=== PATIENT | female | born 1980 | race Caucasian/White ===

== ENCOUNTER 2019-10-31 08:02 | Emergency (ER) | payer OTHER, SELFPAY ==
[2019-10-31 08:07] VITALS: BP 131/92; PULSE 68; RESP 18; TEMP 36.8; O2SAT 99
--- NOTE | 2019-10-31 08:13 | ECG_ITS ---
Measurements Intervals [place] Rate: 73 P: 39 UT: 136 QRS: 66 QRSD: 87 T: 49 QT: 354 QTc: 391 Interpretive Statements SINUS RHYTHM NORMAL ECG Electronically Signed On 10-31-2019 15:58:42 SOCIAL MEDIA ANALYST by Torsten uY D.O.
--- NOTE | 2019-10-31 08:20 | ED.GENADULT ---
HPI - General Adult General Chief complaint: Unspecified Stated complaint: leg pain/tingling Time Seen by Provider: 10/31/19 08:12 Source: patient Mode of arrival: ambulatory Limitations: no limitations History of Present Illness HPI narrative: Pt is a 39 y/o female who presents to the ED with c/o CARLA leg pain that started this morning. Pt has been having rt hip, rt elbow, and rt shoulder pain for a few months as well. She noticed her CARLA leg pain while she was at work. 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 She denies any recent fall or injury. Pt denies N/V, chills, fever. MD complaint: Leg pain Onset (ago): hour(s) (this morning) Location: lower extremity (CARLA) Pain Consistency: constant Associated symptoms: other (rt hip, rt elbow, and rt shoulder pain) Related Data Allergies Allergy/AdvReac Type Severity Reaction Status Date / Time amoxicillin AdvReac Intermediate N&V/DROWSY Verified 10/31/19 08:12 meperidine AdvReac Intermediate REDNESS Verified 10/31/19 08:12 AND BURNING AT IV SITE WITH INJECTION Review of Systems Review of Systems: All systems reviewed & are unremarkable except as noted in HPI and below Constitutional: Constitutional: Denies chills and Reports fever(s) Gastrointestinal: Gastrointestinal: Denies nausea and Denies vomiting Musculoskeletal: Musculoskeletal: Reports other (rt hip, rt elbow, and rt shoulder pain, CARLA leg pain) PMFSH Past Medical History Medical History (Updated 10/31/19 @ 09:43 by Wilber Hunter MD) Ankle fracture, left Arthritis Back injury GI bleed HSV infection Injury of left hip Kidney infection Left hand fracture Right clavicle fracture Surgical History Surgical History (Updated 10/31/19 @ 08:55 by Vinay Harman) H/O dilation and curettage Social History Social History (Updated 10/31/19 @ 08:55 by Vinay Harman) Smoking status: Current every day smoker Exam Narrative: Exam Narrative: GENERAL: Well-appearing, well-nourished, and in no acute distress. HEAD: Normocephalic, atraumatic. EYES: PERRLA and EOMI. ENT: Nares clear, no rhinorrhea or epistaxis. Mucous membranes moist. NECK: Supple. CHEST: Clear to auscultation. No respiratory distress. HEART: Regular rate and rhythm. No murmur heard. Normal peripheral pulses. ABDOMEN: Soft, nontender, nondistended, normal active bowel sounds. EXTREMITIES: Normal range of motion. No edema. SKIN: Warm, dry, no rash. NEURO: No focal deficits. Alert and oriented x3. PSYCH: Normal mood and affect. Course Course Emergency Course: Patient comfortably lying on the stretcher in no discomfort. I discussed her lab work the patient at this time there is no evidence of rhabdomyolysis. Her pain appears to be more more musculoskeletal origin advised her to take pain medication as prescribed. She states that her pain has much improved after IV Toradol. Vital Signs Vital signs: Vital Signs Temperature 36.8 C 10/31/19 08:07 Pulse Rate 68 10/31/19 08:07 Respiratory Rate 18 10/31/19 08:07 Blood Pressure 131/92 H 10/31/19 08:07 Pulse Oximetry 99 10/31/19 08:07 Temperature 36.8 C 10/31/19 08:07 Pulse Rate 68 10/31/19 08:07 Respiratory Rate 18 10/31/19 08:07 Blood Pressure 131/92 H 10/31/19 08:07 Pulse Oximetry 99 10/31/19 08:07 Medical Decision Making Vital Signs Vital Signs: Vital Signs Temperature 36.8 C 10/31/19 08:07 Pulse Rate 68 10/31/19 08:07 Respiratory Rate 18 10/31/19 08:07 Blood Pressure 131/92 H 10/31/19 08:07 Pulse Oximetry 99 10/31/19 08:07 Temperature 36.8 C 10/31/19 08:07 Pulse Rate 68 10/31/19 08:07 Respiratory Rate 18 10/31/19 08:07 Blood Pressure 131/92 H 10/31/19 08:07 Pulse Oximetry 99 10/31/19 08:07 Lab Data Result diagrams: 10/31/19 08:36 10/31/19 08:36 Labs: Lab Results 10/31/19 10/31/19 Range/Units 08:36 08:36 WBC 7.9 (4.5-10.0) K/mm3 RBC 4.42 (4.
[2019-10-31] MEDS: KETOROLAC 30 MG/ML VIAL (*BKC) IV PUSH (08:32)
[2019-10-31 08:45] LABS: Basophils Percent Auto 0.5 % (0.2-1.2); Eosinophils Absolute Auto 0.3 K/mm3 (0-0.3); Eosinophils Percent Auto 3.2 % (0-4.4); Hematocrit 40.6 % (37.0-47.0); Hemoglobin 13.5 g/dL (12.0-15.0); Immature Granulocyte Absolute 0.03 K/mm3 (0.00-0.031); Immature Granulocyte Percent A 0.4 % (0-0.5); Lymphocytes Absolute Auto 2.25 K/mm3 (0.9-3.2); Lymphocytes Percent Auto 28.7 % (18.3-44.2); Mean Corpuscular HGB Conc 33.3 g/dl (32-36); Mean Corpuscular Hemoglobin 30.5 pg (26-34); Mean Corpuscular Volume 91.9 fl (80-100); Mean Platelet Volume 9.4 fl (7.4-10.4); Monocytes Absolute Auto 0.7 K/mm3 (0.1-0.6); Monocytes Percent Auto 8.4 % (2.6-8.5); Neutrophils Absolute Auto 4.6 K/mm3 (1.3-6.7); Neutrophils Percent Auto 58.8 % (45.5-73.1); Platelet Count Result 273 k/mm3 (150-375); Red Blood Count 4.42 M/mm3 (4.2-5.4); Red Cell Distribution Width 12.4 % (11.5-14.5); White Blood Count 7.9 K/mm3 (4.5-10.0)
[2019-10-31 08:56] LABS: Alanine Aminotransferase 19 U/L (4-35); Alkaline Phosphatase 69 U/L (38-126); Aspartate Amino Transferase 25 U/L (14-36); Bilirubin,Total 0.3 mg/dL (0.2-1.3); Blood Urea Nitrogen 9 mg/dL (7-17); Calcium 8.8 mg/dL (8.4-10.2); Carbon Dioxide 27 mmol/L (22-30); Chloride 102 mmol/L (98-107); Creatine Kinase 120 U/L (30-135); Estimated CRCL calculation 78 ml/min; Estimated Glomerular Filt Rate > 60; Glucose 84 mg/dL (65-105); Potassium 4.2 mmol/L (3.4-5.0); Sodium 136 mmol/L (137-145)
--- NOTE | 2019-10-31 09:44 | ED.GENADULT ---
HPI - General Adult General Chief complaint: Unspecified Stated complaint: leg pain/tingling Time Seen by Provider: 10/31/19 08:12 Source: patient Mode of arrival: ambulatory Limitations: no limitations History of Present Illness Location: lower extremity (CARLA) Associated symptoms: other (rt hip, rt elbow, and rt shoulder pain) Related Data Allergies Allergy/AdvReac Type Severity Reaction Status Date / Time amoxicillin AdvReac Intermediate N&V/DROWSY Verified 10/31/19 08:12 meperidine AdvReac Intermediate REDNESS Verified 10/31/19 08:12 AND BURNING AT IV SITE WITH INJECTION PMFSH Past Medical History Medical History (Updated 10/31/19 @ 09:43 by Wilber Hunter MD) Ankle fracture, left Arthritis Back injury GI bleed HSV infection Injury of left hip Kidney infection Left hand fracture Right clavicle fracture Surgical History Surgical History (Updated 10/31/19 @ 08:55 by Vinay Harman) H/O dilation and curettage Social History Social History (Updated 10/31/19 @ 08:55 by Vinay Harman) Smoking status: Current every day smoker Course Vital Signs Vital signs: Vital Signs Temperature 36.8 C 10/31/19 08:07 Pulse Rate 68 10/31/19 08:07 Respiratory Rate 18 10/31/19 08:07 Blood Pressure 131/92 H 10/31/19 08:07 Pulse Oximetry 99 10/31/19 08:07 Temperature 36.8 C 10/31/19 08:07 Pulse Rate 68 10/31/19 08:07 Respiratory Rate 18 10/31/19 08:07 Blood Pressure 131/92 H 10/31/19 08:07 Pulse Oximetry 99 10/31/19 08:07 Medical Decision Making Vital Signs Vital Signs: Vital Signs Temperature 36.8 C 10/31/19 08:07 Pulse Rate 68 10/31/19 08:07 Respiratory Rate 18 10/31/19 08:07 Blood Pressure 131/92 H 10/31/19 08:07 Pulse Oximetry 99 10/31/19 08:07 Temperature 36.8 C 10/31/19 08:07 Pulse Rate 68 10/31/19 08:07 Respiratory Rate 18 10/31/19 08:07 Blood Pressure 131/92 H 10/31/19 08:07 Pulse Oximetry 99 01/29/20 08:07 Lab Data Result diagrams: 10/31/19 08:36 10/31/19 08:36 Labs: Lab Results 10/31/19 10/31/19 Range/Units 08:36 08:36 WBC 7.9 (4.5-10.0) K/mm3 RBC 4.42 (4.2-5.4) M/mm3 Hgb 13.5 (12.0-15.0) g/dL Hct 40.6 (37.0-47.0) % MCV 91.9 (80-100) fl MCH 30.5 (26-34) pg MCHC 33.3 (32-36) g/dl RDW 12.4 (11.5-14.5) % Plt Count 273 (150-375) k/mm3 MPV 9.4 (7.4-10.4) fl Immature Gran % (Auto) 0.4 (0-0.5) % Neut % (Auto) 58.8 (45.5-73.1) % Lymph % (Auto) 28.7 (18.3-44.2) % [place] % (Auto) 8.4 (2.6-8.5) % Eos % (Auto) 3.2 (0-4.4) % Baso % (Auto) 0.5 (0.2-1.2) % Lymph # (Auto) 2.25 (0.9-3.2) K/mm3 [place] # (Auto) 0.7 H (0.1-0.6) K/mm3 Eos # (Auto) 0.3 (0-0.3) K/mm3 Baso # (Auto) 0.0 (0.0-0.1) K/mm3 Abs Immat Gran (auto) 0.03 (0.00-0.031) K/mm3 Absolute Neuts (auto) 4.6 (1.3-6.7) K/mm3 Absolute Nucleated RBC 0.0 (0.0-0.012) K/mm3 Nucleated RBC % 0.0 (0.0-0.2) % Sodium 136 L (137-145) mmol/L Potassium 4.2 (3.4-5.0) mmol/L Chloride 102 (98-107) mmol/L Carbon Dioxide 27 (22-30) mmol/L BUN 9 (7-17) mg/dL Creatinine 0.70 (0.7-1.0) mg/dL Estim Creat Clear Calc 78 ml/min Estimated GFR > 60 (59 - ) Glucose 84 (65-105) mg/dL Calcium 8.8 (8.4-10.2) mg/dL Total Bilirubin 0.3 (0.2-1.3) mg/dL AST 25 (14-36) U/L ALT 19 (4-35) U/L Alkaline Phosphatase 69 (38-126) U/L Total Creatine Kinase 120 (30-135) U/L Total Protein 7.0 (6.3-8.2) g/dL Albumin 4.0 (3.5-5.1) g/dL ECG Data EKG #1: ECG completion date: 10/31/19 ECG completion time: 08:16 EKG Interpretation: normal rate (73), sinus rhythm (73), no ectopy, no ST changes and normal QRS Discharge Plan Discharge Clinical Impression: Myalgia Patient Disposition: Still a Patient Condition: Stable Instructions: Musculoskeletal Pain (ED) Additional
--- NOTE | 2019-10-31 10:05 | PC.NURSE ---
Patient very upset and angry at time of discharge. Patient states All of you people do not know anything, all you did was draw my blood. I needed an xray of my whole body today. This is stupid shit and a waste of my time. I will go to another hospital. I dont want your discharge papers. Patient pulled out IV without RN present.
== END 2019-10-31 10:10 | disposition home or self-care (01) ==
PROVIDERS: Emergency Provider Family Medicine; PCP Internal Medicine
DX: M79.10 Myalgia, unspecified site (principal); M19.90 Unspecified osteoarthritis, unspecified site; Z87.440 Personal history of urinary (tract) infections; F17.200 Nicotine dependence, unspecified, uncomplicated
CPT/HCPCS: 36415; 80053; 82550; 85025; 93005; 96374; 99284; J1885

== ENCOUNTER 2020-07-10 06:56 | Outpatient (NON) | payer OTHER, SELFPAY ==
[2020-07-10 16:38] LABS: SARS-CoV-2 RNA PCR Negative
== END 2020-07-10 06:57 ==
PROVIDERS: PCP Internal Medicine; Visit Provider Obstetrics & Gynecology
DX: Z20.828 Contact with and (suspected) exposure to other viral communicable diseases (principal); O90.89 Other complications of the puerperium, not elsewhere classified; R68.89 Other general symptoms and signs
CPT/HCPCS: 87635; C9803; U0003

== ENCOUNTER 2020-07-22 22:52 | Observation (INO) | payer OTHER, SELFPAY ==
--- NOTE | 2020-07-22 22:51 | PC.NURSE ---
Report called to [facility] at [phone]. Pt transported via wheelchair to OB department.
[2020-07-22 23:06] VITALS: BP 132/79; PULSE 88
[2020-07-22 23:15] VITALS: BP 138/87; PULSE 84
[2020-07-22 23:30] VITALS: BP 129/72; PULSE 70
[2020-07-22 23:45] VITALS: BP 120/69; PULSE 71
[2020-07-23] VITALS: BP 121/80; PULSE 67
[2020-07-23 00:21] VITALS: BMI 28.7
--- NOTE | 2020-07-23 00:21 | LDADM ---
This patient, Donna Perez, was admitted to OB Post 117 on 07/22/20 at 22:52. Plans for labor, pain management and were discussed with patient. Patient/family oriented to hospital policies and general routines including ID bracelet, bed and alarms, visiting hours, pain management, procedures, bathroom and other care routines, personal items, smoking policy, room service/diet and guest tray routines, infant security routines, and visiting hours. Patient/Family are encouraged to report perceived risks to care and to ask questions if they do not understand what they are told or what they should do. See OBIX for further documentation.
--- NOTE | 2020-07-23 00:36 | PC.NURSE ---
07/22/2020-2252- pt came from ER c/o left sided abdominal pain that started at 7 pm tonight while working. pt states that she has been working on her feet for 8-10 hour days for about 2 weeks. pt states that she doesn't drink alot of fluids but chews on ice. no bleeding, leaking of fluid, pt is feeling baby move well. pt also states that she fell about 3 days ago and landed on her knee but did not hit her belly. 07/23/2020 000- called Brisa LOAIZAZander- informed her of pt admission. reviewed strip, pt states that she feels so much better since she has been here. not c/o abdominal pain since sitting down and drinking water. Discharge orders received. will educate pt on when to return to OB unit.
--- NOTE | 2020-07-25 03:10 | PM.OBTRLD ---
OB - Triage/Final Diagnosis Visit Information Date of evaluation: 07/23/20 Reason for evaluation: threatened labor
== END 2020-07-23 00:52 | disposition home or self-care (01) ==
PROVIDERS: Admitting Provider Obstetrics & Gynecology; PCP Internal Medicine; Visit Provider Obstetrics & Gynecology
DX: O47.9 False labor, unspecified (principal); Z3A.00 Weeks of gestation of pregnancy not specified
CPT/HCPCS: G0378; G0379

== ENCOUNTER 2020-08-22 05:00 | Inpatient (IN) | payer OTHER, SELFPAY ==
[2020-08-22] VITALS (60 sets, daily range): BP systolic 89–126; BP diastolic 44–86; PULSE 32–120; RESP 16; TEMP 36.2–37; O2SAT 95–100; BMI 28.7
[2020-08-22 05:45] LABS: Basophils Absolute Auto 0.1 K/mm3 (0.0-0.1); Basophils Percent Auto 0.7 % (0.2-1.2); Eosinophils Absolute Auto 0.1 K/mm3 (0-0.3); Eosinophils Percent Auto 0.6 % (0-4.4); Hematocrit 31.3 % (37.0-47.0); Hemoglobin 10.4 g/dL (12.0-15.0); Immature Granulocyte Absolute 0.09 K/mm3 (0.00-0.031); Immature Granulocyte Percent A 0.7 % (0-0.5); Lymphocytes Absolute Auto 3.15 K/mm3 (0.9-3.2); Lymphocytes Percent Auto 25.8 % (18.3-44.2); Mean Corpuscular HGB Conc 33.2 g/dl (32-36); Mean Corpuscular Hemoglobin 27.2 pg (26-34); Mean Corpuscular Volume 81.7 fl (80-100); Monocytes Absolute Auto 0.7 K/mm3 (0.1-0.6); Monocytes Percent Auto 5.7 % (2.6-8.5); Neutrophils Absolute Auto 8.1 K/mm3 (1.3-6.7); Neutrophils Percent Auto 66.5 % (45.5-73.1); Platelet Count Result 256 k/mm3 (150-375); Red Blood Count 3.83 M/mm3 (4.2-5.4); Red Cell Distribution Width 13.9 % (11.5-14.5); White Blood Count 12.2 K/mm3 (4.5-10.0)
--- NOTE | 2020-08-22 05:48 | LDADM ---
This patient, Donna Perez, was admitted to Labor/Delivery/Recovery 105 on 08/22/20 at 05:00. Plans for labor, pain management and were discussed with patient. Patient/family oriented to hospital policies and general routines including ID bracelet, bed and alarms, visiting hours, pain management, procedures, bathroom and other care routines, personal items, smoking policy, room service/diet and guest tray routines, security routines, and visiting hours. Patient/Family are encouraged to report perceived risks to care and to ask questions if they do not understand what they are told or what they should do. See OBIX for further documentation.
--- NOTE | 2020-08-22 06:41 | WPDANESEPP ---
Anes - Eval Pre Procedure Procedure: Labor epidural Date/Time: 08/22/20 06:41 Surgeon: Martha Preop Diagnosis: pain during labor Pre Op Diagnosis: Induction of Labor Patient Data Age: 40 Gender: F Height: 1.6 m Weight: 73.5 kg Allergies Allergy/AdvReac Type Severity Reaction Status Date / Time amoxicillin AdvReac Intermediate N&V/DROWSY Verified 10/31/19 08:12 meperidine AdvReac Intermediate REDNESS Verified 10/31/19 08:12 AND BURNING AT IV SITE WITH INJECTION Home Medications Medication Instructions Recorded Confirmed Type naproxen 500 mg PO BID PRN #14 tablet 10/31/19 Rx Laboratory Tests 08/22/20 08/22/20 05:35 05:35 WBC 12.2 K/mm3 H K/mm3 (4.5-10.0) RBC 3.83 M/mm3 L M/mm3 (4.2-5.4) Hgb 10.4 g/dL L D g/dL (12.0-15.0) Hct 31.3 % L % (37.0-47.0) MCV 81.7 fl fl (80-100) MCH 27.2 pg pg (26-34) MCHC 33.2 g/dl g/dl (32-36) RDW 13.9 % % (11.5-14.5) Plt Count 256 k/mm3 k/mm3 (150-375) MPV 10.0 fl fl (7.4-10.4) Immature Gran % (Auto) 0.7 % H % (0-0.5) Neut % (Auto) 66.5 % % (45.5-73.1) Lymph % (Auto) 25.8 % % (18.3-44.2) [place] % (Auto) 5.7 % % (2.6-8.5) Eos % (Auto) 0.6 % % (0-4.4) Baso % (Auto) 0.7 % % (0.2-1.2) Lymph # (Auto) 3.15 K/mm3 K/mm3 (0.9-3.2) [place] # (Auto) 0.7 K/mm3 H K/mm3 (0.1-0.6) Eos # (Auto) 0.1 K/mm3 K/mm3 (0-0.3) Baso # (Auto) 0.1 K/mm3 K/mm3 (0.0-0.1) Abs Immat Gran (auto) 0.09 K/mm3 H K/mm3 (0.00-0.031) Absolute Neuts (auto) 8.1 K/mm3 H K/mm3 (1.3-6.7) Absolute Nucleated RBC 0.0 K/mm3 K/mm3 (0.0-0.012) Nucleated RBC % 0.0 % % (0.0-0.2) RPR Pending Patient hx anesthesia problems: none Family hx anesthesia problems: none COUNTS INCLUDE 234 BEDS AT THE [facility] Past Medical History Medical History (Updated 08/22/20 @ 06:41 by Angela Hernandez CRNA) Ankle fracture, left Arthritis Back injury GI bleed HSV infection Injury of left hip Kidney infection Left hand fracture Right clavicle fracture Surgical History Surgical History (Updated 10/31/19 @ 08:55 by Vinay Harman) H/O dilation and curettage Social History Social History (Updated 10/31/19 @ 08:55 by Vinay Harman) Smoking status: Heavy tobacco smoker Tobacco type: cigarettes Second hand tobacco smoke exposure: Yes Substance use: current Gender identity (if verbalized by the patient): Female Sexual Orientation (if Verbalized by the Patient): Straight or Heterosexual Spiritual care concerns: No Exam Day of Procedure 08/22/20 06:41
[2020-08-22] MEDS: LACTATED RINGERS 1,000 ML 125 ML IV CONT ×2 (06:56→11:01)
[2020-08-22] MEDS: OXYTOCIN 30 UNITS/NS 500 ML 30 UNITS/500 ML BAG IV CONT (06:56)
--- NOTE | 2020-08-22 07:26 | WPDOBADMIT ---
Obstetrics - Admit Note Admission Note: record reviewed. No pertinent additions to the history and/or any subsequent changes in the physical findings that are not consistent with the expected course of the were found.Pt here for EIL at 39 weeks, SVE /-2 AROM large amount of clear, odorless amniotic fludi Additions to the history and/or subsequent changes in the physical findings follow. None.
[2020-08-22 08:18] LABS: Rapid Plasma Reagin Non-Reactive (NonReactive)
[2020-08-22] MEDS: ONDANSETRON INJ 4 MG/2 ML VIAL IV PUSH (11:01)
[2020-08-22 12:48] LABS: Amphetamine Screen Urine Negative (Negative); Barbiturate Screen Urine Negative (Negative); Benzodiazepines Screen Urine Negative (Negative); Cannabinoid Screen Urine Negative (Negative); Cocaine Screen Urine Negative (Negative); Methadone Screen Urine Negative (Negative); Opiate Screen Urine Negative (Negative); Phencyclidine Screen Urine Negative (Negative)
--- NOTE | 2020-08-22 12:53 | PM.OBPRVD ---
OB - Delivery Note Procedure Delivery date: 08/22/20 Procedure: vaginal delivery Intrapartal events: None Induction method: AROM and per pitocin protocol Delivery monitor: external FHT and external uterine Laceration Description: None Specimen: No Baby Date of : 08/22/20 Time of : 12:40 Weeks of gestation at delivery: 39 Infant gender: Male Weight (pounds): 6 Weight (ounces): 2 presentation: vertex position: Left Occiput Anterior Placenta delivery description: Spontaneous cord vessel description: 3 Vessels, Nuchal Cord and Clamped/Cut score one minute: 9 score five minutes: 9 Narrative: mother and baby skin to skin in stable condition
[2020-08-22] MEDS: OXYTOCIN 30 UNITS/NS 500 ML 30 UNITS/500 ML BAG 125 UNITS IV CONT (13:24)
[2020-08-23 05:01] LABS: Hemoglobin 9.6 g/dL (12.0-15.0)
--- NOTE | 2020-08-23 07:30 | PC.NURSE ---
PT introductions made and plan of care discussed per post , pain management, bottle feeding, daily care activities and pending discharge to home. PT verbalized understanding of such care.
--- NOTE | 2020-08-23 07:53 | PM.OBPNVD ---
OB - PN: Subj Subjective Date/time seen: 08/23/20 07:53 Patient comments: no complaints baby status: doing well OB - PN: Obj Data Labs CBC & Chem 7: 08/23/20 03:29 Labs: Laboratory Results - last 24 hr 08/22/20 08/22/20 08/23/20 05:35 12:05 03:29 Hgb 9.6 L Hct 29.0 L Urine Opiates Screen Negative Urine Methadone Screen Negative Ur Barbiturates Screen Negative Ur Phencyclidine Scrn Negative Ur Amphetamine Screen Negative U Benzodiazepines Scrn Negative Urine Cocaine Screen Negative U Cannabinoids Screen Negative RPR Non-reactive OB - PN A/P Plan day: 1 Plan: routine care and discharge home (F/U in 4 weeks) Time Spent With Patient Time: Total time spent is greater than 50% in coordination of care (as documented) at patient's floor/unit and/or counseling patient: Time with patient: less than 15 minutes Review of Systems Review of Systems: All systems reviewed & are unremarkable except as noted in HPI and below Exam Narrative: Exam Narrative: Fundus firm and vaginal flow controlled. No lower ext redness, warmth, or edema. Negative homans. Const: General: comfortable Chest: Breast/axilla inspection: normal inspection of the breasts Resp: Effort & Inspection: normal respiratory effort Cardio: Rate: regular rate GI: GI Palp: Yes Soft to palpation Psych: Appearance: grossly normal Affect: normal affect Attitude: cooperative Thought content: Yes Normal thought content present Judgement: Good judgement present (Psych)
--- NOTE | 2020-08-23 07:53 | PM.OBDSVD ---
DS: Admitting Diagnosis Admitting Diagnosis Admitting Diagnosis: Induction of Labor OB - DS: Summary OB Procedures : None OB Procedures Intrapartum: Spontaneous Vag Delivery OB Procedures: : None Time Spent with Patient Time attestation: Total time spent providing and/or coordinating discharge services: DS: Data Data Completed and Pending Labs on day of discharge: Labs from last 24 hours 08/23/20 08/22/20 08/22/20 03:29 12:05 05:35 Hgb 9.6 L Hct 29.0 L Urine Opiates Screen Negative Urine Methadone Screen Negative Ur Barbiturates Screen Negative Ur Phencyclidine Scrn Negative Ur Amphetamine Screen Negative U Benzodiazepines Scrn Negative Urine Cocaine Screen Negative U Cannabinoids Screen Negative RPR Non-reactive Discharge Plan Discharge Discharging Clinician: Maryjo Combs Patient Disposition: Home, Self-Care Activity: pelvic rest Diet: as tolerated Patient Instructions: Antibiotic Form Stand Alone Forms: General Discharge Information Follow-up/Referrals: Brisa Perkins CNM [Certified Nurse Film Crew Member] - Discharge Medications: Continued aspirin 81 mg tablet,chewable RF: 0 No Action naproxen 500 mg tablet 500 mg PO BID PRN (Reason: pain) Qty: 14 RF: 0 Date of admission: 08/22/20 05:00 Primary Care Provider: AyakaSunny Admitting Provider: Andi Thomas Attending physician on admission: Andi Thomas Condition: Stable
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
[2020-08-23 11:00] VITALS: BP 137/73; PULSE 76; RESP 18; TEMP 36.6; O2SAT 100
[2020-08-23] MEDS: MULTIVIT/MIN/PREN/FOL AC/IRON TABLET 1 TAB PO (11:11)
[2020-08-23] MEDS: POLYSACCHARIDE IRON COMPLEX 150 MG CAPSULE PO (11:11)
[2020-08-23] MEDS: DOCUSATE SODIUM 100 MG CAPSULE PO (11:11)
[2020-08-23] MEDS: ACETAMINOPHEN 325 MG TABLET 650 MG PO (11:11)
[2020-08-23] MEDS: IBUPROFEN 600 MG TABLET PO (11:14)
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
--- NOTE | 2020-08-23 14:00 | PC.NURSE ---
PT received discharge instructions per protocol and verbalized understanding of such care.
[2020-08-26 09:34] VITALS: BP 114/79; PULSE 94; RESP 16; TEMP 36.8; O2SAT 99
== END 2020-08-23 14:35 | disposition home or self-care (01) | DRG 560 ==
LOC: ANHLDR 05:03 → ANHOB2 15:39
PROVIDERS: Advanced Practice Midwife; Admitting Provider Obstetrics & Gynecology; PCP Internal Medicine; Visit Provider Obstetrics & Gynecology
DX: O69.81X0 Labor and delivery complicated by cord around neck, without compression, not applicable or unspecified (principal); O99.334 Smoking (tobacco) complicating childbirth; F17.210 Nicotine dependence, cigarettes, uncomplicated; Z3A.39 39 weeks gestation of pregnancy; Z37.0 Single live birth
CPT/HCPCS: 36415; 80307; 85014; 85018; 85025; 86592; 86850; 86900; 86901; A9270; J2405; J2590; J2795; J7120

== ENCOUNTER 2021-02-21 11:30 | Emergency (ER) | payer OTHER, SELFPAY ==
[2021-02-21 11:48] VITALS: BP 117/81; PULSE 90; RESP 17; TEMP 36.7; O2SAT 98
--- NOTE | 2021-02-21 11:57 | PC.NURSE ---
Call For Help Contacted at this time. Sending advocate out at this time.
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
--- NOTE | 2021-02-21 13:41 | PC.NURSE ---
Patient states I am going outside for one minute, I will be back.
--- NOTE | 2021-02-21 13:49 | PC.NURSE ---
patient states that she does not have time to wait and wants to leave due to shift foreman issues. patient asked to stay for EDP evaluation and to talk with law enforcement once they arrive. patient back in room 22 at this time.
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
--- NOTE | 2021-02-21 14:01 | PC.NURSE ---
patient requesting to leave AMA, does not want any more exams or tests. EDP aware
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
== END 2021-02-21 15:05 | disposition left against medical advice (07) ==
PROVIDERS: Emergency Provider Emergency Medicine; PCP Internal Medicine
DX: T74.21XA Adult sexual abuse, confirmed, initial encounter (principal); R10.2 Pelvic and perineal pain; M19.90 Unspecified osteoarthritis, unspecified site; F17.210 Nicotine dependence, cigarettes, uncomplicated; Y07.9 Unspecified perpetrator of maltreatment and neglect
CPT/HCPCS: 99285

== ENCOUNTER 2021-03-09 00:27 | Emergency (ER) | payer OTHER, SELFPAY ==
[2021-03-09 00:40] VITALS: BP 131/84; PULSE 67; RESP 18; TEMP 36.6; O2SAT 100
--- NOTE | 2021-03-09 01:30 | PC.NURSE ---
pt states she is just going to see her doctor in the morning and that she needs to get home with her daughter. this rn informs pt of risks of leaving and that she can return if her symptoms continue or worsen. pt ambulated out of facility w/ steady gait.
== END 2021-03-09 01:30 | disposition left against medical advice (07) ==
PROVIDERS: PCP Obstetrics & Gynecology
DX: Z53.21 Procedure and treatment not carried out due to patient leaving prior to being seen by health care provider (principal)
CPT/HCPCS: 99199

== ENCOUNTER 2021-04-26 12:22 | Emergency (ER) | payer OTHER, SELFPAY ==
[2021-04-26 12:58] VITALS: BP 120/88; PULSE 88; RESP 16; TEMP 36.1; O2SAT 99
--- NOTE | 2021-04-26 13:07 | ED.SKABFB ---
HPI - Skin/Abscess/Foreign Bdy General Chief complaint: Skin/Abscess/Foreign Body Stated complaint: Skin Irration Time Seen by Provider: 04/26/21 13:05 Source: patient Mode of arrival: ambulatory Limitations: no limitations History of Present Illness HPI narrative: Donna Perez is a 41 yo female with no PMH who [facility] with round red sores all over her hands arms and legs that have evolved in the past 2 days. States she does not know started but she suspected it could be a spider bite Related Data Allergies Allergy/AdvReac Type Severity Reaction Status Date / Time amoxicillin AdvReac Intermediate N&V/DROWSY Verified 02/21/21 11:53 meperidine AdvReac Intermediate REDNESS Verified 02/21/21 11:53 AND BURNING AT IV SITE WITH INJECTION Review of Systems Review of Systems: Narrative: CONSTITUTIONAL: Denies fever, chills, sweats. EYES: Denies visual changes, redness, discharge. ENT: Denies rhinorrhea, congestion, sore throat, otalgia. CARDIOVASCULAR: Denies chest pain, palpitations, edema. RESPIRATORY: Denies dyspnea, wheezing, cough GASTROINTESTINAL: Denies abdominal pain, nausea, vomiting, diarrhea. GENITOURINARY: Denies dysuria, hematuria, abnormal discharge SKIN: Denies rash or itching. Multiple red and inflamed areas that are pussy and tender NEUROLOGIC: Denies numbness, or focal weakness. PSYCHIATRIC: Denies anxiety or depression. [facility] Past Medical History Medical History Ankle fracture, left Arthritis Back injury GI bleed HSV infection Injury of left hip Kidney infection Left hand fracture Right clavicle fracture Surgical History Surgical History H/O dilation and curettage Family History Family History Other Diabetes mellitus High cholesterol Hypertension Social History Social History Smoking status: Heavy tobacco smoker Tobacco type: cigarettes Second hand tobacco smoke exposure: Yes Substance use: current Gender identity (if verbalized by the patient): Female Spiritual care concerns: No Comments At time of signature, I agree with nursing past medical, surgical, social and family history. There is no relevant family history pertinent to the presenting complaint. Exam Narrative: Exam Narrative: GENERAL: This is a well-nourished, well-developed patient, in mild distress. HEAD: normocephalic, atraumatic. EYES:. Sclera clear/white. Vision is grossly intact. EARS: External ears normal, Hearing grossly intact. NOSE: External nose normal without nasal discharge, nares without redness, no rhinorrhea. THROAT: Mucous membranes moist, posterior pharynx NECK: Neck supple, CARDIOVASCULAR: Regular rate and rhythm without murmurs, gallops, or rubs. RESPIRATORY: Clear to auscultation. Breath sounds equal bilaterally. No wheezes, rales, or rhonchi. GASTROINTESTINAL: Abdomen soft, non-tender, SKIN: warm, intact with multiple areas on her arms and legs and her back that are erythematous mildly indurated warm and draining pus NEURO: awake, alert, and oriented to person, place and time. There were no obvious focal neurologic abnormalities. Steady gait EXTREMITIES: Normal range of motion. BACK: Nontender without deformity Course Course Emergency Course: Patient comes to [facility] with multiple erythematous tender pussy lesions on arms legs and back Started on Keflex and Bactrim Hibiclens wash Patient may also use hydrocortisone cream after washing Vital Signs Vital signs: Vital Signs Temperature 97.0 F L 04/26/21 12:58 Pulse Rate 88 04/26/21 12:58 Respiratory Rate 16 04/26/21 12:58 Blood Pressure 120/88 04/26/21 12:58 Pulse Oximetry 99 04/26/21 12:58 Temperature 97.0 F L 04/26/21 12:58 Pulse Rate 88 04/26
== END 2021-04-26 13:22 | disposition home or self-care (01) ==
PROVIDERS: Emergency Provider Nurse Practitioner; PCP Internal Medicine
DX: L03.114 Cellulitis of left upper limb (principal); L03.113 Cellulitis of right upper limb; L03.116 Cellulitis of left lower limb; L03.115 Cellulitis of right lower limb; L03.312 Cellulitis of back [any part except buttock and flank]; F17.210 Nicotine dependence, cigarettes, uncomplicated; M19.90 Unspecified osteoarthritis, unspecified site
CPT/HCPCS: 99213; G0463

== ENCOUNTER 2021-10-09 19:51 | Emergency (ER) | payer OTHER, SELFPAY ==
[2021-10-09 19:52] VITALS: BP 121/84; PULSE 141; RESP 18; TEMP 37.1; O2SAT 100
--- NOTE | 2021-10-09 20:18 | ED.URI ---
HPI - URI/Sore Throat General Chief Complaint: Fever Stated Complaint: Fever, I need a covid test. Time Seen by Provider: 10/09/21 20:07 Source: patient Mode of arrival: ambulatory Limitations: no limitations History of Present Illness HPI Narrative: Patient is a 41-year-old female complaining of cough, nasal congestion, body aches, fever, and chills that started last night. Patient states that she has been exposed to someone with Covid. Patient denies any chest pain, shortness of breath, abdominal pain, nausea, vomiting, diarrhea or urinary symptoms. Related Data Allergies Allergy/AdvReac Type Severity Reaction Status Date / Time amoxicillin AdvReac Intermediate N&V/DROWSY Verified 02/21/21 11:53 meperidine AdvReac Intermediate REDNESS Verified 02/21/21 11:53 AND BURNING AT IV SITE WITH INJECTION Review of Systems Review of Systems: All systems reviewed & are unremarkable except as noted in HPI and below Constitutional: Constitutional: Denies excessive sweating, Denies fatigue, Denies fever(s), Denies headache(s), Denies lethargy, Denies weakness and Denies weight loss Eyes: Eyes: Denies blurry vision, Denies change in vision and Denies loss of vision ENT: Denies dizziness, Denies ear discharge, Denies headache(s), Denies lip swelling, Denies epistaxis, Denies neck pain, Denies throat swelling and Denies tongue swelling Cardiovascular: Cardiovascular: Denies chest pain, Denies chest pain at rest, Denies chest pain with activity, Denies diaphoresis, Denies rapid heart rate, Denies edema, Denies irregular heart rhythm, Denies lightheadedness, Denies palpitations, Denies dyspnea and Denies dyspnea on exertion Respiratory: Respiratory: Denies chest congestion, Denies hemoptysis, Denies dyspnea and Denies dyspnea on exertion Gastrointestinal: Gastrointestinal: Denies abdominal pain, Denies melena, Denies hematochezia, Denies diarrhea, Denies nausea, Denies vomiting and Denies hematemesis Musculoskeletal: Musculoskeletal: Denies abnormal gait, Denies deformity, Denies joint swelling, Denies limited range of motion, Denies neck pain and Denies numbness Neurologic: Denies Abnormal speech present, Denies abnormal gait, Denies confusion, Denies dizziness, Denies headache(s), Denies focal weakness, Denies loss of vision, Denies numbness, Denies Other visual disturbances, Denies Sensory deficit (Neuro) and Denies weakness Psychiatric: Psychiatric: Denies confusion, Denies depression, Denies auditory hallucinations, Denies homicidal ideation and Denies suicidal ideation Endocrine: Endocrine: Denies cold intolerance, Denies excessive sweating, Denies fatigue, Denies heat intolerance and Denies palpitations Hematologic/Lymphatic: Hematologic/Lymphatic: Denies easy bleeding and Denies easy bruising Allergic/Immunologic: Allergic/Immunologic: Denies lip swelling, Denies throat swelling and Denies tongue swelling PMFSH Past Medical History Medical History Ankle fracture, left Arthritis Back injury GI bleed HSV infection Injury of left hip Kidney infection Left hand fracture Right clavicle fracture Surgical History Surgical History H/O dilation and curettage Family History Family History Other Diabetes mellitus High cholesterol Hypertension Social History Social History Smoking status: Heavy tobacco smoker Tobacco type: cigarettes Second hand tobacco smoke exposure: Yes Substance use: current Gender identity (if verbalized by the patient): Female Sexual Orientation (if Verbalized by the Patient): Straight or Heterosexual Spiritual care concerns: No Exam Const: General: cooperative, healthy appearing, comfortable, no acute distress, well developed, alert and awak
[2021-10-09] MEDS: IBUPROFEN 600 MG TABLET PO (20:27)
[2021-10-09] MEDS: ACETAMINOPHEN 325 MG TABLET 650 MG PO (20:28)
[2021-10-09 21:11] LABS: SARS-CoV-2 RNA PCR Positive
== END 2021-10-09 22:09 | disposition home or self-care (01) ==
PROVIDERS: Emergency Provider Emergency Medicine; PCP Internal Medicine
DX: U07.1 COVID-19 (principal); M19.90 Unspecified osteoarthritis, unspecified site; F17.210 Nicotine dependence, cigarettes, uncomplicated
CPT/HCPCS: 87804; 99283; A9270; C9803; U0003; U0005

== ENCOUNTER 2021-12-08 11:03 | Emergency (ER) | payer OTHER, SELFPAY ==
--- NOTE | ~2021-12-08 | XR_ITS ---
EXAMINATION: XR ribs LT 2V INDICATION: Left rib pain TECHNIQUE: 3 views of the left ribs were obtained. COMPARISON: 03/31/2007 FINDINGS: The visualized portions of the lungs are clear. There is no pleural effusion or pneumothora x. The cardiomediastinal silhouette is normal. No displaced rib fracture is identified. IMPRESSION: 1. No acute cardiopulmonary abnormality or evidence of displaced rib fracture. Reviewed, dictated and finalized at location B. 

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
[2021-12-08 11:19] VITALS: BP 113/79; PULSE 113; RESP 16; TEMP 37.4; O2SAT 100
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
== END 2021-12-08 12:10 | disposition home or self-care (01) ==
PROVIDERS: Emergency Provider Nurse Practitioner Family
DX: S16.1XXA Strain of muscle, fascia and tendon at neck level, initial encounter (principal); S29.011A Strain of muscle and tendon of front wall of thorax, initial encounter; V43.52XA Car driver injured in collision with other type car in traffic accident, initial encounter; M19.90 Unspecified osteoarthritis, unspecified site; F17.210 Nicotine dependence, cigarettes, uncomplicated
CPT/HCPCS: 71100; 72050; 99214; G0463

== ENCOUNTER 2022-04-27 10:42 | Emergency (ER) | payer OTHER, SELFPAY ==
[2022-04-27 10:51] VITALS: BP 124/84; PULSE 79; RESP 16; TEMP 36.6; O2SAT 99
--- NOTE | 2022-04-27 11:02 | ED.URI ---
HPI - URI/Sore Throat General Chief Complaint: Dental/Oral Stated Complaint: sore throat Time Seen by Provider: 04/27/22 11:00 Source: patient Mode of arrival: ambulatory History of Present Illness HPI Narrative: 42-year-old female presented for complaints of a sore to the gum at the top of front tooth for over one year since abscess had been treated, as well as left upper molar pain and bad taste for one month. Has not seen dentist in at least 5 years. Denies nausea, vomiting, difficulty swallowing, fever or chills. Hx dental caries. Smokes 1ppd. Has not taken anything for symptoms. Related Data Allergies Allergy/AdvReac Type Severity Reaction Status Date / Time amoxicillin AdvReac Intermediate N&V/DROWSY Verified 04/27/22 11:01 meperidine AdvReac Intermediate REDNESS Verified 04/27/22 11:01 AND BURNING AT IV SITE WITH INJECTION Review of Systems Review of Systems: CONSTITUTIONAL: Denies body aches, fever, chills ENT: Denies rhinorrhea, congestion, sore throat, or otalgia. Reports dental pain CARDIOVASCULAR: Denies chest pain, palpitations RESPIRATORY: Denies cough or dyspnea. SKIN: Denies rash, itching, or wounds. MUSCULOSKELETAL: Denies myalgia. NEUROLOGIC: Denies headache, numbness, tingling, or weakness. [facility] Past Medical History Medical History Ankle fracture, left Arthritis Back injury GI bleed HSV infection Injury of left hip Kidney infection Left hand fracture Right clavicle fracture Surgical History Surgical History H/O dilation and curettage Family History Family History Other Diabetes mellitus High cholesterol Hypertension Social History Social History Smoking status: Heavy tobacco smoker Tobacco type: cigarettes Second hand tobacco smoke exposure: Yes Substance use: current Gender identity (if verbalized by the patient): Female Sexual Orientation (if Verbalized by the Patient): Straight or Heterosexual Spiritual care concerns: No Comments At time of signature, I have reviewed and agree with nursing past medical, surgical, social and family history unless otherwise noted. Please see nursing chart for further information. There is no relevant family history pertinent to the presenting complaint Exam Narrative: GENERAL: well appearing; no acute distress. HEAD: Normocephalic, atraumatic. EYES: EOMI. No redness or drainage. Conjunctivae normal. ENT: Dental pain location of #16 molar, no apparent drainage, mild swelling and tenderness to palpation; approx 2mm diameter opaque lesion to gum above #9 without tenderness to palpation; Mucous membranes pink and moist. TMs normal bilaterally. Throat normal. Uvula midline. NECK: Normal AROM. No lymphadenopathy. CHEST: No respiratory distress. HEART: Regular rate and rhythm. SKIN: Warm, dry, no rash. NEURO: No focal deficits. Alert and oriented x3. Course Course Emergency Course: Patient is aware of diagnosis, understands and agrees to treatment plan. Anticipatory guidance given. Patient agrees to follow-up as directed and is aware of reasons to seek care at the emergency department. Portions of this record may have been created with voice recognition software Level of Care: Express Care Visit Vital Signs Vital signs: Vital Signs Temperature 97.9 F 04/27/22 10:51 Pulse Rate 79 04/27/22 10:51 Respiratory Rate 16 04/27/22 10:51 Blood Pressure 124/84 04/27/22 10:51 Pulse Oximetry 99 04/27/22 10:51 Oxygen Delivery Room Air 04/27/22 10:51 Temperature 97.9 F 04/27/22 10:51 Pulse Rate 79 04/27/22 10:51 Respiratory Rate 16 04/27/22 10:51 Blood Pressure 124/84 04/27/22 10:51 Pulse Oximetry 99 04/27/22 10:51 Oxygen Delivery R
== END 2022-04-27 11:17 | disposition home or self-care (01) ==
PROVIDERS: Emergency Provider Nurse Practitioner Family; PCP Internal Medicine
DX: K04.7 Periapical abscess without sinus (principal); F17.210 Nicotine dependence, cigarettes, uncomplicated; M19.90 Unspecified osteoarthritis, unspecified site
CPT/HCPCS: 99213; G0463

== ENCOUNTER 2022-09-28 08:51 | Emergency (ER) | payer OTHER, SELFPAY ==
--- NOTE | ~2022-09-28 | CT_ITS ---
CT ANGIOGRAM NECK AND HEAD History: Left visual changes. Technique: Serial spiral axial images through the head and neck were obtained during arterial phase I V injection of 100 cc of Omnipaque 350. 3-D postprocessing and MIP images were then reconstructed on the remote workstation. Dose reduction technique was used on this scan by utilizing automated exposur e control and iterative reconstruction technique. The dose-length product (DLP) was 1558.50 mGy-cm. CTA neck findings: Bilateral common carotid, internal carotid, and external carotid arteries are pat ent. The proximal right internal carotid artery demonstrates 0% stenosis relative to the normal dista l artery lumen diameter. The proximal left internal carotid artery demonstrates 0% stenosis relative to the normal distal artery lumen diameter. Bilateral vertebral arteries are patent, without stenosis or occlusion. CTA head findings: Distal vertebral arteries, basilar artery, and posterior cerebral arteries are pat ent. Distal internal carotid arteries, middle cerebral arteries, anterior cerebral arteries are paten t. No stenosis or occlusion. No aneurysm seen. Noncontrast brain images are unremarkable. No parenchymal mass or intracranial hemorrhage identified. Impression: No significant abnormality seen. Reviewed, dictated and finalized at location . ET BROKER Impression: No significant abnormality seen.
--- NOTE | ~2022-09-28 | CT_ITS ---
Noncontrast CT scan of the cervical spine Technique: Multiple contiguous axial [address] images of the cervical spine were obtained and rec onstructed in 2D sagittal and coronal planes on the acquisition scanner. Dose reduction technique was used on this scan by utilizing automated exposure control, adjustment of the mA and/or kV according to patient size. Clinical History: Pain Findings: No fractures or dislocations. Unremarkable visualized bony structures. The intervertebral disc spaces are preserved. No prevertebral soft tissue swelling. Impression: No fracture or subluxation of the cervical spine. Reviewed, dictated and finalized at location M. FIER Impression: No fracture or subluxation of the cervical spine.
[2022-09-28 08:55] VITALS: BP 152/86; PULSE 90; RESP 14; TEMP 36.9; O2SAT 98
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
[2022-09-28 09:36] LABS: Basophils Absolute Auto 0.1 K/mm3 (0.0-0.1); Basophils Percent Auto 0.8 % (0.2-1.2); Eosinophils Absolute Auto 0.7 K/mm3 (0-0.3); Eosinophils Percent Auto 5.8 % (0-4.4); Hematocrit 40.2 % (37.0-47.0); Hemoglobin 13.1 g/dL (12.0-15.0); Immature Granulocyte Absolute 0.05 K/mm3 (0.00-0.031); Immature Granulocyte Percent A 0.4 % (0-0.5); Lymphocytes Absolute Auto 2.93 K/mm3 (0.9-3.2); Mean Corpuscular HGB Conc 32.6 g/dl (32-36); Mean Corpuscular Hemoglobin 28.8 pg (26-34); Mean Corpuscular Volume 88.4 fl (80-100); Mean Platelet Volume 8.7 fl (7.4-10.4); Monocytes Absolute Auto 0.6 K/mm3 (0.1-0.6); Monocytes Percent Auto 4.9 % (2.6-8.5); Neutrophils Percent Auto 62.1 % (45.5-73.1); Platelet Count Result 274 k/mm3 (150-375); Red Blood Count 4.55 M/mm3 (4.2-5.4); Red Cell Distribution Width 14.4 % (11.5-14.5); White Blood Count 11.3 K/mm3 (4.5-10.0)
[2022-09-28 10:04] LABS: Anion Gap 3 mmol/L (8-16); Blood Urea Nitrogen 9 mg/dL (7-17); Calcium 8.2 mg/dL (8.4-10.2); Carbon Dioxide 27 mmol/L (22-30); Chloride 108 mmol/L (98-107); Estimated Glomerular Filt Rate > 60; Glucose 122 mg/dL (65-110); Potassium 3.9 mmol/L (3.4-5.0); Sodium 138 mmol/L (137-145)
[2022-09-28 11:06] VITALS: BP 108/71; PULSE 64; RESP 14; O2SAT 98
== END 2022-09-28 11:08 | disposition home or self-care (01) ==
PROVIDERS: Emergency Provider Physician Assistant; PCP Emergency Medicine
DX: R51.9 Headache, unspecified (principal); F17.210 Nicotine dependence, cigarettes, uncomplicated; M19.90 Unspecified osteoarthritis, unspecified site
CPT/HCPCS: 36415; 70496; 70498; 72125; 80048; 85025; 99284; Q9967

== ENCOUNTER 2022-09-28 11:25 | Outpatient (CLI) | payer OTHER, SELFPAY ==
--- NOTE | ~2022-09-28 | XR_ITS ---
Cervical Spine: AP and lateral views Clinical History: Pain Findings: The normal lordotic curve is maintained. The vertebral bodies and posterior elements appea r intact. The intervertebral disc spaces are well maintained. Pre-vertebral soft tissues are unremar kable. Impression: No significant abnormality is seen. Reviewed, dictated and finalized at [facility]. RANGE TECHNICIAN Impression: No significant abnormality is seen.
== END 2022-09-28 11:26 | disposition home or self-care (01) ==
PROVIDERS: PCP Emergency Medicine
DX: S19.9XXA Unspecified injury of neck, initial encounter (principal); X58.XXXA Exposure to other specified factors, initial encounter
CPT/HCPCS: 72040

== ENCOUNTER 2022-11-21 08:38 | Emergency (ER) | payer OTHER, SELFPAY ==
[2022-11-21 08:43] VITALS: BP 124/84; PULSE 80; RESP 18; TEMP 37.5; O2SAT 100
--- NOTE | 2022-11-21 09:41 | ED.DENTAL ---
HPI - Dental/Oral General Chief complaint: Dental/Oral Stated complaint: facial pain, toothache Time Seen by Provider: 11/21/22 08:58 Source: patient Mode of arrival: ambulatory Limitations: no limitations History of Present Illness HPI Narrative: Patient is a 42-year-old female who presents the ED with report of left-sided dental pain. Patient reports having left upper dental pain for the past 2 days. She does have known dental issues. She states the pain has been intermittent, but is very severe when it presents. Pain radiating to her lower left jaw, to her left facial cheek, into her left ear. She has been taking ibuprofen and Tylenol at home. She reports pain with chewing and talking, denies any difficulty breathing or swallowing, fevers, nausea, vomiting. Patient has an appointment with her dentist in early December. Related Data Allergies Allergy/AdvReac Type Severity Reaction Status Date / Time amoxicillin AdvReac Intermediate N&V/DROWSY Verified 04/27/22 11:01 meperidine AdvReac Intermediate REDNESS Verified 04/27/22 11:01 AND BURNING AT IV SITE WITH INJECTION Review of Systems Review of Systems: CONSTITUTIONAL: Denies fever, chills, or sweats. ENT: See HPI. CARDIOVASCULAR: Denies chest pain. RESPIRATORY: Denies dyspnea. GASTROINTESTINAL: Denies nausea, vomiting. All systems reviewed & are unremarkable except as noted in HPI and below PMFSH Past Medical History Medical History Ankle fracture, left Arthritis Back injury GI bleed HSV infection Injury of left hip Kidney infection Left hand fracture Right clavicle fracture Surgical History Surgical History H/O dilation and curettage Family History Family History Other Diabetes mellitus High cholesterol Hypertension Social History Social History Smoking status: Heavy tobacco smoker Tobacco type: cigarettes Second hand tobacco smoke exposure: Yes Substance use: current Gender identity (if verbalized by the patient): Female Sexual Orientation (if Verbalized by the Patient): Straight or Heterosexual Spiritual care concerns: No Exam Narrative: GENERAL: Uncomfortable appearing, well-nourished, non-toxic, in no acute distress. HEAD: Normocephalic, atraumatic. EYES: PERRLA/EOMI, conjunctiva clear. ENT: Diffuse dental decay and scattered dental caries. Dental shwetha present at tooth #15, left upper posterior molar. Tenderness along inner and outer gumline surrounding tooth, mild erythema noted. No focal swelling or signs of abscess. No fluctuance appreciated. No significant localized tenderness along left lower gumline. L ear exam with some cerumen noted to L EAC, no signs of cerumen impaction, no signs of TM erythema, bulging, perforation. Patient tolerating secretions. No posterior pharynx erythema. No tonsillar hypertrophy or exudate. Uvula midline. NECK: Supple. No adenopathy, no masses. RESPIRATORY: Airway patent, respirations nonlabored. CARDIOVASCULAR: Regular rate and rhythm without murmurs, rubs, or gallops. Radial pulses 2+ and equal bilaterally. MUSCULOSKELETAL: Moves all extremities. Strength/ROM intact without gross deformities. SKIN: Warm, dry, normal color. No rashes. NEURO: A&O X3. Speech clear. Cranial nerves II-XII grossly intact. Steady gait. No ataxic movements. PSYCHIATRIC: Anxious, tearful. Normal interaction. HENMT: Teeth image: 1. dental caries, tenderness surrounding tooth Course Vital Signs Vital signs: Vital Signs Temperature 99.5 F 11/21/22 08:43 Pulse Rate 80 11/21/22 08:43 Respiratory Rate 18 11/21/22 08:43 Blood Pressure 124/84 11/21/22 08:43 Pulse Oximetry 100 11/21/22 08:43 Temperature 99.5 F 11/21/22 0
[2022-11-21 10:07] VITALS: BP 124/76; PULSE 86; RESP 14; O2SAT 97
== END 2022-11-21 10:08 | disposition home or self-care (01) ==
LOC: ANHED 09:54
PROVIDERS: Emergency Provider Physician Assistant; PCP Emergency Medicine
DX: K02.9 Dental caries, unspecified (principal); M19.90 Unspecified osteoarthritis, unspecified site; F17.210 Nicotine dependence, cigarettes, uncomplicated
CPT/HCPCS: 99283

== ENCOUNTER 2022-12-02 14:31 | Outpatient (CLI) | payer OTHER, SELFPAY ==
--- NOTE | ~2022-12-02 | XR_ITS ---
XR chest 2V 12/02/2022 14:55 Indication: Pain between the shoulders. Tobacco use. Procedure: 2 view chest Comparison: 12/08/2021 Findings: there is lingular atelectasis. Heart size normal. No focal pneumonia, pleural effusion or p neumothorax. Impression: 1: Lingular atelectasis. Reviewed, dictated and finalized at location L. ITAL WARD CLERK Impression: 1: Lingular atelectasis.
--- NOTE | ~2022-12-02 | XR_ITS ---
XR foot RT min 3V 12/02/2022 14:56 INDICATION: Right lateral foot pain. PROCEDURE: 4 views right foot COMPARISON: No prior studies for comparison. FINDINGS: Fracture, dislocation or subluxation is not identified. There is a corticated ossific densi ty lateral to the navicular, likely representing an old avulsion fracture. No acute fracture, subluxa tion or dislocation. Lisfranc joint intact. The soft tissues appear within normal limits. No foreign bodies are identified. IMPRESSION: 1: NO ACUTE BONE OR JOINT ABNORMALITY IDENTIFIED. Reviewed, dictated and finalized at location L. HANDISING SPECIALIST
== END 2022-12-02 14:32 | disposition home or self-care (01) ==
PROVIDERS: PCP Emergency Medicine; Visit Provider Emergency Medicine
DX: S99.921A Unspecified injury of right foot, initial encounter (principal); X58.XXXA Exposure to other specified factors, initial encounter; Z72.0 Tobacco use; J98.11 Atelectasis
CPT/HCPCS: 71046; 73630

== ENCOUNTER 2022-12-16 13:42 | Observation (INO) | payer OTHER, SELFPAY ==
[2022-12-16 13:48] VITALS: BP 112/94; PULSE 132; RESP 28; TEMP 36.7; O2SAT 100
[2022-12-16 14:13] LABS: Basophils Absolute Auto 0.1 K/mm3 (0.0-0.1); Basophils Percent Auto 0.6 % (0.2-1.2); Hematocrit 43.6 % (37.0-47.0); Hemoglobin 15.6 g/dL (12.0-15.0); Immature Granulocyte Absolute 0.07 K/mm3 (0.00-0.031); Immature Granulocyte Percent A 0.7 % (0-0.5); Lymphocytes Absolute Auto 0.54 K/mm3 (0.9-3.2); Lymphocytes Percent Auto 5.7 % (18.3-44.2); Mean Corpuscular HGB Conc 35.8 g/dl (32-36); Mean Corpuscular Hemoglobin 29.1 pg (26-34); Mean Corpuscular Volume 81.2 fl (80-100); Mean Platelet Volume 9.3 fl (7.4-10.4); Monocytes Absolute Auto 0.7 K/mm3 (0.1-0.6); Monocytes Percent Auto 6.9 % (2.6-8.5); Neutrophils Absolute Auto 8.1 K/mm3 (1.3-6.7); Neutrophils Percent Auto 86.1 % (45.5-73.1); Platelet Count Result 299 k/mm3 (150-375); Red Blood Count 5.37 M/mm3 (4.2-5.4); Red Cell Distribution Width 14.3 % (11.5-14.5); White Blood Count 9.4 K/mm3 (4.5-10.0)
[2022-12-16] MEDS: SODIUM CHLORIDE 0.9% IV 1,000 ML 999 ML IV CONT ×2 (14:15→15:03)
[2022-12-16] MEDS: ONDANSETRON INJ 4 MG/2 ML VIAL IV PUSH (14:15)
[2022-12-16 14:30] LABS: Alanine Aminotransferase 28 U/L (6-35); Albumin Level 5.2 g/dL (3.5-5.1); Alkaline Phosphatase 96 U/L (38-126); Anion Gap 16 mmol/L (8-16); Aspartate Amino Transferase 38 U/L (14-36); Bilirubin,Total 0.5 mg/dL (0.2-1.3); Blood Urea Nitrogen 31 mg/dL (7-17); Carbon Dioxide 15 mmol/L (22-30); Chloride 100 mmol/L (98-107); Estimated CRCL calculation 37 ml/min; Estimated Glomerular Filt Rate 31; Glucose 180 mg/dL (65-110); Lipase 67 U/L (23-300); Potassium 3.6 mmol/L (3.4-5.0); Sodium 131 mmol/L (137-145)
[2022-12-16 14:56] LABS: Appearance Urine Cloudy (Clear); Bacteria Urine 3+ /hpf; Bilirubin Urine Negative (Negative); Blood Urine Negative (Negative); Color Urine Yellow (Yellow); Glucose Urine UA Negative (Negative); Hyaline Casts Urine Present /lpf; Ketones Urine Trace mg/dL (Negative); Leukocyte Esterase Ur 1+ LEU/UL (Negative); Mucus Urine Present /lpf; Nitrate Urine Negative (Negative); Non Pathogenic Casts >20; Protein Urine 2+ mg/dL (Negative); Specific Grav Ur 1.026 (1.001-1.035); Squamous Epithelial Cell Urine Many /hpf (Few); Urobilinogen Urine 0.2 mg/dL (<2.0)
[2022-12-16 15:05] LABS: Add Urine Microscopic? YES
[2022-12-16 17:18] LABS: Toxigenic C. Diff POSITIVE (NEGATIVE)
--- NOTE | 2022-12-16 17:25 | ED.NAVMDI ---
HPI - Nausea/Vomiting/Diarrhea General Chief complaint: Nausea/Vomiting/Diarrhea Stated complaint: vomiting Time Seen by Provider: 12/16/22 13:54 History of Present Illness HPI Narrative: Patient is a 42-year-old female who presents to the ER with nausea/vomiting/diarrhea. Ongoing over the last 24 hours. She reports she has a bowel movement every hour. She recently finished clindamycin 2 weeks ago. She also reports that her child had a GI illness over the weekend and she thought that she had just cut that back. No fevers or chills. No abdominal pain. No alleviating factors. Related Data Allergies Allergy/AdvReac Type Severity Reaction Status Date / Time amoxicillin AdvReac Intermediate N&V/DROWSY Verified 12/16/22 14:17 meperidine AdvReac Intermediate REDNESS Verified 12/16/22 14:17 AND BURNING AT IV SITE WITH INJECTION Review of Systems Review of Systems: All systems reviewed & are unremarkable except as noted in HPI and below Constitutional: Constitutional: Denies chills and Denies fever(s) ENT: Denies nasal congestion and Denies sore throat Cardiovascular: Cardiovascular: Denies chest pain, Denies rapid heart rate and Denies radiating jaw, neck or arm pain Respiratory: Respiratory: Denies cough and Denies dyspnea Gastrointestinal: Gastrointestinal: Denies abdominal pain, Reports diarrhea, Reports nausea and Reports vomiting PMFSH Past Medical History Medical History Ankle fracture, left Arthritis Back injury GI bleed HSV infection Injury of left hip Kidney infection Left hand fracture Right clavicle fracture Surgical History Surgical History H/O dilation and curettage Family History Family History Other Diabetes mellitus High cholesterol Hypertension Social History Social History Smoking status: Heavy tobacco smoker Tobacco type: cigarettes Second hand tobacco smoke exposure: Yes Substance use: current Gender identity (if verbalized by the patient): Female Sexual Orientation (if Verbalized by the Patient): Straight or Heterosexual Spiritual care concerns: No Exam Narrative: GENERAL: Well-appearing, well-nourished, and in no acute distress. HEAD: Normocephalic, atraumatic. ENT: Mucous membranes moist. NECK: Supple. CHEST: Clear to auscultation. No respiratory distress. HEART: Tachycardic and regular. Normal peripheral pulses. ABDOMEN: Soft, nontender, nondistended. EXTREMITIES: Normal range of motion. No edema. SKIN: Warm, dry, no rash. NEURO: Alert and oriented x3. PSYCH: Normal mood and affect. Course Course Emergency Course: Patient informed of results and need for admission. Patient will receive additional hydration for her [place]. Oral vancomycin for C. difficile. Accepted by the hospitalist service. Vital Signs Vital signs: Vital Signs Temperature 98.1 F 12/16/22 13:48 Pulse Rate 132 H 12/16/22 13:48 Respiratory Rate 28 H 12/16/22 13:48 Blood Pressure 112/94 H 12/16/22 13:48 Pulse Oximetry 100 12/16/22 13:48 Oxygen Delivery Room Air 12/16/22 13:48 Temperature 98.1 F 12/16/22 13:48 Pulse Rate 132 H 12/16/22 13:48 Respiratory Rate 28 H 12/16/22 13:48 Blood Pressure 112/94 H 12/16/22 13:48 Pulse Oximetry 100 12/16/22 13:48 Oxygen Delivery Room Air 12/16/22 13:48 MDM - Nausea/Vomiting/Diarrhea Lab Data 12/16/22 14:07 12/16/22 14:07 Labs: Lab Results 12/16/22 12/16/22 12/16/22 Range/Units 14:07 14:07 14:14 WBC 9.4 (4.5-10.0) K/mm3 RBC 5.37 (4.2-5.4) M/mm3 Hgb 15.6 H (12.0-15.0) g/dL Hct 43.6 (37.0-47.0) % MCV 81.2 (80-100) fl MCH 29.1 (26-34) pg MCHC 35.8 (32-36) g/dl RDW 14.
[2022-12-16] MEDS: SODIUM CHLORIDE 0.9% IV 1,000 ML 125 ML IV CONT (18:19)
[2022-12-16] MEDS: VANCOMYCIN ORAL 125 MG/2.5 ML SYRUP PO ×2 (18:20→23:52)
[2022-12-16] MEDS: ACETAMINOPHEN 325 MG TABLET 650 MG PO (18:22)
[2022-12-16 18:25] VITALS: BP 124/76; PULSE 92; RESP 16; O2SAT 100
--- NOTE | 2022-12-16 21:00 | PM.IMHP ---
H&P: HPI History of Present Illness Date/Time: 12/16/22 21:00 Chief Complaint: Nausea vomiting diarrhea Narrative: This is a 42-year-old female patient has been having nausea vomiting and diarrhea over the last 24 hours. The patient has had a bowel movement every hour. The patient recently finished up clindamycin approximately 2 weeks ago. The patient stated that her son had a GI illness over the weekend and she thought that she just had a GI bug. No abdominal pain at this time. No fever chills. No vomiting. Her white count is within normal limits. Sodium is low at 131. Creatinine 1.8 with a normal baseline. GFR is 31. Glucose 180. Urine appears to be infectious. The patient was given IV fluids, Zofran, oral vancomycin, Rocephin and Protonix. The patient was positive for C diff. the patient is being admitted to observation status on the date of service of 12/16/2022 Review of Systems Review of Systems: All systems reviewed & are unremarkable except as noted in HPI and below Constitutional: Constitutional: Reports as per HPI and Reports no additional constitutional complaints Eyes: Eyes: Reports as per HPI and Reports no additional eye complaints ENT: Reports system reviewed and no additional complaints, except as documented and Reports Normal hearing present Cardiovascular: Cardiovascular: Reports no additional cardiovascular complaints Respiratory: Respiratory: Reports no additional respiratory complaints and Reports no additional respiratory complaints Gastrointestinal: Gastrointestinal: Reports as per HPI and Reports no additional gastrointestinal complaints Musculoskeletal: Musculoskeletal: Reports no additional musculoskeletal complaints Integumentary/Breasts: Skin/Breast: Reports system reviewed and no additional complaints, except as docu and Reports as per HPI Neurologic: Reports system reviewed and no additional complaints, except as documented, Reports as per HPI and Reports Normal hearing present Psychiatric: Psychiatric: Reports no additional psychiatric complaints and Reports as per HPI Endocrine: Endocrine: Reports no additional endocrine complaints Hematologic/Lymphatic: Hematologic/Lymphatic: Reports no additional hematologic/lymphatic complaints Allergic/Immunologic: Allergic/Immunologic: Reports no additional allergic/immunologic complaints [facility] Past Medical History Medical History (Updated 12/17/22 @ 00:06 by Zeenat Coats NP) Ankle fracture, left Anxiety Arthritis Back injury GI bleed HSV infection Injury of left hip Kidney infection Left hand fracture Right clavicle fracture Surgical History Surgical History (Updated 12/16/22 @ 21:02 by Zeenat Coats NP) H/O dilation and curettage H/O laparoscopy H/O: hemorrhoidectomy S/P LEEP Family History Family History Other Diabetes mellitus High cholesterol Hypertension Social History Social History (Updated 12/17/22 @ 00:03 by Zeenat Coats NP) Social History: She continues to smoke 1 pack a cigarettes a day. She lives with her boyfriend and has 3 children. She is not interested in smoking cessation Code status full code Smoking status: Current every day smoker Tobacco type: cigarettes Second hand tobacco smoke exposure: Yes Alcohol intake: never Substance use: current Substance use type: marijuana Lack of Transportation: No Lack of Food: Never True Current Housing: I Have Housing Concerned About Future Housing: No Difficulty Paying Gas/Electric Bills: No Difficulty Paying for Meds: No Currently Unemployed: No Education: Associate Degree Difficulty w/ Childcare or Family Care: No Gender identity (if verbalized by the patient): Female Sexual Orientation (if Verbalized by the Patient): Straight or Heterosexual Spiritual care concerns: No Meds Home Medications and Allergies Home Medications
[2022-12-16 22:50] VITALS: BP 107/61; PULSE 88; RESP 14; TEMP 36.5; O2SAT 98; BMI 30.1
[2022-12-16 23:30] VITALS: O2SAT 98
[2022-12-16] MEDS: PANTOPRAZOLE SODIUM IV 40 MG VIAL IV PUSH (23:49)
[2022-12-17] MEDS: ONDANSETRON INJ 4 MG/2 ML VIAL IV PUSH ×3 (02:31→16:24)
[2022-12-17] MEDS: SODIUM CHLORIDE 0.9% IV 1,000 ML 125 ML IV CONT (02:31)
[2022-12-17] MEDS: VANCOMYCIN ORAL 125 MG/2.5 ML SYRUP PO ×3 (05:28→17:52)
[2022-12-17 06:00] VITALS: BP 100/68; PULSE 86; RESP 14; TEMP 37.2; O2SAT 98
[2022-12-17 06:42] LABS: Lactic Acid Reflex 0.6 mmol/L (0.7-2.0)
[2022-12-17 07:00] LABS: Alanine Aminotransferase 21 U/L (6-35); Albumin Level 3.5 g/dL (3.5-5.1); Alkaline Phosphatase 59 U/L (38-126); Anion Gap 4 mmol/L (8-16); Aspartate Amino Transferase 37 U/L (14-36); Bilirubin,Total 0.3 mg/dL (0.2-1.3); Blood Urea Nitrogen 13 mg/dL (7-17); Carbon Dioxide 19 mmol/L (22-30); Chloride 107 mmol/L (98-107); Estimated CRCL calculation 80 ml/min; Estimated Glomerular Filt Rate > 60; Glucose 86 mg/dL (65-110); Magnesium 1.8 mg/dL (1.6-2.3); Potassium 3.4 mmol/L (3.4-5.0); Sodium 130 mmol/L (137-145)
[2022-12-17 07:28] LABS: Basophils Absolute Auto 0.1 K/mm3 (0.0-0.1); Basophils Percent Auto 0.9 % (0.2-1.2); Eosinophils Absolute Auto 0.1 K/mm3 (0-0.3); Eosinophils Percent Auto 1.9 % (0-4.4); Hematocrit 33.5 % (37.0-47.0); Hemoglobin 11.4 g/dL (12.0-15.0); Immature Granulocyte Absolute 0.03 K/mm3 (0.00-0.031); Immature Granulocyte Percent A 0.5 % (0-0.5); Lymphocytes Absolute Auto 1.34 K/mm3 (0.9-3.2); Lymphocytes Percent Auto 23.5 % (18.3-44.2); Mean Corpuscular Hemoglobin 28.4 pg (26-34); Mean Corpuscular Volume 83.3 fl (80-100); Mean Platelet Volume 9.3 fl (7.4-10.4); Monocytes Absolute Auto 0.8 K/mm3 (0.1-0.6); Monocytes Percent Auto 13.2 % (2.6-8.5); Neutrophils Absolute Auto 3.4 K/mm3 (1.3-6.7); Platelet Count Result 215 k/mm3 (150-375); Red Blood Count 4.02 M/mm3 (4.2-5.4); Red Cell Distribution Width 14.6 % (11.5-14.5); White Blood Count 5.7 K/mm3 (4.5-10.0)
[2022-12-17] MEDS: SACCHAROMYCES BOULARDII 250 MG CAPSULE PO ×3 (08:26→17:52)
[2022-12-17] MEDS: PANTOPRAZOLE SODIUM IV 40 MG VIAL IV PUSH ×2 (08:27→20:18)
--- NOTE | 2022-12-17 10:11 | PM.IMPN ---
Progress Note: A&P Assessment and Plan (1) C. difficile colitis: Code(s): A04.72 - Enterocolitis due to Clostridium difficile, not specified as recurrent Status: Acute Assessment and Plan: Patient was recently on clindamycin for a tooth infection and subsequently developed diarrhea. C diff PCR was positive. She was started on oral vancomycin. She was given IV fluids. White count remains normal. Renal function has normalized. Her metabolic non gap acidosis felt related to the diarrhea and this is improving. Continue oral vancomycin. Home tomorrow if her stool output remains low. (2) GROVER (acute kidney injury): Code(s): N17.9 - Acute kidney failure, unspecified Status: Acute Assessment and Plan: Her creatinine is 1.8 with a GFR of 37 on admission. [place] to be prerenal azotemia related to her dehydration with the diarrhea. With IV fluids, her Cr has normalized. Continue to monitor (3) UTI (urinary tract infection): Code(s): N39.0 - Urinary tract infection, site not specified Status: Acute Assessment and Plan: UA noted. The patient was started on Rocephin. Blood and urine cultures are pending. Narrow abx when able. (4) Metabolic acidosis: Code(s): E87.20 - Acidosis, unspecified Status: Acute Assessment and Plan: Non gap metabolic acidosis present on admission related to the diarrhea. Better with IV fluids. Follow (5) Nausea & vomiting: Code(s): R11.2 - Nausea with vomiting, unspecified Status: Acute Assessment and Plan: Resolved. related to above. (6) Hyponatremia: Code(s): E87.1 - Hypo-osmolality and hyponatremia Status: Acute Assessment and Plan: Na 131 on admission. Na unchanged today. [place] related to dehydration. Will follow. Plan Hyperglycemia - present on admission. Better now. Check A1c. Anemia - Hgb dropped from 15 to 11. No evidence of acute blood loss. Probably related to hemodilution. Subjective Date/time seen: 12/17/22 10:11 Interval history: 42yo female recently on clindamycin for a tooth infection here for diarrea and found to have CDiff Feels much better. Still having lose stools and has had 3 today so far. No CP or SOB. No abd pain. Son feels much better and no longer having symptoms. No dysuria or hematuria. Exam Narrative: AF 99.0 100/68 86 14 98% ra Gen - NARD Chest - CTA bilaterally, nml RR CV - RRR S1/S2 Abd - Soft, NT/ND, Positive BS Ext - No pedal edema Psych - Nml mood and affect Skin - Warm and dry Objective Data Vital Signs Vital Signs: Vital Signs - 24 hr 12/16/22 13:48 12/16/22 18:25 12/16/22 22:52 Temperature 98.1 F Pulse Rate 132 H 92 Respiratory Rate 28 H 16 Blood Pressure 112/94 H 124/76 Pulse Oximetry 100 100 Oxygen Delivery Room Air Room Air 12/16/22 22:50 12/16/22 23:30 12/17/22 06:00 Temperature 97.7 F 99.0 F Pulse Rate 88 86 Respiratory Rate 14 14 Blood Pressure 107/61 100/68 Pulse Oximetry 98 98 98 Oxygen Delivery Room Air Intake/Output Intake/Output: Intake & Output 12/14/22 12/15/22 12/16/22 12/17/22 23:59 23:59 23:59 23:59 Intake Total 1999 1750 Output Total 600 Balance 1999 1150 Meds/Results Medications: Active Medications Generic Name Dose Route Start Last Admin Trade Name Freq PRN Reason Stop Dose Admin Acetaminophen 650 mg 12/16/22 17:31 12/16/22 18:22 Acetaminophen 325 Mg Tablet PO 650 mg Q4H PRN Administration Mild Pain (1-3) or Fever Hydrocodone Bitart/Acetaminophen 1 tab 12/16/22 17:31 Hydrocodone/Acetaminophen (*Crx) 5-325 Mg Tablet PO Q4H PRN Pain Rated 4-6 Sodium Chloride 1,000 mls @ 125 mls/hr 12/16/22 17:35 12/17/22 02:31 Normal Saline Iv IV CONT 125 mls/hr .Q8H ROBERT Administration Ceftriaxone Sodium 1 gm in 50 mls @ 100 mls/hr 12/17/22 21:00 Rocephin 1 Gm/Ns 50 Ml IVPB Q24H ROBERT Morphine Sulf
[2022-12-17] MEDS: SODIUM CHLORIDE 0.9% IV 1,000 ML 70 ML IV CONT (10:37)
[2022-12-17 14:00] VITALS: BP 110/64; PULSE 70; RESP 18; TEMP 36.4; O2SAT 99
[2022-12-17 22:00] VITALS: BP 111/77; PULSE 74; RESP 20; TEMP 36.6; O2SAT 100
[2022-12-18] MEDS: VANCOMYCIN ORAL 125 MG/2.5 ML SYRUP PO ×3 (00:21→11:46)
[2022-12-18] MEDS: SODIUM CHLORIDE 0.9% IV 1,000 ML 70 ML IV CONT (04:40)
[2022-12-18] MEDS: ONDANSETRON INJ 4 MG/2 ML VIAL IV PUSH ×2 (04:41→08:36)
[2022-12-18 06:00] VITALS: BP 100/55; PULSE 72; RESP 18; TEMP 36.6; O2SAT 100
[2022-12-18 06:37] LABS: Hematocrit 36.8 % (37.0-47.0); Hemoglobin 11.9 g/dL (12.0-15.0); Mean Corpuscular HGB Conc 32.3 g/dl (32-36); Mean Corpuscular Hemoglobin 28.2 pg (26-34); Mean Corpuscular Volume 87.2 fl (80-100); Mean Platelet Volume 9.8 fl (7.4-10.4); Platelet Count Result 205 k/mm3 (150-375); Red Blood Count 4.22 M/mm3 (4.2-5.4); Red Cell Distribution Width 14.4 % (11.5-14.5); White Blood Count 3.7 K/mm3 (4.5-10.0)
[2022-12-18 06:52] LABS: Anion Gap 6 mmol/L (8-16); Blood Urea Nitrogen 7 mg/dL (7-17); Calcium 7.4 mg/dL (8.4-10.2); Carbon Dioxide 18 mmol/L (22-30); Chloride 111 mmol/L (98-107); Estimated CRCL calculation 91 ml/min; Estimated Glomerular Filt Rate > 60; Glucose 76 mg/dL (65-110); Potassium 3.4 mmol/L (3.4-5.0); Sodium 135 mmol/L (137-145)
[2022-12-18 07:03] LABS: Hemoglobin A1C 5.4 % (<5.7)
[2022-12-18] MEDS: SACCHAROMYCES BOULARDII 250 MG CAPSULE PO ×2 (08:32→11:46)
[2022-12-18 14:00] VITALS: BP 103/67; PULSE 60; RESP 20; TEMP 36.2; O2SAT 100
--- NOTE | 2022-12-18 14:39 | PM.DS ---
DS: Admitting Diagnosis Discharge Date 12/18/22 Admitting Diagnosis Diarrhea DS: Discharge Diagnosis Discharge Diagnosis (1) C. difficile colitis: Code(s): A04.72 - Enterocolitis due to Clostridium difficile, not specified as recurrent Status: Acute (2) GROVER (acute kidney injury): Code(s): N17.9 - Acute kidney failure, unspecified Status: Acute (3) UTI (urinary tract infection): Code(s): N39.0 - Urinary tract infection, site not specified Status: Acute (4) Metabolic acidosis: Code(s): E87.20 - Acidosis, unspecified Status: Acute (5) Nausea & vomiting: Code(s): R11.2 - Nausea with vomiting, unspecified Status: Acute (6) Hyponatremia: Code(s): E87.1 - Hypo-osmolality and hyponatremia Status: Acute DS: Summary Hospital Course Reason for hospitalization: 42yo female recently on clindamycin for a tooth infection here for diarrea and found to have CDiff. Please see H&P for details. Hospital Course: Patient was recently on clindamycin for a tooth infection. She subsequently developed diarrhea and presented to ED for this reason.?She was also having nausea and vomiting. C diff PCR was positive.? She was started on oral vancomycin.? She was given IV fluids.? White count normal and actually dropped to 3700.?She may have had an underlying viral gastroenteritis. Her creatinine is 1.8 with a GFR of 37 on admission. [place] to be prerenal azotemia related to her dehydration with the diarrhea. With IV fluids, her Cr has normalized. Her metabolic non gap acidosis felt related to the diarrhea.? UA noted. The patient was started on Rocephin. Blood cultures are NGTD. Urine culture negative. Rocephin stopped. Her nausea & vomiting resolved. Na 131 on admission. Na improved to 135 with rehydration. Hyperglycemia noted on admission. Better now. A1c 5.4. Hgb dropped from 15 to 11. No evidence of acute blood loss. Probably related to hemodilution. Repeat Hgb 12. Her diarrhea slowed. She was eating and toelrating this well. She feels well and feels comfortable with discharge plan. She overall did well and was discharged home on 12/18/22 Status at Discharge Cognitive/behavioral status at discharge: Stable Time Spent with Patient Time attestation: Total time spent providing and/or coordinating discharge services: 32 minutes Time spent: Greater than 30 minutes Exam Narrative: AF 97.2 103/7 60 20 100% ra Gen - NARD Chest - CTA bilaterally, nml RR CV - RRR S1/S2 Abd - Soft, NT/ND, Positive BS Ext - No pedal edema Psych - Nml mood and affect Skin - Warm and dry DS: Data Data Completed and Pending Labs on day of discharge: Labs from last 24 hours 12/18/22 12/18/22 12/18/22 05:40 05:40 05:39 WBC 3.7 L RBC 4.22 Hgb 11.9 L Hct 36.8 L MCV 87.2 MCH 28.2 MCHC 32.3 RDW 14.4 Plt Count 205 MPV 9.8 Sodium 135 L Potassium 3.4 Chloride 111 H Carbon Dioxide 18 L Anion Gap 6 L BUN 7 D Creatinine 0.70 Estim Creat Clear Calc 91 Estimated GFR > 60 Glucose 76 Hemoglobin A1c 5.4 Calcium 7.4 L Preliminary micro results at discharge 12/17/22 06:07 Blood Culture - Preliminary Blood 12/17/22 06:07 Blood Culture - Preliminary Blood Discharge Plan Discharge Attending physician on discharge: Ian Quintana Discharging Clinician: Ian Quintana Anticipated Discharge Date/Time: 12/18/22 14:48 Patient Disposition: Home, Self-Care Activity: as tolerated Diet: regular Discharge Instructions: Please complete your antibiotic course even if you are starting to feel well. Contact your doctor or call 911 and come to the Emergency Room if you have recurrent diarrhea or other worrisome symptoms. Follow-up with your primary care provider in 1-2 weeks. Please call for appointment. Thank you for using [facility] for your health care needs. Patient I
--- NOTE | 2022-12-19 11:00 | PC.NURSE ---
Patient called to clarify medication that was transmitted. Medications were not received per patient. This nurse clarified medication with Emmanuel Hung
== END 2022-12-18 13:10 | disposition home or self-care (01) ==
LOC: ANHED 17:27 → ANH3MEDSUR 23:02
PROVIDERS: Nurse Practitioner; Admitting Provider Internal Medicine; Emergency Provider Emergency Medicine; PCP Emergency Medicine; Visit Provider Internal Medicine
DX: A04.72 Enterocolitis due to Clostridium difficile, not specified as recurrent (principal); N17.9 Acute kidney failure, unspecified; N39.0 Urinary tract infection, site not specified; E87.20 Acidosis, unspecified; E87.1 Hypo-osmolality and hyponatremia; R00.0 Tachycardia, unspecified; F41.9 Anxiety disorder, unspecified; M19.90 Unspecified osteoarthritis, unspecified site; F17.210 Nicotine dependence, cigarettes, uncomplicated; F12.90 Cannabis use, unspecified, uncomplicated; Z79.1 Long term (current) use of non-steroidal anti-inflammatories (NSAID)
CPT/HCPCS: 36415; 80048; 80053; 81001; 81025; 83036; 83605; 83690; 83735; 84443; 85025; 85027; 87040; 87086; 87088; 87493; 96361; 96374; 96375; 96376; 99285; A9270; C9113; G0378; G0379; J0696; J2405; J7030

== ENCOUNTER 2023-01-13 09:02 | Outpatient (CLI) | payer OTHER, SELFPAY ==
[2023-01-13 10:22] LABS: Hematocrit 38.9 % (37.0-47.0); Hemoglobin 12.7 g/dL (12.0-15.0); Mean Corpuscular HGB Conc 32.6 g/dl (32-36); Mean Corpuscular Hemoglobin 28.1 pg (26-34); Mean Corpuscular Volume 86.1 fl (80-100); Mean Platelet Volume 9.3 fl (7.4-10.4); Platelet Count Result 266 k/mm3 (150-375); Red Blood Count 4.52 M/mm3 (4.2-5.4); Red Cell Distribution Width 14.6 % (11.5-14.5); White Blood Count 5.6 K/mm3 (4.5-10.0)
[2023-01-13 10:41] LABS: Alanine Aminotransferase 18 U/L (6-35); Albumin Level 4.1 g/dL (3.5-5.1); Alkaline Phosphatase 69 U/L (38-126); Anion Gap 7 mmol/L (8-16); Aspartate Amino Transferase 26 U/L (14-36); Bilirubin,Total 0.4 mg/dL (0.2-1.3); Blood Urea Nitrogen 8 mg/dL (7-17); Calcium 8.4 mg/dL (8.4-10.2); Carbon Dioxide 25 mmol/L (22-30); Chloride 106 mmol/L (98-107); Cholesterol 194 mg/dL (0-200); Estimated Glomerular Filt Rate > 60; Glucose 91 mg/dL (65-110); HDL Direct 31 mg/dL; Potassium 3.8 mmol/L (3.4-5.0); Sodium 138 mmol/L (137-145); Triglycerides 106 mg/dL (<150)
[2023-01-13 10:54] LABS: LDL Cholesterol Direct 127 mg/dL
[2023-01-13 11:12] LABS: Thyroid Stimulating Hormone 0.973 uIU/mL (0.465-4.680)
[2023-01-13 11:13] LABS: Free T4 Free Thyroxine 1.18 ng/mL (0.78-2.19); Vitamin D 25 Hydroxy 41.8 ng/mL
[2023-01-13 11:19] LABS: Microalbumin Urine Random 10.3 mg/L (0-16.7)
[2023-01-13 11:40] LABS: Creatinine Urine 392.6 mg/dL; MALB Creatinine Ratio 2.6 mg/g (0-30)
[2023-01-13 11:52] LABS: Hemoglobin A1C 5.5 % (<5.7)
[2023-01-14 11:32] LABS: Appearance Urine Slightly Cloudy (Clear); Bilirubin Urine 1+ (Negative); Blood Urine Negative (Negative); Color Urine Yellow (Yellow); Glucose Urine UA Negative (Negative); Ketones Urine Negative (Negative); Leukocyte Esterase Ur Negative LEU/UL (NEGATIVE); Nitrate Urine Negative (Negative); Protein Urine 1+ mg/dL (Negative); Specific Grav Ur >= 1.030 (1.001-1.035); Urobilinogen Urine 0.2 mg/dL (<2.0); pH Urine 5.5 (5.0-9.0)
[2023-01-14 11:41] LABS: Bacteria Urine 4+ /hpf; Non Pathogenic Casts 0-2; Squamous Epithelial Cell Urine Many /hpf (Few); WBC Urine 0-5 /hpf (0-3)
[2023-01-14 11:45] LABS: Add Urine Microscopic? YES
== END 2023-01-13 09:03 | disposition home or self-care (01) ==
LOC: ANHLAB 09:04
PROVIDERS: PCP Emergency Medicine; Visit Provider Emergency Medicine
DX: M54.2 Cervicalgia (principal); H53.8 Other visual disturbances; F43.10 Post-traumatic stress disorder, unspecified; F41.9 Anxiety disorder, unspecified; F32.A Depression, unspecified
CPT/HCPCS: 36415; 80053; 80061; 81001; 82043; 82306; 83036; 84439; 84443; 85027

== ENCOUNTER 2023-06-27 09:00 | Outpatient (CLI) | payer OTHER, SELFPAY ==
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
--- NOTE | ~2023-06-27 | XR_ITS ---
EXAMINATION: XR lumbar spine 2-3V DATE: 06/27/2023 09:34 INDICATION: Low back pain. TECHNIQUE: 3 views of lumbar spine were obtained. COMPARISON: None. FINDINGS: There is 7 degrees dextrocurvature of thoracolumbar spine. Vertebral body heights are bree l. Intervertebral disc heights are normal. The facet joints are unremarkable. IMPRESSION: 1. No etiology for the patient's symptoms. Reviewed, dictated and finalized at location A.
--- NOTE | ~2023-06-27 | XR_ITS ---
EXAMINATION: XR cervical spine 4-5V DATE: 06/27/2023 09:34 INDICATION: Right arm paresthesias. TECHNIQUE: 4 views of cervical spine were obtained. COMPARISON: Cervical spine radiographs 09/28/2022 FINDINGS: There is 3 degrees dextrocurvature of cervical spine. Vertebral body heights and interverte bral disc heights are normal. There is moderate left facet joint osteoarthritis at C3-C4. No central canal stenosis or prevertebral soft tissue swelling. IMPRESSION: 1. Moderate left facet joint osteoarthritis at C3-C4. Reviewed, dictated and finalized at location A.
[2023-06-27 11:03] LABS: Rheumatoid Factor < 12.0 IU/ML (<12)
[2023-06-27 11:11] LABS: Appearance Urine Cloudy (Clear); Bacteria Urine 1+ /hpf; Bilirubin Urine Negative (Negative); Blood Urine Negative (Negative); Color Urine Yellow (Yellow); Glucose Urine UA Negative (Negative); Ketones Urine Negative (Negative); Leukocyte Esterase Ur Trace LEU/UL (NEGATIVE); Nitrate Urine Negative (Negative); Non Pathogenic Casts 0-2; Protein Urine Negative (Negative); RBC Urine 0-2 /hpf (0-2); Specific Grav Ur 1.022 (1.001-1.035); Squamous Epithelial Cell Urine Many /hpf (Few)
[2023-06-27 11:14] LABS: Erythrocyte Sedimentation Rate 17 mm/hr (0-20)
[2023-06-27 11:17] LABS: Add Urine Microscopic? YES
[2023-06-29 23:46] LABS: H pylori, Urea Breath NOT DETECTED (NOT DETECTED)
== END 2023-06-27 09:01 | disposition home or self-care (01) ==
PROVIDERS: PCP Emergency Medicine; Visit Provider Emergency Medicine
DX: M79.601 Pain in right arm (principal); R12 Heartburn; R20.2 Paresthesia of skin; M50.30 Other cervical disc degeneration, unspecified cervical region
CPT/HCPCS: 36415; 72050; 72100; 73030; 81001; 83013; 85652; 86430

== ENCOUNTER 2023-10-25 10:44 | Outpatient (CLI) | payer OTHER, SELFPAY ==
--- NOTE | ~2023-10-25 | MMUS_ITS ---
EXAMINATION: MM diagnostic skye BI w corrine, US breast LT limited HISTORY: Left nipple discharge TECHNIQUE: Craniocaudal, mediolateral, and mediolateral oblique 3-D tomosynthesis images of the breas ts were performed and synthetic 2-D images were generated. CAD analysis was submitted and interpreted . High resolution limited left breast ultrasound was performed. COMPARISON: None, baseline BREAST PARENCHYMAL COMPOSITION: The breasts are heterogeneously dense, which may obscure small masses . FINDINGS: MAMMOGRAPHIC FINDINGS: No suspicious mass, calcification, or architectural distortion are identified in either breast to sug gest malignancy. No mammographic correlate is identified for the patient's reported left nipple disch arge. ULTRASOUND: No sonographic correlate is identified for the patient's reported left nipple discharge. IMPRESSION: 1. No specific mammographic or sonographic correlate is identified for the patient's left nipple disc harge. Further evaluation at this time should be based on clinical assessment. Continued follow-up ph ysical examination is recommended. Consider surgical evaluation. 2. Recommend routine screening mammography in one year. BI-RADS Category 1: Negative Reviewed, dictated and finalized at location A. MONIA OPERATOR IMPRESSION: 1. No specific mammographic or sonographic correlate is identified for the lety ent's left nipple discharge. Further evaluation at this time should be based on clinical assessment. Continued follow-up physical examination is recommended. Consider surgical evaluation. 2. Recommend routine screening mammography in one year. BI-RADS Category 1: Negative
== END 2023-10-25 10:45 | disposition home or self-care (01) ==
PROVIDERS: PCP Emergency Medicine; Visit Provider Nurse Practitioner Obstetrics & Gynecology
DX: N64.52 Nipple discharge (principal)
CPT/HCPCS: 76642; 77062; 77066; G0279

== ENCOUNTER 2023-11-04 14:47 | Outpatient (CLI) | payer OTHER, SELFPAY ==
--- NOTE | ~2023-11-04 | US_ITS ---
EXAMINATION: US thyroid DATE: 11/04/2023 15:28 INDICATION: Right thyroid nodule. TECHNIQUE: Multiple ultrasound images of the thyroid were obtained. COMPARISON: None. FINDINGS: The right thyroid lobe measures 5.5 x 2.2 x 2.3 cm. The left thyroid lobe measures 5.2 x 2.2 x 1.7 c m. In the right thyroid lobe, there is 10 mm cyst (TI-RADS TR1). IMPRESSION: 1. Benign cyst in the thyroid. No follow-up is needed. Reviewed, dictated and finalized at location E. OR EXTRACTOR
== END 2023-11-04 14:48 | disposition home or self-care (01) ==
PROVIDERS: PCP Emergency Medicine; Visit Provider Emergency Medicine
DX: E04.2 Nontoxic multinodular goiter (principal)
CPT/HCPCS: 76536

== ENCOUNTER 2023-11-06 05:41 | Emergency (ER) | payer OTHER, SELFPAY ==
--- NOTE | ~2023-11-06 | CT_ITS ---
EXAMINATION: CT abdomen pelvis w con INDICATION: Nausea vomiting and diarrhea TECHNIQUE: Computed tomographic images of the abdomen and pelvis were obtained after the administrati on of 100 cc of Omnipaque 350 intravenous contrast. The dose-length product (DLP) was 411.36 mGy-cm. Automated exposure control and iterative reconstruction technique were employed. COMPARISON: None available FINDINGS: The lung bases are clear. The heart size is normal. There is a small sliding hiatal hernia. There is a 12 mm cyst of the right hepatic lobe. The spleen, pancreas, gallbladder and adrenal gland s are normal. The kidneys are unremarkable. No pathologically enlarged abdominal or pelvic lymph node s are identified. No free intraperitoneal gas or evidence of bowel obstruction. The appendix is bree l. There is liquid stool in the colon to the level of the rectum. There is a tiny umbilical hernia co ntaining fat. IMPRESSION: 1. Liquid stool in the colon to the level of the rectum, consistent with diarrhea. Reviewed, dictated and finalized at location F. TED CIRCUIT BOARD LAYOUT DESIGNER IMPRESSION: 1. Liquid stool in the colon to the level of the rectum, consistent with diarrh ea.
[2023-11-06 05:45] VITALS: BP 120/82; PULSE 94; RESP 18; TEMP 36.6; O2SAT 99
--- NOTE | 2023-11-06 08:08 | ED.GENADULT ---
HPI - General Adult General Chief complaint: Nausea/Vomiting/Diarrhea Stated complaint: I think I have C-Diff again Time Seen by Provider: 11/06/23 07:47 History of Present Illness HPI narrative: 43-year-old female with history of C diff present to the emergency department for concern of current C diff. patient states that she began having some diarrhea about 3 days ago. Patient states that the abdominal pain started yesterday. Patient does describe associated nausea and vomiting. Patient denies any hematemesis or hematochezia. Patient was previously hospitalized here for C diff and patient does follow-up with Dr. Granger at [place] for GI. Related Data Home Medications Medication Instructions Recorded Confirmed omeprazole 40 mg capsule,delayed 40 mg PO DAILY 11/01/23 release Allergies Allergy/AdvReac Type Severity Reaction Status Date / Time amoxicillin AdvReac Intermediate N&V/DROWSY Verified 11/06/23 08:21 meperidine AdvReac Intermediate REDNESS Verified 11/06/23 08:21 AND BURNING AT IV SITE WITH INJECTION Review of Systems Review of Systems: All systems reviewed & are unremarkable except as noted in HPI and below PMFSH Past Medical History Medical History (Updated 11/06/23 @ 11:05 by Philip Gimenez MD) Ankle fracture, left Anxiety Arthritis Back injury GI bleed HSV infection Injury of left hip Kidney infection Left hand fracture Right clavicle fracture Surgical History Surgical History (Updated 12/16/22 @ 21:02 by Zeenat Coats NP) H/O dilation and curettage H/O laparoscopy H/O: hemorrhoidectomy S/P LEEP Family History Family History (Updated 11/01/23 @ 15:05 by Marie Fuller CMA) Father Cancer Hypertension Heart disease Other Diabetes mellitus High cholesterol Social History Social History (Updated 11/01/23 @ 15:04 by Marie Fuller CMA) Social History: She continues to smoke 1 pack a cigarettes a day. She lives with her boyfriend and has 3 children. She is not interested in smoking cessation Code status full code Smoking packs per day: 1 Smoking cigarettes per day: 20.0 Years smoked: 20 Smoking pack-years: 20.00 Smoking status: Current every day smoker Tobacco type: cigarettes Second hand tobacco smoke exposure: Yes Alcohol intake: never Substance use: current Substance use type: marijuana Do You Feel Safe in your Home?: Yes Lack of Transportation: No Lack of Food: Never True Current Housing: I Have Housing Concerned About Future Housing: No Difficulty Paying Gas/Electric Bills: No Difficulty Paying for Meds: No Currently Unemployed: No Education: High School Diploma/GED Difficulty w/ Childcare or Family Care: No Living arrangements: with family Gender identity (if verbalized by the patient): Female Sexual Orientation (if Verbalized by the Patient): Straight or Heterosexual Spiritual care concerns: No Exam Narrative: APPEARANCE: Well appearing, no pain, no distress, well-nourished. HEAD: normocephalic, atraumatic. EYES: PERRLA/EOMI, conjunctivae clear. NOSE: Normal no drainage NECK: Supple. No adenopathy, no masses. RESPIRATORY: Airway patent, respirations nonlabored. Clear to auscultation bilaterally, no rales, rhonchi, wheezing. CARDIOVASCULAR: Regular rate and rhythm without murmurs rubs or gallops. ABDOMINAL: Soft, nontender, nondistended, normal bowel sounds MUSCULOSKELETAL: Moves all extremities. Strength/ROM intact, No edema, No calf tenderness. NEURO: Alert. Cranial nerves II through XII intact. Grossly intact SKIN: Warm, dry. Normal Color Course Course Emergency Course: 43-year-old female presenting to the emergency department for evaluation for suspected C diff. Patient is afebrile but does have a leukocytosis of 17 with a normal hemoglobin. CMP shows no acute abnormality. UA shows no evidence of infection patient was negative for
[2023-11-06] MEDS: ONDANSETRON INJ 4 MG/2 ML VIAL IV PUSH (08:21)
[2023-11-06] MEDS: SODIUM CHLORIDE 0.9% IV 1,000 ML 999 ML IV CONT (08:21)
[2023-11-06 08:34] LABS: Basophils Absolute Auto 0.1 K/mm3 (0.0-0.1); Basophils Percent Auto 0.5 % (0.2-1.2); Eosinophils Absolute Auto 0.1 K/mm3 (0-0.3); Eosinophils Percent Auto 0.7 % (0-4.4); Hematocrit 43.7 % (37.0-47.0); Immature Granulocyte Absolute 0.09 K/mm3 (0.00-0.031); Immature Granulocyte Percent A 0.5 % (0-0.5); Lymphocytes Absolute Auto 1.32 K/mm3 (0.9-3.2); Lymphocytes Percent Auto 7.6 % (18.3-44.2); Mean Corpuscular Hemoglobin 28.8 pg (26-34); Mean Corpuscular Volume 89.9 fl (80-100); Mean Platelet Volume 9.3 fl (7.4-10.4); Monocytes Absolute Auto 0.9 K/mm3 (0.1-0.6); Monocytes Percent Auto 5.4 % (2.6-8.5); Neutrophils Absolute Auto 14.9 K/mm3 (1.3-6.7); Neutrophils Percent Auto 85.3 % (45.5-73.1); Platelet Count Result 326 k/mm3 (150-375); Red Blood Count 4.86 M/mm3 (4.2-5.4); Red Cell Distribution Width 13.5 % (11.5-14.5); White Blood Count 17.4 K/mm3 (4.5-10.0)
[2023-11-06 08:48] LABS: Lactic Acid Reflex 0.8 mmol/L (0.7-2.0)
[2023-11-06 08:49] LABS: Alanine Aminotransferase 15 U/L (6-35); Albumin Level 4.5 g/dL (3.5-5.1); Alkaline Phosphatase 78 U/L (38-126); Anion Gap 9 mmol/L (8-16); Aspartate Amino Transferase 25 U/L (14-36); Bilirubin,Total 0.6 mg/dL (0.2-1.3); Blood Urea Nitrogen 11 mg/dL (7-17); Calcium 9.5 mg/dL (8.4-10.2); Carbon Dioxide 23 mmol/L (22-30); Chloride 108 mmol/L (98-107); Estimated CRCL calculation 77 ml/min; Estimated Glomerular Filt Rate > 60; Glucose 103 mg/dL (65-110); Potassium 3.7 mmol/L (3.4-5.0); Sodium 140 mmol/L (137-145)
[2023-11-06 10:08] LABS: Toxigenic C. Diff NEGATIVE (NEGATIVE)
[2023-11-06 10:42] LABS: Add Urine Microscopic? YES; Appearance Urine Clear (Clear); Bacteria Urine Rare /hpf; Bilirubin Urine Negative (Negative); Blood Urine 2+ (Negative); Color Urine Yellow (Yellow); Glucose Urine UA Negative (Negative); Ketones Urine Trace mg/dL (Negative); Leukocyte Esterase Ur Negative LEU/UL (Negative); Nitrate Urine Negative (Negative); Non Pathogenic Casts 0-2; Protein Urine Negative (Negative); RBC Urine 0-2 /hpf (0-2); Specific Grav Ur 1.089 (1.001-1.035); Squamous Epithelial Cell Urine Few /hpf (Few); Urobilinogen Urine 0.2 mg/dL (<2.0); WBC Urine 0-5 /hpf
[2023-11-06 11:07] LABS: Influenza A QL RT-PCR Negative (Negative); Influenza B QL RT-PCR Negative (Negative); RSV RNA, RT-PCR Negative (Negative); SARS-CoV-2 RNA PCR Negative (Negative)
[2023-11-06 11:22] VITALS: BP 132/88; PULSE 88; RESP 16; O2SAT 98
== END 2023-11-06 11:23 | disposition home or self-care (01) ==
PROVIDERS: Emergency Provider Emergency Medicine; PCP Emergency Medicine
DX: R19.7 Diarrhea, unspecified (principal); Z20.822 Contact with and (suspected) exposure to COVID-19; M19.90 Unspecified osteoarthritis, unspecified site; F17.210 Nicotine dependence, cigarettes, uncomplicated
CPT/HCPCS: 36415; 74177; 80053; 81001; 83605; 85025; 87493; 87637; 96361; 96374; 99284; J2405; J7030; Q9967

== ENCOUNTER 2023-11-08 11:50 | Outpatient (CLI) | payer OTHER, SELFPAY ==
--- NOTE | ~2023-11-08 | XR_ITS ---
EXAMINATION: XR hip RT min 2V DATE: 11/08/2023 12:14 INDICATION: Right hip pain TECHNIQUE: Two views of right hip were obtained. COMPARISON: None. FINDINGS: Bone alignment is normal. There is no fracture. The soft tissues are unremarkable. IMPRESSION: 1. No acute osseous abnormality. Reviewed, dictated and finalized at location L. AL UPSTREAM MARKETING MANAGER
--- NOTE | ~2023-11-08 | XR_ITS ---
EXAMINATION: XR lumbar spine 2-3V DATE: 11/08/2023 12:14 INDICATION: Low back pain TECHNIQUE: Anteroposterior and lateral views of the lumbar spine, and cone-down lateral view of the l umbosacral junction were obtained. COMPARISON: 06/27/2023 FINDINGS: Bone alignment is normal. There is no fracture. The vertebral body heights and intervertebr al disc spaces are normal. Thoracolumbar dextrocurvature is again noted. There are phleboliths of the left pelvis. IMPRESSION: 1. Unremarkable lumbar spine radiographs. Reviewed, dictated and finalized at location L. D BUILDER
--- NOTE | ~2023-11-08 | XR_ITS ---
EXAMINATION: XR chest 2V Exam Date/Time: 11/08/2023 12:03 BIOMEDICAL ENGINEERING DIRECTOR HISTORY: CHRONIC PRODUCTIVE COUGH. SMOKER Comparison: 12/02/2022; CT abdomen pelvis 11/06/2023. RESULT: Lines, tubes, and devices: None. Lungs and pleura: Triangular opacity projecting over the left heart border, not present in the prior CT. No focal consolidation, pleural effusion, or pneumothorax. Cardiomediastinal silhouette: Stable. Other: No acute osseous or upper abdominal finding. IMPRESSION: Triangular atelectasis in the lingula. Reviewed, dictated and finalized at location K. EDICAL ENGINEERING DIRECTOR
[2023-11-08 12:51] LABS: Hemoglobin 12.5 g/dL (12.0-15.0); Mean Corpuscular HGB Conc 32.9 g/dl (32-36); Mean Corpuscular Hemoglobin 28.9 pg (26-34); Mean Platelet Volume 9.5 fl (7.4-10.4); Platelet Count Result 283 k/mm3 (150-375); Red Blood Count 4.32 M/mm3 (4.2-5.4); Red Cell Distribution Width 13.5 % (11.5-14.5); White Blood Count 9.5 K/mm3 (4.5-10.0)
[2023-11-08 13:31] LABS: SARS-CoV-2 RNA PCR Negative (Negative)
== END 2023-11-08 11:51 | disposition home or self-care (01) ==
PROVIDERS: PCP Emergency Medicine; Visit Provider Emergency Medicine
DX: R05.9 Cough, unspecified (principal); D72.829 Elevated white blood cell count, unspecified
CPT/HCPCS: 36415; 71046; 72100; 73502; 85027; 87635

== ENCOUNTER 2023-11-09 09:02 | Outpatient (CLI) | payer OTHER, SELFPAY | END 2023-11-09 09:03 | disposition home or self-care (01) | LOC: ANHLAB 09:04 | PROVIDERS: PCP Emergency Medicine; Visit Provider Emergency Medicine | DX: D72.829 Elevated white blood cell count, unspecified (principal) | CPT/HCPCS: 87045; 87177; 87209; 87427; 87449 ==

== ENCOUNTER 2023-11-10 10:02 | Emergency (ER) | payer OTHER, SELFPAY ==
--- NOTE | ~2023-11-10 | US_ITS ---
EXAMINATION: US venous doppler LE DATE: 11/10/2023 11:20 INDICATION: Right lower limb pain TECHNIQUE: Grayscale ultrasound images without and with compression and Doppler ultrasound images of the right lower extremity veins were obtained. COMPARISON: None. FINDINGS: The visualized portions of right common femoral vein, profunda (deep) femoral vein, femoral vein, pop liteal vein, peroneal trunk, posterior tibial veins, peroneal veins, gastrocnemius vein and greater s aphenous vein outflow are patent. IMPRESSION: 1. No deep venous thrombosis in the right lower limb. Reviewed, dictated and finalized at location A. TECHNICIAN
[2023-11-10 10:20] VITALS: BP 138/90; PULSE 78; RESP 20; TEMP 36.6; O2SAT 100
--- NOTE | 2023-11-10 10:27 | ED.GENADULT ---
HPI - General Adult General Chief complaint: Extremity Injury, Lower Stated complaint: r leg r/o dvt Time Seen by Provider: 11/10/23 10:07 Source: patient Mode of arrival: ambulatory Limitations: no limitations History of Present Illness HPI narrative: this is a 43-year-old female who presents to the ED with chief complaint of right lower extremity pain ongoing for several years worse past couple of weeks. Patient reports pain in the right groin and inner thigh region that is worsened with certain movements. Reports initial injury 20 years ago and it just feels like things are getting worse this area. She was sent to the ED today by her PCP to rule out a blood clot but patient does not think she has any evidence of DVT. No history of DVTs. Denies calf swelling or tenderness. Denies fevers, chills, numbness, weakness or back pain. Related Data Home Medications Medication Instructions Recorded Confirmed omeprazole 40 mg capsule,delayed 40 mg PO DAILY 11/01/23 release Allergies Allergy/AdvReac Type Severity Reaction Status Date / Time amoxicillin AdvReac Intermediate N&V/DROWSY Verified 11/10/23 10:23 meperidine AdvReac Intermediate REDNESS Verified 11/10/23 10:23 AND BURNING AT IV SITE WITH INJECTION Review of Systems Review of Systems: All systems as dictated in [facility] Past Medical History Medical History (Updated 11/10/23 @ 10:32 by Issa De La Rosa PA-C) Ankle fracture, left Anxiety Arthritis Back injury GI bleed HSV infection Injury of left hip Kidney infection Left hand fracture Right clavicle fracture Surgical History Surgical History (Updated 12/16/22 @ 21:02 by Zeenat Coats NP) H/O dilation and curettage H/O laparoscopy H/O: hemorrhoidectomy S/P LEEP Family History Family History (Updated 11/01/23 @ 15:05 by Marie Fuller CMA) Father Cancer Hypertension Heart disease Other Diabetes mellitus High cholesterol Social History Social History (Updated 11/01/23 @ 15:04 by Marie Fuller CMA) Social History: She continues to smoke 1 pack a cigarettes a day. She lives with her boyfriend and has 3 children. She is not interested in smoking cessation Code status full code Smoking packs per day: 1 Smoking cigarettes per day: 20.0 Years smoked: 20 Smoking pack-years: 20.00 Smoking status: Current every day smoker Tobacco type: cigarettes Second hand tobacco smoke exposure: Yes Alcohol intake: never Substance use: current Substance use type: marijuana Do You Feel Safe in your Home?: Yes Lack of Transportation: No Lack of Food: Never True Current Housing: I Have Housing Concerned About Future Housing: No Difficulty Paying Gas/Electric Bills: No Difficulty Paying for Meds: No Currently Unemployed: No Education: High School Diploma/GED Difficulty w/ Childcare or Family Care: No Living arrangements: with family Gender identity (if verbalized by the patient): Female Sexual Orientation (if Verbalized by the Patient): Straight or Heterosexual Spiritual care concerns: No Exam Narrative: GENERAL: Well-appearing, well-nourished, and in no acute distress. HEAD: Normocephalic, atraumatic. EYES: PERRLA and EOMI. ENT: Nares clear, no rhinorrhea or epistaxis. Mucous membranes moist. Oropharynx without tonsillar hypertrophy exudate or other lesions. NECK: Supple. No adenopathy or masses. CHEST: No respiratory distress. Clear to auscultation. No wheezes rales or rhonchi HEART: Regular rate and rhythm. No murmur heard. Normal peripheral pulses. ABDOMEN: Soft, nontender, nondistended, normal active bowel sounds. MSK: Reproducible right medial thigh pain with range of motion of the right hip. Tenderness to the anterior and medial thigh. No bruising or skin changes. Left lower extremity benign. Normal range of motion. No edema. SKIN: Warm, dry, no rash. NEURO: Al
== END 2023-11-10 12:10 | disposition home or self-care (01) ==
LOC: ANHED 10:36
PROVIDERS: Emergency Provider Physician Assistant; PCP Emergency Medicine
DX: M79.604 Pain in right leg (principal); G89.29 Other chronic pain; M19.90 Unspecified osteoarthritis, unspecified site; F17.210 Nicotine dependence, cigarettes, uncomplicated
CPT/HCPCS: 93971; 99284

== ENCOUNTER 2023-11-16 12:40 | Outpatient (CLI) | payer OTHER, SELFPAY ==
--- NOTE | ~2023-11-16 | MR_ITS ---
EXAMINATION: MR breast BI wo/w con INDICATION: Left nipple discharge TECHNIQUE: Axial VIBRANT pre and dynamic post contrast, Sagittal VIBRANT post contrast, Axial T2 STIR ASSET COMPARISON: Diagnostic mammogram and ultrasound dated 10/25/2023 CONTRAST: Multihance, 15 cc BREAST COMPOSITION: Heterogeneous fibroglandular tissue FINDINGS: RIGHT BREAST: There is mild background parenchymal enhancement. There is a 1.2 x 0.5 x 0.4 cm area of nonmass enhancement in the posterior third of the lower breast at the 6:00 location, 8 cm from the n ipple. No pathologically enlarged axillary or internal mammary lymph nodes are identified. LEFT BREAST: There is mild background parenchymal enhancement. No correlate is identified for the pat ient's left nipple discharge. No pathologically enlarged internal mammary or axillary lymph nodes are identified. IMPRESSION: 1. No correlate identified for the patient's left nipple discharge. Clinical follow-up is recommended . 2. Nonmass enhancement of right breast. MR guided biopsy is recommended. BI-RADS category 4, suspicious findings. Reviewed, dictated and finalized at location A. LATORY AFFAIRS PORTFOLIO LEADER IMPRESSION: 1. No correlate identified for the patient's left nipple discharge. Clinical fo llow-up is recommended. 2. Nonmass enhancement of right breast. MR guided biopsy is recommended. BI-RADS category 4, suspicious findings.
== END 2023-11-16 12:41 | disposition home or self-care (01) ==
LOC: ANHIMG 12:42
PROVIDERS: PCP Emergency Medicine; Visit Provider Surgery
DX: N64.52 Nipple discharge (principal)
CPT/HCPCS: 77049; A9577; C8908

== ENCOUNTER 2023-12-28 03:33 | Day surgery (SDC) | payer OTHER, SELFPAY ==
[2023-12-26 09:55] VITALS: BMI 27.8
--- NOTE | 2023-12-26 10:00 | PC.NURSE ---
Report to the Outpatient Waiting Room, entrance under the green pavilion located off [facility], at time 0630 on date 12/28/23. Planned Procedure Time: 0830. Time changes happen often and if your time is changed the preop area will call you the afternoon before. - You and your visitor will be asked to self-screen and do not enter if you have any COVID symptoms. - A mask is optional within the hospital at this time. Patients may have clear liquids (water, carbonated beverages, clear teas, apple juice) until 3 hours prior to surgery with a maximum of 20 ounces. - No food from midnight until time of surgery Take the following medications with a SIP of water the morning of surgery: INHALER DO NOT STOP ANY OF YOUR OTHER PRESCRIPTION MEDICATIONS PRIOR TO SURGERY ?EXCEPT THE FOLLOWING Medications to discontinue per physician: N/A Date to take last dose: N/A Please no make-up, nail [place] islander, hairspray, perfume, deodorant, or body powder the day of surgery. No jewelry (including any body piercings) or valuables the day of surgery, leave them at home. Please take a shower or bath the night before, or the morning of, surgery with an antibacterial soap. Wear comfortable, loose fitting clothing. - Jewelry must be removed prior to entering the operating room. Rings and piercings that are not removed may be cut off. - The hospital will not accept responsibility for valuables. - Please leave all valuables, including medications, at home the day of surgery. If you are going home after surgery, a licensed flatbed driver must drive you home. - NO public transportation without another adult if you receive anesthesia. - We recommend that an adult stay with you for 24 hours following discharge. - We also recommend that you do not drive, make important decision, drink alcoholic beverages, or take any drugs that were not prescribed by your health care provider for at least 24 hours after your discharge time. Follow any additional instructions given to you from your surgeon. If you or anyone in your household have experienced Covid symptoms in the past week, please notify your surgeon or the nurse liaison at the phone number below for possible testing. Telephone instructions given to GABRIELLA HOWARD and asked if any additional questions and then verbalized understanding. Patient advised to call surgeon office or pre surgery nurse liaison [phone] if any additional questions.
[2023-12-28] VITALS (10 sets, daily range): BP systolic 94–124; BP diastolic 61–77; PULSE 56–79; RESP 16–18; TEMP 36.3; O2SAT 95–100
--- NOTE | 2023-12-28 07:17 | WPDANESEPPF ---
Anes - Initial Pre Proc Eval Procedure: Operation Date: 12/28/23 08:30 Proposed Procedures p Hysteroscopy with Gita Endometrial Ablation - Andi Thomas MD s Laparoscopic Bilateral Salpingectomy - Andi Thomas MD Date/Time: 12/28/23 07:17 Surgeon: Andi Thomas MD Pre Op Diagnosis: Menorrhagia Patient Data Age: 43 Gender: F Height: 1.61 m Weight: 72.6 kg Allergies Allergy/AdvReac Type Severity Reaction Status Date / Time amoxicillin AdvReac Intermediate N&V/DROWSY Verified 12/26/23 09:54 meperidine AdvReac Intermediate REDNESS Verified 12/26/23 09:54 AND BURNING AT IV SITE WITH INJECTION Home Medications Medication Instructions Recorded Confirmed Type omeprazole 40 mg capsule,delayed 40 mg PO DAILY 11/01/23 12/26/23 History release ondansetron 4 mg disintegrating 4 mg PO Q8H PRN nausea and 11/06/23 12/26/23 Rx tablet vomiting #14 tabs tiotropium 2.5 mcg-olodaterol 2.5 2 puff inhalation DAILY 11/23/23 12/26/23 History mcg/actuation mist for inhalation (Stiolto Respimat) Patient hx anesthesia problems: none Family hx anesthesia problems: none Results Review: All pre-operative results and documents have been reviewed as part of the pre-operative evaluation. [facility] Past Medical History Medical History Ankle fracture, left Anxiety Arthritis Back injury GI bleed HSV infection Injury of left hip Kidney infection Left hand fracture Right clavicle fracture Surgical History Surgical History H/O dilation and curettage H/O laparoscopy H/O: hemorrhoidectomy S/P LEEP Family History Family History Father Cancer Hypertension Heart disease Other Diabetes mellitus High cholesterol Social History Social History Social History: She continues to smoke 1 pack a cigarettes a day. She lives with her boyfriend and has 3 children. She is not interested in smoking cessation Code status full code Smoking packs per day: 1 Smoking cigarettes per day: 20.0 Years smoked: 20 Smoking pack-years: 20.00 Smoking status: Current every day smoker Tobacco type: cigarettes Second hand tobacco smoke exposure: Yes Alcohol intake: never Substance use: current Substance use type: marijuana Do You Feel Safe in your Home?: Yes Lack of Transportation: No Lack of Food: Never True Current Housing: I Have Housing Concerned About Future Housing: No Difficulty Paying Gas/Electric Bills: No Difficulty Paying for Meds: No Currently Unemployed: No Education: High School Diploma/GED Difficulty w/ Childcare or Family Care: No Living arrangements: with family Gender identity (if verbalized by the patient): Female Sexual Orientation (if Verbalized by the Patient): Straight or Heterosexual Spiritual care concerns: No Anes - Eval Final PreProcedure Day of Procedure 12/28/23 07:17 Patient weight: overweight Heart: regular rate and rhythm Lungs: clear to auscultation Airway: Mallampati scale class II Neurological: alert and oriented Last oral intake: >/= 8 hours ASA classification: II Emergent: no Anesthetic plan: proceed Anesthesia type and monitoring: general ETT and standard monitoring Results Review: All pre-operative results and documents have been reviewed as part of the pre-operative evaluation. Informed Consent: The patient's anesthetic plan and its attendant risks and benefits were discussed with the patient/family/POA. Questions were solicited and answers provided to the satisfaction of the patient/family/POA.
--- NOTE | 2023-12-28 08:02 | PM.IMHP ---
H&P: HPI History of Present Illness Date/Time: 12/28/23 08:02 Chief Complaint: Heavy vaginal bleed Narrative: this patient is a 43-year-old female with severe menorrhagia. We have agreed to perform endometrial ablation with hysteroscopy. She understands the procedure. She understands the details and she also has been informed of risk. She understands that injuries may occur as a result hospitalization, more surgery, and severe illness. She understands there is risk of hemorrhage and infection. She denies any nausea, vomiting, fever, chills. She denies any chest shortness of breath. Review of Systems Review of Systems: All systems reviewed & are unremarkable except as noted in HPI and below Constitutional: Constitutional: Denies chills, Denies fatigue, Denies fever(s) and Denies weakness Eyes: Eyes: Denies blurry vision, Denies change in vision, Denies loss of peripheral vision, Denies loss of vision, Denies other visual disturbances and Denies eye pain ENT: Denies vertigo, Denies dizziness, Denies hearing loss, Denies mouth pain, Denies nasal obstruction, Denies neck mass and Denies neck pain Cardiovascular: Cardiovascular: Denies chest pain, Denies diaphoresis, Denies syncope, Denies leg edema and Denies dyspnea Respiratory: Respiratory: Denies chest congestion, Denies cough, Denies hemoptysis, Denies dyspnea and Denies wheezing Gastrointestinal: Gastrointestinal: Denies abdominal pain, Denies constipation, Denies diarrhea, Denies nausea and Denies vomiting Genitourinary: Genitourinary: Denies hematuria, Denies change in libido, Denies nocturia, Denies genital lesions, Denies flank pain and Denies urinary urgency Musculoskeletal: Musculoskeletal: Denies abnormal gait, Denies back pain, Denies myalgias, Denies arthralgias, Denies joint swelling, Denies muscle weakness and Denies neck pain Integumentary/Breasts: Skin/Breast: Denies swelling, Denies breast pain, Denies breast mass, Denies dry skin, Denies nipple discharge, Denies unusual bruising and Denies jaundice Neurologic: Denies Neuro-related abnormal movements, Denies Abnormal speech present, Denies abnormal gait, Denies behavioral changes, Denies confusion, Denies vertigo, Denies dizziness, Denies syncope, Denies loss of vision, Denies memory loss, Denies convulsions and Denies weakness Psychiatric: Psychiatric: Denies abnormal sleep pattern, Denies behavioral changes, Denies change in libido, Denies confusion, Denies depression, Denies anhedonia and Denies memory loss Endocrine: Endocrine: Reports no additional endocrine complaints, Denies change in libido and Denies fatigue Hematologic/Lymphatic: Hematologic/Lymphatic: Reports no additional hematologic/lymphatic complaints Allergic/Immunologic: Allergic/Immunologic: Reports no additional allergic/immunologic complaints and Denies wheezing PMFSH Past Medical History Medical History Ankle fracture, left Anxiety Arthritis Back injury GI bleed HSV infection Injury of left hip Kidney infection Left hand fracture Right clavicle fracture Surgical History Surgical History H/O dilation and curettage H/O laparoscopy H/O: hemorrhoidectomy S/P LEEP Family History Family History Father Cancer Hypertension Heart disease Other Diabetes mellitus High cholesterol Social History Social History Social History: She continues to smoke 1 pack a cigarettes a day. She lives with her boyfriend and has 3 children. She is not interested in smoking cessation Code status full code Smoking packs per day: 1 Smoking cigarettes per day: 20.0 Years smoked: 20 Smoking pack-years: 20.00 Smoking status: Current every day smoker Tobacco type: cigarettes Second hand tobacco smoke exposure
--- NOTE | 2023-12-28 08:05 | WPDHPUPDATE1 ---
History and Physical Update Update Date/Time: 12/28/23 08:05 History and Physical has been reviewed, including an updated exam of the patient. There are NO changes in the patient's condition. Risks, benefits, and alternatives have been discussed and questions answered. Patient agrees to proceed with procedure.
[2023-12-28] MEDS: LACTATED RINGERS 1,000 ML 30 ML IV CONT (09:35)
--- NOTE | 2023-12-28 09:45 | P.OP_ITS ---
Procedure Note - Detailed Date of Procedure 12/28/23 Pre-op Diagnosis Menorrhagia Post-op Diagnosis Same Procedure Performed Laparoscopic bilateral salpingectomy with endometrial ablation and hysteroscopy. Surgeon Andi Thomas MD Anesthesia General Indications Menorrhagia, female sterilization Findings Normal pelvic anatomy intra-abdominally. Normal vulva, vagina, intrauterine cavity. Normal cervix Description of Procedure Patient was taken the operating room. She has prepped draped in the dorsal lithotomy position after induction of general anesthesia. A 5 mm abdominal incision was made in left upper quadrant of the abdomen with scalpel. A 5 mm trocars inserted the intra-abdominal cavity under direct visualization of the scope. Pneumoperitoneum was achieved. A 5 mm periumbilical incision was made using a scalpel on the abdominal scan. A 5 mm trocar was inserted the intra- abdominal cavity under visualization of the scope. A 5 mm incision made left lower quadrant of the abdomen. A 5 mm trocar was inserted the intra-abdominal cavity and direct visualization of the scope. The bilateral fallopian tubes were removed. The paratubal tissue in the area of the uterus was grasped with the LigaSure cautery and transected after being cauterized. The paratubal tissue from the ovary to the uterine cornu was cauterized and transected with LigaSure cautery. This was all done in a bilateral fashion. The tube was transected at the area of the uterine cornua and the tubes was removed through the 5 mm trocar site. The pneumoperitoneum was reduced. The trocars were removed. The skin was closed with subcuticular 4 Monocryl and covered with Dermabond. Our attention was then turned to the endometrial ablation portion of the procedure. A speculum was placed in the vagina. The cervix was grasped with a tenaculum. The cervix was dilated to approximately 8 mm with Payton dilators. The hysteroscope was inserted. And the below findings were noted. All of the intrauterine surfaces were curettaged with a medium-size curette and the specimens were collected. Measurements of the cervix were taken using the uterine sound and the hysteroscope. The intrauterine cavity measurements were entered into the handpiece. The device was inserted into the intrauterine cavity and the array was expanded. The balloon cuff was inflated. When an adequate seal was formed the safety and energy cycles were initiated and completed. The array was collapsed, the balloon was deflated. The insert was withdrawn. The hysteroscope was reinserted and a well desiccated intrauterine cavity was observed. The patient was taken recovery room stable condition. Sponge lap and needle counts were correct x2. She tolerated the procedure well. Pathology Yes Complications No immediate complications Condition Stable Disposition PACU
--- NOTE | 2023-12-28 11:49 | SUR.PHASEII ---
Vital signs stable. IV removed. Patient dressed and awaiting ride home.
== END 2023-12-28 11:50 | disposition home or self-care (01) ==
PROVIDERS: PCP Emergency Medicine; Visit Provider Obstetrics & Gynecology
PROC: 0U5B8ZZ Destruction of Endometrium, Via Natural or Artificial Opening Endoscopic (ICD-10-PCS; CPT 58563; principal; 2023-12-28 08:30)
PROC: (CPT 49320; 2023-12-28 08:30)
DX: N92.0 Excessive and frequent menstruation with regular cycle (principal); Z30.2 Encounter for sterilization; Z79.51 Long term (current) use of inhaled steroids; F17.210 Nicotine dependence, cigarettes, uncomplicated; F12.90 Cannabis use, unspecified, uncomplicated
CPT/HCPCS: 58661; 58563; 88302; 88305; J0330; J1100; J2250; J2405; J2704; J3010; J7120

== ENCOUNTER 2024-05-18 12:07 | Emergency (ER) | payer SELFPAY ==
[2024-05-18 12:10] VITALS: BP 119/65; PULSE 85; RESP 20; TEMP 36.3; O2SAT 99
[2024-05-18 13:18] VITALS: BP 104/66; PULSE 95; RESP 16; TEMP 36.6; O2SAT 98
[2024-05-18 13:48] VITALS: BP 119/72; PULSE 76; RESP 16; TEMP 36.4; O2SAT 99
--- NOTE | 2024-05-18 14:00 | ED.GENADULT ---
HPI - General Adult General Chief complaint: Nausea/Vomiting/Diarrhea Stated complaint: N/V, dizzy Time Seen by Provider: 05/18/24 13:23 History of Present Illness HPI narrative: This is a 44-year-old female with history of anxiety and panic attacks presenting with a panic attack. Patient was on her way to work when she developed an over welling sense of dread, shortness of breath tachycardia nausea, perioral tingling and hand cramps. She then came to the hospital. At this time all of her symptoms had resolved. Patient says that this is similar to previous panic attacks she has had although she thought this 1 felt different at that time. At this point she is asymptomatic. She is declining any workup or anxiolytics. Related Data Home Medications Medication Instructions Recorded Confirmed omeprazole 40 mg capsule,delayed 40 mg PO DAILY 11/01/23 01/16/24 release tiotropium 2.5 mcg-olodaterol 2.5 2 puff inhalation DAILY 11/23/23 01/16/24 mcg/actuation mist for inhalation (Stiolto Respimat) multivitamin 1 tablet PO DAILY 01/16/24 01/16/24 Allergies Allergy/AdvReac Type Severity Reaction Status Date / Time amoxicillin AdvReac Intermediate N&V/DROWSY Verified 01/16/24 09:09 meperidine AdvReac Intermediate REDNESS Verified 01/16/24 09:09 AND BURNING AT IV SITE WITH INJECTION PMFSH Past Medical History Medical History Ankle fracture, left Anxiety Arthritis Back injury GI bleed HSV infection Injury of left hip Kidney infection Left hand fracture Right clavicle fracture Surgical History Surgical History H/O dilation and curettage H/O laparoscopy H/O: hemorrhoidectomy S/P LEEP Family History Family History Father Cancer Hypertension Heart disease Other Diabetes mellitus High cholesterol Social History Social History Social History: She continues to smoke 1 pack a cigarettes a day. She lives with her boyfriend and has 3 children. She is not interested in smoking cessation Code status full code Smoking packs per day: 1 Smoking cigarettes per day: 20.0 Years smoked: 20 Smoking pack-years: 20.00 Smoking status: Current every day smoker Tobacco type: cigarettes Second hand tobacco smoke exposure: Yes Alcohol intake: never Substance use: current Substance use type: marijuana Other substance usage details: every other day Do You Feel Safe in your Home?: Yes Lack of Transportation: No Lack of Food: Never True Current Housing: I Have Housing Concerned About Future Housing: No Difficulty Paying Gas/Electric Bills: No Difficulty Paying for Meds: No Currently Unemployed: No Education: High School Diploma/GED Difficulty w/ Childcare or Family Care: No Living arrangements: with family Gender identity (if verbalized by the patient): Female Sexual Orientation (if Verbalized by the Patient): Straight or Heterosexual Spiritual care concerns: No Exam Narrative: APPEARANCE: Patient appears anxious, she is intermittently tearful during the interview Head: atraumatic. EYES: EOMI, NOSE: Atraumatic NECK: Trachea midline RESPIRATORY: No increased rate of breathing clear auscultation CARDIOVASCULAR: RRR, no peripheral edema ABDOMINAL: Non-distended soft nontender MUSCULOSKELETAl: No obvious deformities NEURO: Alert. Moving 4/4 extremities SKIN:: Warm, dry. Normal color PSYCHIATRIC: Normal affect Course Vital Signs Vital signs: Vital Signs Temperature 97.4 F L 05/18/24 12:10 Pulse Rate 85 05/18/24 12:10 Respiratory Rate 20 05/18/24 12:10 Blood Pressure 119/65 05/18/24 12:10 Pulse Oximetry 99 05/18/24 12:10 Oxygen Delivery Room Air 05/18/24 12:10 Temperature 9
== END 2024-05-18 14:24 | disposition home or self-care (01) ==
PROVIDERS: Emergency Provider Emergency Medicine; PCP Emergency Medicine
DX: F41.0 Panic disorder [episodic paroxysmal anxiety] (principal); M19.90 Unspecified osteoarthritis, unspecified site; F17.210 Nicotine dependence, cigarettes, uncomplicated
CPT/HCPCS: 99281

== ENCOUNTER 2025-02-02 09:46 | Emergency (ER) | payer OTHER, SELFPAY ==
--- NOTE | 2025-02-02 09:46 | ED_ITS ---
HPI - Skin/Abscess/Foreign Bdy General Chief complaint: Skin/Abscess/Foreign Body Stated complaint: Skin/Abscess/Foreign Body Time Seen by Provider: 02/02/25 09:46 Source: patient Mode of arrival: ambulatory Limitations: no limitations History of Present Illness HPI narrative: Patient is a 44-year-old female who presents with bilateral eye irritation for 3 days. Patient states her eyelids have been red, itchy. Denies any vision changes or drainage. Denies any new lotions or soaps. Is on treatment for trichomoniasis. Related Data Home Medications ?Medication ?Instructions ?Recorded ?Confirmed ?Last Taken ?Type omeprazole 40 mg capsule,delayed 40 mg PO DAILY 11/01/23 02/02/25 Unknown History release multivitamin 1 tablet PO DAILY 01/16/24 02/02/25 Unknown History bupropion HCl 150 mg tablet,12 hr mg PO 02/02/25 Unknown History sustained-release metronidazole 500 mg tablet mg 02/02/25 Unknown History Allergies Allergy/AdvReac Type Severity Reaction Status Date / Time amoxicillin AdvReac Intermediate N&V/DROWSY Verified 02/02/25 09:47 meperidine AdvReac Intermediate REDNESS Verified 02/02/25 09:47 AND BURNING AT IV SITE WITH INJECTION Review of Systems Review of Systems: All systems reviewed & are unremarkable except as noted in HPI and below Constitutional: Constitutional: Denies body ache(s), Denies fever(s), Denies headache(s), Denies malaise and Denies weakness Eyes: Eyes: Denies blurry vision, Denies eye discharge, Reports irritation, Reports itchy eyes, Denies loss of vision and Denies eye pain ENT: Denies otalgia, Denies headache(s), Denies nasal discharge, Denies sinus pain and Denies sore throat Cardiovascular: Cardiovascular: Denies chest pain, Denies irregular heart rhythm and Denies dyspnea Respiratory: Respiratory: Denies dyspnea Gastrointestinal: Gastrointestinal: Denies abdominal pain, Denies diarrhea, Denies nausea and Denies vomiting Musculoskeletal: Musculoskeletal: Denies back pain, Denies myalgias and Denies arthralgias Integumentary/Breasts: Skin/Breast: Denies pruritus and Denies rash Neurologic: Denies headache(s), Denies loss of vision and Denies weakness Psychiatric: Psychiatric: Reports no additional psychiatric complaints Allergic/Immunologic: Allergic/Immunologic: Reports itchy eyes PMFSH Past Medical History Medical History Anxiety Back injury Injury of left hip Right clavicle fracture Left hand fracture Ankle fracture, left Arthritis Kidney infection HSV infection GI bleed Surgical History Surgical History H/O laparoscopy H/O: hemorrhoidectomy S/P LEEP H/O dilation and curettage Family History Family History Father Cancer Hypertension Heart disease Other Diabetes mellitus High cholesterol Social History Social History Social History: She continues to smoke 1 pack a cigarettes a day. She lives with her boyfriend and has 3 children. She is not interested in smoking cessation Code status full code Smoking packs per day: 1 Smoking cigarettes per day: 20.0 Years smoked: 20 Smoking pack-years: 20.00 Smoking status: Current every day smoker Tobacco type: cigarettes Second hand tobacco smoke exposure: Yes Alcohol intake: never Substance use: current Substance use type: marijuana Other substance usage details: every other day Do You Feel Safe in your Home?: Yes Lack of Transportation: No Lack of Food: Never True Current Housing: I Have Housing Concerned About Future Housing: No Difficulty Paying Gas/Electric Bills: No Difficulty Paying for Meds: No Currently Unemployed: No Education: High School Diploma/GED Difficulty w/ Childcare or Family Care: No Living arrangements: with family Gender identity (if verbalized by the patient): Female Sexual Orientation (if Verbalized by the Patient): Straight or Heterosexual Spiritual care concerns: No Comments At time of signature, agree with nursing past medical, surgical, social and family history. There is no relevant family history pertinent to the presenting complaint. Exam Const: General: cooperative, healthy appearing, comfortable, no acute distress and well nourished Nutritional Appearance: well nourished Orientation/consciousness: patient oriented x3 Limitations: no limitations HENMT: Head: normal to inspection, normocephalic and atraumatic Ears: external ears normal Face/Nose/Sinus: Normal external nose present, normal facial exam and face symmetric Face and sinus: normal facial exam and face symmetric Mouth: Yes lip normal Eyes: General: appearance normal, both eyes and all related structures Visual Haq: normal visual haq by confrontation Alignment and Position: alignment normal and position normal Periorbital: periorbital findings normal Eyelids: eyelid abnormality right upper eyelid erythema and other (dry, flaking) and left upper eyelid erythema and other (dry, flaking) Conjunctivae: conjunctivae normal Sclera: sclerae normal Pupils: Equal, round and reactive pupils present EOM: EOMs intact bilaterally Direct O phthalmoscopy: no photophobia Other: No hyphema, no foreign body under the lids. Neck: Neck: normal visual inspection, full ROM, no lymphadenopathy and no meningeal signs Chest: Chest palpation & inspection: normal inspection of the chest Resp: Effort & Inspection: normal respiratory effort and able to speak in complete sentences Auscultation: clear to auscultation bilaterally Cardio: Rate: regular rate Rhythm: regular rhythm Heart sounds: S1 normal heart sound present and S2 normal heart sound present GI: Inspection: normal to inspection Skin: General skin exam: normal color and no rashes or lesions noted Neuro: General: patient oriented x3, moves all extremities and no meningeal signs Cranial nerves: Yes Equal, round and reactive pupils present Speech: normal speech Gait exam (Neuro): Normal gait present Extrem: General: normal to inspection, full ROM and no edema Psych: Appearance: grossly normal and well kempt Mental Status: mental status grossly normal Speech and movement: Normal speech and movement present Affect: normal affect Attitude: cooperative Thought process: Normal thought process present Course Course Emergency Course: Patient is aware of diagnosis, understands and agrees to treatment plan. Anticipatory guidance given. Patient agrees to follow-up as directed and is aware of reasons to seek care at the emergency department. Portions of this record may have been created with voice recognition software Level of Care: Express Care Visit Vital Signs Vital signs: Reviewed MDM - Skin/Abscess/Foreign Bdy MDM Narrative Medical decision making narrative: Pt well hydrated appearing, in no respiratory distress, hemodynamically stable. Recommend supportive care. The patient is stable at time of discharge the clinical impression was discussed and the patient was given the opportunity to ask questions, which were addressed as completely as possible given the information available at present. Anticipatory guidance and return to care precautions were discussed and the importance of primary care follow-up was stressed and encouraged. The patient voiced understanding of the plan, indications to return, and the need for follow-up. Exam findings show no acute concerns or changes Patient is appropriate for outpatient treatment and follow-up. Differential Diagnosis Differential diagnosis: Likely dermatophytosis, allergic reaction to drug, cellulitis, eczema and contact dermatitis Medical Records Attestation: I reviewed the patient's medical records. Discharge Plan Discharge Clinical Impression: Contact dermatitis Qualifiers: Contact dermatitis type: unspecified Contact dermatitis trigger: unspecified trigger Qualified Code(s): L25.9 - Unspecified contact dermatitis, unspecified cause Patient Disposition: Home Condition: Stable Instructions: Dermatitis (ED) Additional Instructions: The most important part of your care is follow up with Primary care provider. Take Benadryl 25-50 mg every 6 hours for itching Take Claritin, Zyrtec, or Rhonda daily for the next 7 days Avoid hot showers, Take cool showers. Wash the area with gentle soap and water only. Use antibiotic ointment as prescribed. Alternate with Aquaphor. Avoid scratching when possible to prevent worsening of the condition and disruption of the skin that could lead to bacterial infection To relieve itching, place a cool washcloth or some ice over the area that itches, rather than scratching Follow up with primary care provider or seek ER if you have trouble breathing, become hoarse, or start wheezing, develop belly cramps, vomiting or feel dizzy. Patient Language: Romanian Prescriptions: New erythromycin 5 mg/gram (0.5 %) ointment 0.5 inch EACH EYE QID 5 Days Qty: 3.5 0RF No Action bupropion HCl 150 mg tablet sustained-release 12 hr PO metronidazole 500 mg tablet omeprazole 40 mg capsule,delayed release(DR/EC) 40 mg PO DAILY oxycodone-acetaminophen 5-325 mg tablet 1 tablet PO Q4H PRN (Reason: pain) Qty: 10 0RF ondansetron 4 mg tablet,disintegrating 4 mg PO Q8H PRN (Reason: nausea and vomiting) Qty: 14 0RF multivitamin [Daily Multivitamin] Tablet 1 tablet PO DAILY Follow-up/Referrals: Ascencion Pelayo MD [Primary Care Provider] - 3 Days Time of Disposition: 10:04
[2025-02-02 09:52] VITALS: BP 107/64; PULSE 80; RESP 18; TEMP 36.4; O2SAT 100
--- OUTSIDE RECORDS SUMMARY | 2025-02-02 16:09 | XMS_ITS | Referral Summary ---
Author Organization [facility] Address [address] [place] [address] Care Team Providers Care Director Sales And Marketing Name Role Phone Ascencion Pelayo MD Primary Care Provider [phone] Allergies Active Allergy Reactions Criticality Noted Date Comments Meperidine Flushing (skin),Rash Medium 01/29/2014 Penicillins Stomach upset Low 02/20/2020 Medications multivitamin capsule daily Active omeprazole (PriLOSEC) 20 mg capsule Take 1 capsule (20 mg total) by mouth daily 3 Active gabapentin (NEURONTIN) 100 mg capsule Take 1 capsule (100 mg total) by mouth 3 (three) times a day 90 capsule 3 Active Additional Information Patient not taking.Reported on 09/11/2024 omeprazole (PriLOSEC) 40 mg capsule 4 Active buPROPion SR (ZYBAN) 150 mg 12 hr tablet Take 1 tablet (150 mg total) by mouth 2 (two) times a day 60 tablet 11 4 Active Additional Information Patient not taking.Reported on 09/11/2024 albuterol HFA (Ventolin HFA) 90 mcg/actuation inhaler Inhale 2 puffs every 6 (six) hours as needed for wheezing 1 each 3 4 Active tiotropium-olod ateroL (Stiolto Respimat) 2.5-2.5 mcg/actuation inhaler Inhale 2 puffs daily 1 each 3 4 Active Active Problems Problem Noted Date Diagnosed Date Nocturnal hypoxemia 01/31/2024 Simon's esophagus with esophagitis 01/31/2024 Non-seasonal allergic rhinitis due to pollen 06/2024 Cigarette nicotine dependence without complicati on 11/11/2023 Simple chronic bronchitis 11/11/2023 Chronic cough 11/11/2023 Chest wall pain 11/11/2023 Social History Tobacco Use Types Packs/Day Years Used Date Smoking Tobacco: Every Day Cigarettes Tobacco Cessation:Ready to Q uit: Not Asked; Counseling Given: Not Answered AUDIT-C Answer Date Recorded Q1: How often do you have a drink containing alc ohol? Never 07/15/2023 Average Number of Drinks Not on file 023 Q3: How often do you have si x or more drinks on one occasion? 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 Not on file Not on file Not on file Last Filed Vital Signs Vital Sign Reading Time Taken Comments Blood Pressure 118/80 09/11/2024 3:52 PM NUTRITION SPECIALIST Pulse 74 09/11/2024 3:52 PM NUTRITION SPECIALIST Temperature 36.9 C (98.5 F) 01/31/2024 3:00 PM CDT Respiratory Rate 18 09/11/2024 3:52 PM NUTRITION SPECIALIST Oxygen Saturation 99% 09/11/2024 3:52 PM NUTRITION SPECIALIST Inhaled Oxygen Concentration - - Weight 73.4 kg (161 lb 12.8 oz) 09/11/2024 3:52 PM NUTRITION SPECIALIST Height 162.6 cm (5' 4 ) 09/11/2024 3:52 PM NUTRITION SPECIALIST Body Mass Index 27.77 09/11/2024 3:52 PM NUTRITION SPECIALIST Plan of Treatment Not on file Insurance [facility] [place] Care Teams Director Sales And Marketing Relationship Specialty Start Date End Date Ascencion Pelayo MD PCP - General Emergency Medicine 07/01/23
--- OUTSIDE RECORDS SUMMARY | 2025-02-02 16:09 | XMS_ITS | Clinical Summary ---
Author Organization [facility] [place] Address [address] [place] [address] Care Team Providers Care Agricultural Sciences Professor Name Role Phone Ascencion Pelayo MD Primary Care Provider Allergies Active Allergy Reactions Criticality Noted Date [...] Chronic cough 11/11/2023 Chest wall pain 11/11/2023 Surgical History Surgery Date Site/Laterality Comments CERVICAL BIOPSY W/ LOOP ELECTRODE EXCISION Medical History Medical History Date Comments GERD (gastroesophageal reflux disease) Gastric reflux Arthropathy of cervical facet joint DDD (degenerative disc disease), cervical Numbness and tingling of both upper extremities 2022 Family History Medical History Relation Name Comments Cancer Father Clotting disorder Father Diabetes Father No Known Problems Mother Relation Name Status Comments Father Mother Social History Tobacco Use Types Packs/Day Years [...] on file Legal Sex Female 5:30 PM MUSIC ENGINEER Gender Identity Not on file Sexual Orientation Not on file 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 file Not on file Not on file Obstetrics History Last Filed Vital Signs Vital Sign Reading Time Taken Comments Blood Pressure 118/80 09/11/2024 3:52 PM MUSIC ENGINEER Pulse 74 09/11/2024 3:52 PM MUSIC ENGINEER Temperature 36.9 C (98.5 F) 01/31/2024 3:00 PM CDT Respiratory Rate 18 09/11/2024 3:52 PM MUSIC ENGINEER Oxygen Saturation 99% 09/11/2024 3:52 PM MUSIC ENGINEER Inhaled Oxygen Concentration - - Weight 73.4 kg (161 lb 12.8 oz) 09/11/2024 3:52 PM MUSIC ENGINEER Height 162.6 cm (5' 4 ) 09/11/2024 3:52 PM MUSIC ENGINEER Body Mass Index 27.77 09/11/2024 3:52 PM MUSIC ENGINEER Plan of Treatment Health Maintenance Due Date Last Done Comments Breast Cancer Screening-Mammogram 1982 Cervical Cancer Screening 1982 Depression Screening 1982 Hepatitis C Screening 1982 Varicella Vaccines (1 of 2 - 13+ 2-dose series) 1995 Hepatitis B Screening 02/10/2000 Regular Well Visit/Exam 18-64 02/10/2000 Pneumococcal vaccine <65 (1 of 2 - PCV) 2001 Influenza Vaccine (Season Ended) 2025 DTaP/Tdap/Td Vaccine (2 - Td or Tdap) 10/29/2028 10/29/2018 HPV Vaccines Aged Out No longer eligi ble based on patient's age to complete this topic Insurance Care Teams Agricultural Sciences Professor Relationship Specialty Start Date End Date Ascencion Pelayo MD PCP - General Emergency Medicine 07/01/23
--- OUTSIDE RECORDS SUMMARY | 2025-02-02 16:10 | XMS_ITS | Patient Health Record ---
Author Organization [facility] Address [address] [place] [address] Care Team Providers Care Community Service Officer Coordinator Name Role Phone Cece Crowley Primary Care Provider [phone] Allergies Allergen (clinical drug ingredient) Drug/Non Drug Allergy documented on EMR Reaction Allergy Type Onset Date Status pain medication (uncoded) Unknown Allergy Active meperidine Demerol Unknown Drug Allergy Active Reason For Referral No Information Medications Medication SIG (Take, Route, Frequency, Duration) Notes Start Date End Date Status Multivitamin - 1 tablet Orally Once a day Active Ondansetron HCl 4 MG 1 tablet as needed for medication side effects (nausea) Orally Once a day for 14 days 08/27/2022 Active Promethazine HCl 25 MG 1 Tablet Orally e very 6 hours Active Cyproheptadine HCl 4 MG 1 tablet Orally Once before bed as needed for nightmares for 30 days 09/14/2022 Not-Takin g FLUoxetine HCl 10 MG 1 capsule in the mo rning Orally Once a day for 30 days Active hydrOXYzine HCl 25 MG 1 - 2 tablets Oral ly every 6 hrs as needed for anxiety for 30 days Active Social History Tobacco Use: Social History Observation Description Date Details (start date - stop date) Current Smoker NA - NA Sex Assigned At : Social History Observation Description Sex Assigned At Female Dont use, Tobacco Use/Smoking Question Answer Notes Are you a current smoker How many cigarettes a day do you smoke? -20 Problems Problem Type SNOMED Code ICD Code Onset Dates Problem Status W/U Status Risk Notes Problem Tobacco user (570897314) Nicotine dependence, unspecified, uncomplicated (F17.200) Active confirmed Problem Spasm of back muscles (325279661) Muscle spasm of back (M62.830) Active confirmed Problem Posttraumatic stress disorder (22244748) PTSD (post-traumatic stress disorder) (F43.10) Active confirmed Problem Generalized anxiety disorder (25881325) RAULITO (generalized anxiety disorder) (F41.1) Active confirmed Problem Visual impairment (029516036) Vision impairment (H54.7) Active confirmed Problem Impacted cerumen of both ears (0579920947626420 ) Impacted cerumen of both ears (H61.23) Active confirmed Problem Recurrent major depression (71432750) Major depressive disorder, recurrent episode with anxious distress (F33.9) Active confirmed Plan Of Treatment No Information Insurance Providers Payer Name Payer Address Payer Phone Subscriber Number Group Number Insured Name Patient Relationship to Insured Coverage Start Date Coverage End Date [employer] [address] [place] [phone] [id number] Donna Perez Self - patient is the insured 2 [employer] [address] [place] [address] [id number] Donna Perez Self - patient is the insured 2 Medical (General) History Medical History History ICD Code anxiety ptsd nicotine dependence Surgical History Surgery Date(Month/Year) Leep Uterus and ovary growth Colposcopy 2 inch tear in colon Hospitalization History Reason Date(Month/Year)
--- OUTSIDE RECORDS SUMMARY | 2025-02-02 16:10 | XMS_ITS | Data Portability ---
Author Organization [facility] Address [address] [place] [address] Care Team Providers Care Assembler Arranger Name Role Phone NEIL TALBOT Primary Care Provider Assessment Encounter Date Assessment Date Assessment LastModified by Organization Details LastModified Time 11/03/2023 11/03/2023 This patient is a 43-year-old female who presents for severe menorrhagia. She has very bad bleeding. We would previously agreed to endometrial ablation for this difficult bleeding. We are unable to do it at the time for Nonmedical reasons. we have agreed this time to proceed with endometrial ablation and laparoscopic bilateral salpingectomy. She understands the procedure in great detail. We discussed risk. She understands injuries may occur that result in hospitalization, more surgery, and severe illness. We will proceed with surgery. We made a decision to perform surgery today. We spent over 40 minutes [id number]. More 50% was Counseling [email or web address] Not available 11/03/2023 17:14:30 10/04/2024 10/04/2024 Annual gynecological exam performed. Patient will come back in a year unless there are new symptoms. [email or web address] Not available 10/04/2024 11:00:15 Plan of Treatment Reminders Order Date Submit Date Provider Last Modified By Organization Details Last Modified Time Details Appointments None recorded. Lab None recorded. Referral None recorded. Procedures None recorded. Surgeries robotic assisted hysterectom y with salpingecto my (SURG) 2024 0409 025 [facility] [facility] [address] [address], [place], [address], 02/03/202 5 16:48:08 hysteroscop y, with endometrial ablation (SURG) 2023 024 [email or web address] [facility], [address], [place], [address], 5 16:25:33 salpingecto my, laparoscopi c (SURG) 2023 024 [facility], [address], [place], [address], 4 11:08:34 Imaging US, transvagina l 2024 025 [email or web address] [facility], [address], [address], [place], [address], 5 14:33:57 US, pelvis, complete 2024 025 CHEYANNE [facility], [address], [place], [address], 5 04:01:49 US, transvagina l 2023 024 [email or web address] [facility], [address], [place], [address], 4 22:06:35 Medication Orders None recorded. Patient TargetsNo targets recorded. Patient InstructionsNo instructions recorded. Reason for Referral None Reported. Results Created Date Observation Date Name Description Value Unit Range Abnormal Flag Note LastModifiedBy Organization Detail LastModifiedTime 10/04/1910/04/2024 IMAGE GUIDE D PAP AND HPV REGAR DLESS image guided Pap, HPV regardless of Pap result SEE RESULT S BELOW CASE REPOR T: Cytol ogy Gynec ologi radha Repor t Case: [id number] Autho rihelen g Provi dora: Marquita Jones NP Colle cted: 10/04 1130 Order ing Locat ion: [place] [facility] Recei bakari: 10/05 0847 First Scree n: Justyn r, Angela , CT Speci men: Scree stacey Pap - Image d, Cervi x STATE MENT OF ADEQU ACY: Satis facto ry for evalu ation Trans forma tion zone compo nent prese nt Cr whitt ring infla mmati on prese nt. ----- ----- ----- ----- ----- ----- ----- ----- ----- ----- ----- ----- ----- ----- ----- ----- ----- ---- FINAL DIAGN OSIS: Negat ilana for Intra epith surekha jaime or David baker ([facility]) . Elect comfort andrade katt d by Angela hernandez, CT on 2024 at 1511 INDUSTRIAL THERAPIST ----- ----- ----- ----- ----- ----- ----- ----- ----- ----- ----- ----- ----- ----- ----- ----- ----- ---- HPV RESUL TS: HPV mRNA E6/E7 : No HPV mRNA Detec latesha NOTE: This high risk HPV mRNA assay detec ts fourt een high- risk HPV types (16, 18, 31, 33, 35, 39, 45, 51, 52, 56, 58, 59, 66, 68) witho ut diffe renti ation . COMME NT: This speci men was revie wed by a Cytot echno logis t and/o r Patho logis t (as indic ated in this repor t) after evalu ation using the Thinp rep Imagi ng Syste m. CLINI RADHA INFOR MATIO N: Menst rual Statu s: LMP (if appli cable ): Clini radha Histo ry/Pr eviou s Pap: Type of Neopl elsie (if appli cable ): Signi fican t Clini radha Findi ngs: Other Histo ry: Hormo mindy (if appli cable ): PAP EDUCA MARY L NOTE: The Pap Test is a scree stacey test with an inher ent false negat ilana rate. Liqui d-bas ed sampl ing may decre ase, but will not elimi hunter, false negat ilana resul ts. A negat ilana resul t does not precl ude the prese nce and/o r devel opmen t of disea se, since the prese nce of abnor mal cells in the sampl e depen ds on the locat ion of the lesio n and sampl ing techn ique. Bree nued regul ar scree stacey is the best metho d of cance r preve ntion . If repor latesha cytol ogic findi ng do not corre late with physi radha and/o r histo rical findi ngs, furth er inves tigat ion is recom leroy d, as clini lanette cardozo nted. Not Available [facility] (Lab) [address], [place], [address], 10/12/2024 16:14:35 10/27/19 24 10/25/2023 MAMMO , diagn ostic , digit al, bilat eral No observ ation record ed. [facility] [address] [address], [place], [address], 10/28/2023 16:21:40 11/02/19 24 11/03/2023 US, trans vagin al No observ ation record ed. weston [facility] [address], [place], [address], 11/03/2023 12:27:47 11/02/19 24 11/02/2023 US, trans vagin al No observ ation record ed. chikis [address], [facility], [place], [address], 11/03/2023 17:30:48 10/11/19 25 10/11/2024 US, trans vagin al No observ ation record ed. [facility] [address], [place], [address], 10/11/2024 18:48:38 10/11/19 25 10/11/2024 US, trans vagin al No observ ation record ed. [email or web address] [facility] [address], [place], [address], 10/11/2024 20:12:44 Result Notes None recorded. Problems Name Problem SNOMED Code Status Onset Date Resolution Date Notes Provider Name and Address Organization Details Recorded Time Human papillom a virus infectio n 455250452 Completed 201910/21/2020 high risk + Grace Lange [facility] 10:16:47 Low lying placenta 563009074 Completed 04/10/2020 resolved Ruddy Augustizzle [facility] 13:28:31 Abnormal cervical Papanico laou smear 797711991 Active 2019 HPV18, HPV high risk / 2019 lgsil HPV high risk Grace Nazario [facility], [facility] 0 16:10:35 Gastroes ophageal reflux disease 563099776 [facility]pleted [facility] 13:28:32 Acute vaginiti s 06890530 Completed 201610/21/2020 Acute vaginiti s;Practi ce ID: 0001 Grace Lange [facility] 10:15:43 Postcoit al finding [id number] Completed 201610/21/2020 Postcoit al and contact bleeding ;Practic e ID: 0001 Grace Lange [facility] 10:17:02 Pregnanc y test negative [id number] Completed 201610/21/2020 Encounte r for pregnanc y test, result negative ;Practic e ID: 0001 Grace Lange [facility], [facility] 10:17:[address] Concept Completed 201710/21/2020 Encntr for technical information specialist exam (general ) (routine ) w/o abn findings ;Practic e ID: 0001 Grace hendrix, [facility] 10:17:23 Pelvic and perineal pain 700286916 Completed 201810/21/2020 Pelvic and perineal pain;Pra ctice ID: 0001 Grace hendrix, [facility] 10:16:59 Procedur e on genitour inary system Completed 201810/21/2020 Encounte r for surgical aftcr followin g surgery on the sys;Prac monse ID: 0001 Grace hendrix [facility] 10:18:02 Postoper ative care Completed 201810/21/2020 Encounte r for surgical aftcr followin g surgery on the sys;Prac monse ID: 0001 Grace hendrix, [facility] 10:17:04 Urinary tract infectio us disease 67610700 Completed 201610/21/2020 UTI;Silvano rded Elsewher e: No Locat ion: [facility] S ource: EHR Dental Resident luis m: N Practi ce ID: 0001 Leonardo lable Time: 04:15:00 PM Grace hendrix [facility] 10:17:45 Infectio n screenin g Completed 201610/21/2020 Encounte r for screenin g for oth infec/pa rastc diseases ;Recorde d Elsewher e: No Locat ion: [facility] S ource: EHR Dental Resident luis m: N Practi ce ID: 0001 Leonardo lable Time: 03:45:00 PM Grace hendrix [facility] 1 10:16:56 Blood leukocyt e number above referenc e range [id number] Completed 201610/21/2020 Elevated white blood cell count, unspecif ied;Silvano rded Elsewher e: No Locat ion: [facility] carmenza [facility] S ource: EHR Dental Resident luis m: N Yesenia ce ID: 0001 Leonardo lable Time: 04:15:00 PM Grace Lange simeon, [facility] 1 10:16:53 Evaluati on finding Completed 201610/21/2020 Hematuri a, unspecif ied;Silvano rded Elsewher e: No Locat ion: [facility] S ource: E[facility] Dental Resident luis m: N Yesenia ce ID: 0001 Leonardo lable Time: 04:15:00 PM Grace Lange simeon, [facility] 1 10:16:09 Anorecta l disorder [id number] Completed 201010/21/2020 Other specifie d disorder s of rectum and anus;Rec orded Elsewher e: No Locat ion: [facility] S ource: E[facility] Dental Resident luis m: N Yesenia ce ID: 0001 Leonardo lable Time: 03:45:00 PM Grace Lange simeon, [facility] 1 10:15:47 Syphilis test finding [id number] Completed 201610/21/2020 Encntr screen for infectio ns w sexl mode of transmis s;Record ed Elsewher e: No Locat ion: [facility] S ource: [facility] Dental Resident luis m: N Kishati ce ID: 0001 Leonardo lable Time: 03:45:00 PM Grace Lange simeon [facility] 1 10:17:36 High risk pregnanc y care Completed 201310/21/2020 Supervis ion of other high-ris k pregnanc y;Record ed Elsewher e: No Locat ion: [facility] S ource: [facility] Dental Resident luis m: N Practi ce ID: 0001 Leonardo lable Time: 10:15:00 AM Grace Lange [facility], [facility] 1 10:16:14 Cytologi c finding [id number] Completed 201210/21/2020 Papanico laou smear of cervix with high grade squamous intraepi thelial lesion (HGSIL); Recorded Elsewher e: No Locat ion: [facility] S ource: [facility] Dental Resident luis m: N Kishati ce ID: 0001 Leonardo lable Time: 03:30:00 PM Grace Lange [facility], [facility] 1 10:16:02 Uterine size for dates discrepa ncy 098697941 Completed 201210/21/2020 UTERINE SIZE TREVA-ANTE PAR;Silvano rded Elsewher e: No Locat ion: [facility] Kishati ce ID: 0001 Leonardo lable Time: 01:30:00 PM Grace Lange [facility], [facility] 1 10:17:48 Hemorrho ids [id number] Active 2014 Hemorrho id;Recor ded Elsewher e: No Locat ion: [facility] S ource: [facility] Dental Resident luis m: N Kishati ce ID: 0001 Leonardo lable Time: 01:00:00 PM Not Available [facility] 0 16:49:04 Spontane ous ecchymos is [id number] Completed 201410/21/2020 Spontane ous ecchymos es;Recor ded Elsewher e: No Locat ion: [facility] S ource: [facility] Dental Resident luis m: N Kishati ce ID: 0001 Leonardo lable Time: 01:00:00 PM Grace Lange [facility] 1 10:17:33 Routine antenata l care Completed 201310/21/2020 Supervis ion of other normal pregnanc y;Record ed Elsewher e: No Locat ion: [facility] S ource: [facility] luis m: N Kishati ce ID: 0001 Leonardo lable Time: 02:30:00 PM Grace hendrix [facility] 1 10:17:59 Screenin g for malignan t neoplasm of cervix Completed 201210/21/2020 Screenin g for malignan t neoplasm s of the cervix;R ecorded Elsewher e: No Locat ion: [facility] S ource: [facility] luis m: N Kishati ce ID: 0001 Leonardo lable Time: 10:15:00 AM Grace hendrix, [facility] 1 10:18:05 Ultrason ography Completed 201310/21/2020 Antenata l screenin g for malforma tion using ultrason ics;Silvano rded Elsewher e: No Locat ion: [facility] S ource: [facility] luis m: N Kishati ce ID: 0001 Leonardo lable Time: 10:30:00 AM [facility] 10:17:42 Antenata l screenin g Completed 201310/21/2020 Antenata l screenin g for malforma tion using ultrason ics;Silvano rded Elsewher e: No Locat ion: [facility] N Kishati ce ID: 0001 Leonardo lable Time: 10:30:00 AM Grace hendrix [facility] 1 10:15:50 Congenit al malforma tion [id number] Completed 201310/21/2020 Antenata l screenin g for malforma tion using ultrason ics;Silvano rded Elsewher e: No Locat ion: [facility] N Kishati ce ID: 0001 Leonardo lable Time: 10:30:00 AM Grace hendrix [facility] 1 10:15:56 Ulcerati on of vulva 96561489 Completed 201510/21/2020 Ulcerati on of vulva;Re corded Elsewher e: No Locat ion: [facility] S ource: [facility] Resident luis m: N Practi ce ID: 0001 Leonardo lable Time: 01:45:00 PM Grace Lange simeon, [facility] 1 10:17:40 Amenorrh ea 47611763 Completed 201310/21/2020 Absence of menstrua tion;Rec orded Elsewher e: No Locat ion: [facility] S ource: [facility] Resident luis m: N Practi ce ID: 0001 Leonardo lable Time: 02:30:00 PM Grace Lange simeon, [facility] 10:15:45 Pregnanc y test positive 081202545 Completed 201210/21/2020 Pregnanc y examinat ion or test, positive result;R ecorded Elsewher e: No Locat ion: [facility] S ource: [facility]ident luis m: N Practi ce ID: 0001 Leonardo lable Time: 10:15:00 AM Grace Lange simeon [facility] 10:17:11 Speciali zed medical examinat ion Completed 201210/21/2020 Gynecolo gical Examinat ion;Silvano rded Elsewher e: No Locat ion: [facility] S ource: [facility] Resident luis m: N Practi ce ID: 0001 Leonardo lable Time: 10:15:00 AM Grace Lange simeon [facility] 10:17:30 Proteinu donis [id number] Completed 201010/21/2020 Proteinu donis;Prac monse ID: 0001 Grace Lange simeon [facility] 10:17:56 Anxiety state 622051111 Active 2010 Anxiety state, unspecif ied;Prac monse ID: 0001 Not Available [facility] 0 16:49:07 Cytologi c finding 545543236 Completed 201010/21/2020 Pap Abnormal LGSIL;Pr actice ID: 0001 Grace Lange simeon, [facility] 1 10:16:00 Genital herpes simplex 43336619 Active 2010 Genital herpes, unspecif ied;Prac monse ID: 0001 Not Available [facility] 0 16:49:07 Ill-defi rashmi intestin al infectio n Completed 201010/21/2020 No Show Fee;Prac monse ID: 0001 Grace Lange [facility] 1 10:16:50 Pregnanc y 05281808 Completed 201910/20/2020 Ruddy David [facility] 1 13:28:36 Past pregnanc y history of pre-ecla mpsia [id number] 9100 Completed per mfm take baby asa Ruddy Frankie [facility] 1 13:28:32 Blood coagulat ion disorder 86007911 Completed saw mfm does not need anticoag ulation meds Ruddy David [facility] 1 13:28:31 History of loop electros urgical excision procedur e [id number] 102 Completed MFM - 02/19 noted CL at 16wks, pt no showed. CL is WNL - per Daly 05/12 no other ultrasou nds are needed. Ruddy David [facility] 1 13:28:32 Problem Notes None recorded. Procedures Surgical History Date Name Laterality Status Provider Name and Address Organization Details Recorded Time 024 SALPINGECTOMY, LAPAROSCOPIC (SURG) completed Gregg Hoffman [facility] 12/28/2023 15:06:07 024 Date of Last Mammogram completed [facility] 10/04/2024 11:04:05 023 Date of Last Pap Smear completed [facility] 10/04/2024 10:55:21 020 Colposcopy completed Jorge Luis Thomas MD [address], [place], [address], [facility] 04/08/2020 11:06:00 019 Ovarian Cystectomy completed [facility] 01/21/2020 17:25:49 018 hemorrhoidectomy completed [facility] 01/21/2020 17:24:17 017 Colposcopy completed [facility] 12/14/2022 20:00:50 017 Colposcopy completed [facility] 12/14/2022 20:01:38 017 hemorrhoidectomy completed [facility] 01/21/2020 17:24:41 013 Colposcopy completed [facility] 12/14/2022 20:01:44 013 LEEP completed [facility] 01/21/2020 17:24:53 001 Dilation and Curettage completed [facility] 01/21/2020 17:26:33 000 Dilation and Curettage completed [facility] 12/14/2022 20:01:25 endometrial ablation completed GARIMA Pratt [address], [place], [address], [place] [facility] 10/04/2024 14:00:31 Imaging Results Imaging Date Name Status LastModified by Organization Details LastModified Time 10/25/2023 MAMMO, diagnostic, digital, bilateral completed CHEYANNE [facility] [address], [place], [address], 10/28/2023 16:21:40 11/03/2023 US, transvaginal completed kyouck [facility] e [address], [place], [address], 11/03/2023 12:27:47 11/02/2023 US, transvaginal completed llamay [facility] [address], [place], [address], 11/03/2023 17:30:48 10/11/2024 US, transvaginal completed kyouck [facility] [facility] [address], [place], [address], 10/11/2024 18:48:38 10/11/2024 US, transvaginal completed [email or web address] [facility], [place], [address], 10/11/2024 20:12:44 Procedure Notes None recorded. Medical Equipment None Reported. Allergies Allergen ID Allergen Name Allergen Category Reaction Reaction Severity Criticality Documentation Date Start Date Code Code System Note Provider Name and Address Organization Details Recorded Time 34951 Demerol medicatio n Not available Not available Not available 10/22/2020 51415 1 RxNorm Grace hendrix, [facility] 14:40:13 75765 amoxicill in medicatio n Not available Not available Not available 10/22/2020 723 RxNorm Grace hendrix, [facility] 1 14:40:21 51253 Product containin g penicilli n (product) medicatio n Not available Not available Not available 10/22/2020 46943 8001 SNOMED Grace Lange [facility] 1 14:40:42 267 meperidin e medicatio n Not available Not available Not available 01/21/2020 6754 RxNorm Kalie Remy [facility] 0 17:23:21 Medications Name Sig Start Date Stop Date Status Note LastModified by Organization Details LastModified Time cyclobenz aprine 10 mg tablet 02/17 completed Not Available Not Available Not Available nystatin 100,000 unit/mL oral suspensio n TAKE 4 ML BY MOUTH FOUR TIMES DAILY FOR 14 DAYS 10/04 completed Not Available Not Available Not Available doxycycli ne hyclate 100 mg capsule 10/04 completed Not Available Not Available Not Available clindamyc in HCl 300 mg capsule TAKE 1 CAPSULE BY MOUTH EVERY 6 HOURS UNTIL GONE 12/02 completed Not Available Not Available Not Available trazodone 50 mg tablet 12/02 completed Not Available Not Available Not Available azithromy chrissy 250 mg tablet TAKE 2 TABLETS BY MOUTH FOR 1 DAY THEN TAKE 1 TABLET BY MOUTH DAILY FOR 4 DAYS 10/04 completed Not Available Not Available Not Available ibuprofen 800 mg tablet TAKE 1 TABLET BY MOUTH THREE TIMES DAILY NEEDED FOR PAIN 12/02 completed Not Available Not Available Not Available fluconazo le 150 mg tablet take 1 tablet every 72 hours 10/22 completed Not Available Not Available Not Available hydrocodo ne 5 mg-acetam inophen 325 mg tablet 02/17 completed Not Available Not Available Not Available prazosin 1 mg capsule TAKE 1 CAPSULE BY MOUTH EVERY DAY AT BEDTIME 12/02 completed Not Available Not Available Not Available ondansetr on HCl 8 mg tablet Take 1 tablet twice a day by oral route. 10/22 completed Not Available Not Available Not Available ondansetr on HCl 4 mg tablet TAKE 1 TABLET BY MOUTH EVERY DAY FOR 14 DAYS NEEDED FOR SIDE EFFECTS OR NAUSEA 12/02 completed Not Available Not Available Not Available ceftriaxo ne 250 mg solution for injection inject (250MG) by intramus cular route as a single dose 01/07 completed Prescrib ed Elsewher e: No Locat ion: [facility] odify By: deisi alvarez DateTime : 10/09/19 13 10:01:47 AM Not Available Not Available Not Available clindamyc in HCl 150 mg capsule TAKE 3 CAPSULES BY MOUTH EVERY 8 HOURS FOR 7 DAYS 12/02 completed Not Available Not Available Not Available metronida zole 500 mg tablet Take 1 tablet twice a day by oral route for 7 days. 02/17 completed Not Available Not Available Not Available sulfameth oxazole 800 mg-trimet hoprim 160 mg tablet TAKE 1 TABLET BY MOUTH EVERY 12 HOURS 12/02 completed Not Available Not Available Not Available peg-elect rolyte solution 420 gram oral solution TAKE DIRECTED BY OFFICE 10/04 completed Not Available Not Available Not Available omeprazol e 40 mg capsule,d elayed release active Not Available Not Available Not Available vancomyci n 125 mg capsule TAKE 1 CAPSULE BY MOUTH EVERY 6 HOURS 09/28 completed Not Available Not Available Not Available Macrobid 100 mg capsule take 1 capsule by oral route every 12 hours with food 06/23 completed Prescrib ed Elsewher e: No Locat ion: [facility] odify By: orly pradhan DateTime : 06/14/20 17 10:36:00 AM Not Available Not Available Not Available cyprohept adine 4 mg tablet 12/02 completed Not Available Not Available Not Available oxycodone -acetamin ophen 5 mg-325 mg tablet TAKE 1 TABLET BY MOUTH EVERY 4 HOURS NEEDED FOR PAIN 10/04 completed Not Available Not Available Not Available Metrogel Vaginal 0.75 % (37.5 mg/5 gram) insert 1 applicat orful by vaginal route every day at bedtime for 5 nights 06/08 completed Prescrib ed Elsewher e: No Locat ion: [facility] odify By: amnatan alvarez DateTime : 05/24/20 17 02:18:49 PM Not Available Not Available Not Available cephalexi n 500 mg capsule TAKE 1 CAPSULE BY MOUTH EVERY 8 HOURS 12/02 completed Not Available Not Available Not Available promethaz ine 25 mg tablet TAKE 1/2 TABLET BY MOUTH EVERY 6 HOURS NEEDED 10/04 completed Not Available Not Available Not Available fluoxetin e 10 mg capsule 09/28 completed Not Available Not Available Not Available hydroxyzi ne HCl 25 mg tablet 09/28 completed Not Available Not Available Not Available gabapenti n 100 mg capsule 09/28 completed Not Available Not Available Not Available methylpre dnisolone 4 mg tablets in a dose pack 02/17 completed Not Available Not Available Not Available albuterol sulfate HFA 90 mcg/actua tion aerosol inhaler INHALE 2 PUFFS BY MOUTH EVERY 6 HOURS NEEDED FOR WHEEZING active Not Available Not Available No t Available Vitamin D2 1,250 mcg (50,000 unit) capsule take 1 capsule by oral route every week 08/12 completed Prescrib ed Elsewher e: No Locat ion: [facility] odify By: orly pradhan DateTime : 02/20/20 14 10:11:20 AM Not Available Not Available Not Available fluoxetin e 20 mg capsule TAKE 1 CAPSULE BY MOUTH EVERY DAY 12/02 completed Not Available Not Available Not Available fluticaso ne propionat e 50 mcg/actua tion nasal spray,miguel pension ADMINIST ER 1 SPRAY IN EACH NOSTRIL TWICE DAILY 10/04 completed Not Available Not Available Not Available naproxen 500 mg tablet 02/17 completed Not Available Not Available Not Available hydroxyzi ne pamoate 25 mg capsule 12/02 completed Not Available Not Available Not Available escitalop ernesto 10 mg tablet TAKE 1 TABLET BY MOUTH EVERY DAY 12/02 completed Not Available Not Available Not Available Liana 0.35 mg tablet take 1 tablet by oral route every day 06/08 completed Prescrib ed Elsewher e: No Locat ion: [facility] odify By: amkbrandin keysuntscout DateTime : 08/12/20 15 01:00:00 PM Not Available Not Available Not Available cyclobenz aprine 5 mg tablet 12/02 completed Not Available Not Available Not Available aspirin 10/22 completed Not Available Not Available Not Available 10/22 completed Not Available Not Available Not Available Anson-Alex uo DHA 29 mg-1 mg-400 mg oral pack take 1 by Oral route every day 08/12 completed Prescrib ed Elsewher e: No Locat ion: [facility] odify By: orly pradhan DateTime : 02/13/20 14 03:11:00 PM Not Available Not Available Not Available bupropion HCl 150 mg tablet,12 hr sustained -release( smoking deterrent ) 10/04 completed Not Available Not Available Not Available Anusol-HC 2.5 % topical cream with perineal applicato r apply by topical route 2 times every day to the affected area(s) 06/08 completed Prescrib ed Elsewher e: No Locat ion: [facility] odify By: deisi alvarez DateTime : 08/12/20 15 01:00:00 PM Not Available Not Available Not Available Slynd 4 mg (28) tablet TAKE 1 TABLET BY MOUTH EVERY DAY 12/02 completed Not Available Not Available Not Available Daily-Vit e (with folic acid) 400 mcg tablet active Not Available Not Available Not Available Vitals Date Recorded Body height Body mass index (BMI) Body weight Systolic blood pressure Diastolic blood pressure Provider Name and Address Organization Details Last Updated DateTime 11/03/2023 160.02 cm 29.4 kg/m2 87984.33 g 119 mm[Hg] 80 mm[Hg] Parul Hull [facility] 4 16:41:33 Date Recorded Body height Body mass index (BMI) Body weight Systolic blood pressure Diastolic blood pressure Provider Name and Address Organization Details Last Updated DateTime 10/04/2024 160.02 cm 29.2 kg/m2 78929.74 g 116 mm[Hg] 77 mm[Hg] Karlie Franconey [facility] 5 11:01:13 Date Recorded Body height Body mass index (BMI) Body weight Systolic blood pressure Diastolic blood pressure Provider Name and Address Organization Details Last Updated DateTime 10/12/2024 160.02 cm 29.2 kg/m2 14485.74 g 113 mm[Hg] 70 mm[Hg] Wen Clay [facility] 10:20:11 Social History Question Answer Notes LastModified by Organizat ion Details LastModified Time Tobacco Smoking Status Current Every Day Smoker Grace hendrix, [facility] 12/02/2022 11:37:30 What Is Your Level Of Alcohol Consumption? Occasional [email or web address] Information not available 10/22/2020 If You Are , What Was Your Level Of Alcohol Consumption Prior To ? Occasional [email or web address] Information not available 12/02/2022 How Many Years Have You Consumed Alcohol? 0 [email or web address] Information not available 12/02/2022 Are You Blind Or Do You Have Difficulty Seeing? No [email or web address] Information not available 12/02/2022 What Is Your Level Of Caffeine Consumption? Heavy [email or web address] Information not available 10/22/2020 In The 14 Days Before Symptom Onset, Have You Had Close Contact With A Laboratory-confir med COVID-19 While That Case Was Ill? No [email or web address] Information not available 12/02/2022 In The 14 Days Before Symptom Onset, Have You Had Close Contact With A Person Who Is Under Investigation For COVID-19 While That Person Was Ill? No Information not available 12/02/2022 Have You Been To An Area Known To Be High Risk For COVID-19? No [email or web address] Information not available 12/02/2022 Are You Deaf Or Do You Have Serious Difficulty Hearing? No Information not available 09/28/2023 What Type Of Diet Are You Following? REGULAR [email or web address] Information not available 12/02/2022 Which Illicit Or Recreational Drugs Have You Used? Marijuana Information not available 12/02/2022 Do You Or Have You Ever Used E-cigarettes Or Vape? Never Used Electronic Cigarettes [email or web address] Information not available 12/02/2022 What Is The Highest Grade Or Level Of School You Have Completed Or The Highest Degree You Have Received? 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 3 Information not available 12/02/2022 On Those Days That You Engage In Moderate To Strenuous Exercise, How Many Minutes, On Average, Do You Exercise? 60 Information not available 12/02/2022 Are There Any Guns Present In Your Home? No Information not available 12/02/2022 How Many Years Have You Used Illicit Or Recreational Drugs? 20 [email or web address] Information not available 12/02/2022 What Was The Date Of Your Most Recent Tobacco Screening? 10/22/2020 [email or web address] Information not available 12/02/2022 Have You Ever Been Counseled For Unhealthy Alcohol Use? No [email or web address] Information not available 12/02/2022 Do You Use Protection During Sex? No [email or web address] Information not available 12/02/2022 Do You Use Your Seat Belt Or Car Seat Routinely? Yes [email or web address] Information not available 12/02/2022 Do You Have Smoke And Carbon Monoxide Detectors In Your Home? Yes [email or web address] Information not available 12/02/2022 At What Age Did You Start Smoking Tobacco? 15 [email or web address] Information not available 10/22/2020 Do You Or Have You Ever Used Smokeless Tobacco? Never Used Smokeless Tobacco [email or web address] Information not available 12/02/2022 How Much Tobacco Do You Smoke? 1 PPD [email or web address] Information not available 10/22/2020 Do You Feel Stressed (tense, Restless, Nervous, Or Anxious, Or Unable To Sleep At Night)? [id number] [email or web address] Information not available 12/02/2022 Do You Use Any Illicit Or Recreational Drugs? No [email or web address] Information not available 12/02/2022 Do You Use Sunscreen Routinely? No [email or web address] Information not available 12/02/2022 Has Tobacco Cessation Counseling Been Provided? No [email or web address] Information not available 12/02/2022 Have You Used IV Drugs? No [email or web address] Information not available 10/22/2020 Do You Or Have You Ever Used Any Other Forms Of Tobacco Or Nicotine? No [email or web address] Information not available 12/02/2022 Sex: Unknown Functional Status Question Answer Note LastModified by Organizat ion Details LastModified Time Do you have difficulty walking or climbing stairs? No Information not available 09/28/2023 Are you able to walk? YESWOREST [email or web address] Information not available 12/02/2022 Are you able to care for yourself? Yes Information not available 09/28/2023 Do you have difficulty dressing or bathing? No Information not available 09/28/2023 What is your exercise level? Moderate [email or web address] Information not available 01/22/2020 Mental Status None recorded. Family History Relationship Description Onset Age of this Age Resolved Age Notes LastModified by Organization Details LastModified Time Brother Diabetes mellitus [email or web address] Not available 2019 17:21:43 Paternal Grandfather Diabetes mellitus jgumber Not available 2019 17:21:43 Maternal Grandfather Diabetes mellitus jgumber Not available 2019 17:21:43 Maternal Uncle Family history of cancer of colon Not available 2024 17:22:53 Mother Family history of malignant neoplasm cervic al cancer [email or web address] Not available 10/11/2024 17:22:53 Father Family history of malignant neoplasm of prostate [email or web address] Not available 2024 17:22:53 Medical History Condition Response Allergies (Food, seasonal, environmental ) N Other Y Drug/Latex Allergies/Reactions Y Blood Transfusion N Breast Cancer N Dermatologic Disorders N Lung Disease N Defects or Inherited Disease N Breast Problem N Gestational Diabetes N Hematologic disorders N Anesthesia Complications N History of STI Y Deep Vein Thrombosis N Polycystic ovary syndrome N Anxiety Disorder Y Autoimmune disease N Arthritis N Polyps N Infertility N Acid Reflux (GERD) N History of abnormal pap Y Cancer N Varicosities N Stroke N Neurologic/Epilepsy N Endometriosis N High Cholesterol N Fibromyalgia N Headaches N Kidney Disease N Heart Problems N Thyroid Problems N Kidney or Bladder Problems N GI Problems Y Eating Disorder N Anemia N Art (IVF or FET) N Psychiatric Illness N Ovarian Cancer N Diabetes N Pulmonary (TB, Asthma) N Hepatitis/Liver Disease N No Past Medical History N Eczema N Urinary Tract Infection N Abuse/Domestic Violence N Asthma N Trauma/Violence N Depression/ depression Y Heart Disease N Pre-Eclampsia N Hypertension Y Osteoporosis N Thrombophilias N Gynecological History Statement/Question Response Date of Last Mammogram 10/25/2023 Flow Moderate Date of LMP 10/04/2023 N Was last menstrual period normal N STIs/STDs Yes Date of Last Colonoscopy Desired Control Method Hysterectom y Abnormal Pap Yes On BCP's at Conception? N HPV Vaccine N Colposcopy 06/09/2017 Duration of Flow (days) 10 Current Control Method Tubal Ligat ion Age at First Child 15 Are cycles usually normal N Frequency of Cycle (Q days) Sexually Active? Y Menses Monthly Y Date of DEXA bone scan Age of first menstrual cycle 14 Date of Last Pap Smear 12/02/2022 Sexual Problems? Y LMP Unknown N 01/22/2020 Obstetrics History GPAL:G 7 P 2 0 5 2 Type Value Full Term 2 Induced 1 Spontaneous 4 Living 2 Total 7 Past Encounters Encounter ID Performer Location Encounter Start Date Encounter Closed Date Diagnosis/Indication Diagnosis SNOMED-CT Code Diagnosis ICD10 Code Diagnosis Note [id number] Maryjo Combs [facility] [address] [address] 01/22/2020 15:49:33 01/22/2020 16:45:18 Gynecologic examination 30504244 Z01.419 test positive 974748960 Z32.01 Risk factors addressed: Tobacco Cessation, Safe Sexual Practices, environmen marcin, work hazards, travel restrictio ns, seat belt use.Eat a health well balanced diet, avoid alcohol, tobacco, and street drugs. Engage in daily low impact exercise, avoid temperatur e extremes, and cat, rodent, and bird feces.Avoi d travel to areas where zika virus is a concern.Fi rst look offered to patient. First look accepted by patient and will be scheduled. Pt plans to have NIPT drawn at that time. Sequential Screen handout given and discussed with patient. ildbirth classes recommende d.New OB sheet given. History of LEEP. Pt has had a full term vaginal delivery after the LEEP procedure. History of mthfr mutations and low protein S. This was found in previous . MFM consult was done at that time. Pt is currently taking baby aspirin and folic acid. I would like another mfm consult to see if any recommenda tions have changed since this was 6 years ago. Task sent to Johanne to schedule. 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 She will not be riding during the . Discussed precaution s. If previous , counseling .Pt verbalizes that she understand s the importance of above instructio ns.All questions were answered. Patient reminded to have annual well woman examinatio n and address [facility] . [id number] MD Gladis Duckworth [address] [address] 02/18/2020 13:48:05 02/18/2020 14:33:15 screening [id number] Z36.82 [id number] MD Gladis Duckworth [address] [address] 02/18/2020 13:48:50 02/18/2020 15:30:38 screening 699470595 Z36.89 Routine an tenatal care 145659661 Z34.81 [id number] MD Gladis Duckworth [address] [address] 03/25/2020 16:01:38 03/31/2020 11:00:52 [id number] MD Gladis Duckworth [address] [address] 03/20/2020 10:15:30 03/20/2020 11:02:08 Routine care 215157482 Z34.81 [id number] MD Gladis Duckworth [address] [address] 03/20/2020 12:30:30 03/20/2020 13:36:37 Medical examination for suspected condition 287859441 Z03.75 [id number] MD Gladis Duckworth [address] [address] 04/08/2020 10:26:56 04/08/2020 13:15:07 Low grade squamous intraepithelial lesion on cervical Papanicolaou smear 1858852161 9105 R87.612 [id number] MD Gladis Duckworth [address] [address] 04/10/2020 15:00:11 04/10/2020 17:03:25 screening for malformation 180987673 Z36.3 [id number] [address] [address] 04/10/2020 15:00:42 04/10/2020 16:54:45 Routine care 993263526 Z34.92 [id number] [facility] [address] [address] 05/15/2020 15:29:35 05/21/2020 23:22:06 Routine care 948267405 Z34.92 [id number] Brisa Perkins [facility] [address] [address] 06/05/2020 11:06:55 06/05/2020 11:54:39 Routine care 264594752 Z34.93 [id number] Jorge Luis Thomas MD [facility] [address] [address] 06/19/2020 09:44:25 06/19/2020 11:03:47 Small for gestational age fetus 491298716 O36.5999 [id number] MD Gladis Duckworth [address] [address] 06/19/2020 13:56:11 06/19/2020 14:45:25 Uterine size for dates discrepancy 030004730 O26.843 Z3A.30 [id number] Jorge Luis Thomas MD [facility] [address] [address] 07/04/2020 09:52:56 07/04/2020 10:19:23 Routine care 503773219 Z34.81 [id number] Nancy Luna MD [facility] [address] [address] 08/12/2020 16:42:53 08/12/2020 18:00:12 screening 411193625 Z36.9 Marijuana user 414587943 F12.90 Insufficie nt care 3631336343 109 O09.33 High risk 4720 0007 O09.33 Past pregn aliyah history of pre-eclampsia 4856567541 37573 Z87.59 Tobacco user 218890352 Z 72.0 Substance abuse counseling 769596994 Z71.51 Multigravi da of advanced maternal age 228130473 O09.529 [id number] Jorge Luis Thomas MD [facility] [address] [address] 08/21/2020 10:06:27 08/21/2020 11:07:42 Routine care 462484834 Z34.81 [id number] Brisa Perkins [facility] [address] [address] 10/22/2020 14:18:06 10/22/2020 17:03:59 Anxiety 85883306 F41.9 care 91691081 8 Z39.0 [id number] Maryjo Combs [facility] [address] [address] 12/02/2022 11:09:06 12/02/2022 11:55:08 Gynecologic examination 59760411 Z01.419 Z11.51 Take Calcium with Vitamin D 1200mg daily if not receiving in daily diet. It is strongly advised to have an annual flu shot and up can obtain at most pharmacies . If you have not had a TDap shot in the last 10 years you should obtain one as well. Discussed with patient & provided with informatio n regarding Gardisil vaccine to prevent the 4 strains for HPV that cause cervical cancer if under age 26. Encourage safe sexual practices, to use condoms and limit partners if not already in a monogamous relationsh ip. Do monthly self breast exams. Have mammogram yearly or every other year depending on family history. BRCA testing is now available for patients with strong genetic history of female cancer. If interested contact the office. Engage in daily exercise of low impact aerobic exercise 45-60 minutes 4-5 times weekly. Avoid tobacco and illicit drugs as well as using moderation with alcohol intake less than 1-2 8 oz beverages daily. This lifestyle behavior pattern will lead to less health conditions and longer life span. If BMI greater than 25 weight watchers or dietary consult advised. Patient received above instructio ns, and questions have been answered. If you have any questions please call or respond to this email. Patient was made aware of the patient portal and may obtain a paper copy of today's plan if desired. Menorrhagia 107532665 N9 2.0 Ultrasound and follow up with . Family history of cancer. Pt will schedule appointmen ts today. [id number] Jorge Luis Thomas MD [facility] [address] [address] 12/03/2022 11:03:28 12/03/2022 11:42:45 Menorrhagia 091291805 N92.0 [id number] Jorge Luis Thomas MD [facility] [address],[facility] [place] [address] 12/08/2022 11:58:23 12/08/2022 12:37:02 Menorrhagia 034285392 N92.0 this patient is a 42-year-ol d female presents for heavy vaginal bleeding. She has longstandi ng very heavy bleeding. Her menses are regular. However, they require double protection . Patient has accidents, getting blood on her bedding and clothing. Is affected work. She changes a pad or tampon every hour. She leaks blood around the pad and tampon. This bleeding has a profound impact on her quality of life and her activities of daily living. i we talked about treatment options in detail. Talked about medical treatment options and we talked surgical treatment options. We talked about endometria l ablation great detail. We agreed to proceed with endometria l ablation. She understand s the risks. [id number] [facility] [address] [address] 09/28/2023 17:14:05 09/28/2023 17:53:40 Discharge from left nipple [id number] 3872480 N64.52 Exam and subjective complaints warrant further imaging and labs at this time.Order given; will call for apptComple te lab workWill await return of results and determine what f/u is needed. Time spent in visit is a total of 22 mins with at least 50% of visit consisting of counseling and review of plan of care. Screening mammography 24 056077 Z12.31 [id number] Marquita JonesGARIMA [facility] [address] [address] 10/27/2023 15:50:19 10/27/2023 17:13:10 Abnormal uterine bleeding 7032914522 9100 N93.9 The patient and I discussed the various causes of abnormal uterine bleeding, including polyps, fibroids, hyperplasi a, atypia, anovulatio n, etc. We reviewed the typical evaluation with labs, pelvic US and possible endometria l biopsy. Briefly discussed the options available for treatment (depending on the results of evaluation ) such as hormonal treatment (OCPs, progestins ), Mirena, endometria l ablation, and surgery. We spent more than 30 minutes face to face. labs ordereddec lined STI screeningp elvic u/s orderedshe would like to discuss rescheduli ng an endometria l ablation - scheduled for u/s f/u with Dr. Thomas [id number] Jorge Luis Thomas MD [facility] [address] [address] 11/02/2023 17:14:38 11/03/2023 16:05:28 Abnormal uterine bleeding 3340987283 9100 N93.9 [id number] Jorge Luis Thomas MD [facility] [address] [address] 11/03/2023 16:28:21 11/03/2023 17:49:38 Menorrhagia 782896945 N92.0 this patient is a 42-year-ol d female presents for heavy vaginal bleeding. She has longstandi ng very heavy bleeding. Her menses are regular. However, they require double protection . Patient has accidents, getting blood on her bedding and clothing. Is affected work. She changes a pad or tampon every hour. She leaks blood around the pad and tampon. This bleeding has a profound impact on her quality of life and her activities of daily living. i we talked about treatment options in detail. Talked about medical treatment options and we talked surgical treatment options. We talked about endometria l ablation great detail. We agreed to proceed with endometria l ablation. She understand s the risks. [id number] Marquita GARIMA Jones [facility] [address] [address] 10/04/2024 10:55:46 10/04/2024 14:38:12 Gynecologic examination 28947477 Z01.419 [facility] - BSPap - done todaySTI screen - declinedMa mmogram - scheduling /follows with breast specialist at [facility] cancer screening - n/aRoutine labs - PCPRTC in 1 yr or sooner if needed Suggested Calcium with Vitamin D daily. Patient advised to get an annual flu shot in the fall and she could obtain at local pharmacy. Also to obtain TDap vaccinatio n if you have not had one in the last 10 years. Recommend yearly mammograms . Encouraged monthly self breast exams. Encourage safe sexual practices, to use condoms and limit partners if not already in a monogamous relationsh ip. Engage in regular exercise. Avoid tobacco and illicit drugs. This lifestyle behavior pattern will lead to less health conditions and longer life span. If BMI greater than 25 dietary consult advised. All questions have been answered. Abnormal u terine bleeding [id number] 9100 N93.9 Discussed AUB and h/o endometria l ablationpe lvic u/s ordered, u/s f/u with Dr. Thomas scheduled Time spent in visit is a total of 30 mins with at least 50% of visit consisting of counseling and review of plan of care. [id number] Jorge Luis Thomas MD [facility] [address] [address] 10/11/2024 17:22:50 10/12/2024 14:33:57 Abnormal uterine bleeding 3728312821 9100 N93.9 [id number] Jorge Luis Thomas MD [facility] [address] [address] 10/12/2024 10:12:10 10/12/2024 11:07:58 Menorrhagia 202942583 N92.0 This patient is a 44-year-ol d female presents for heavy vaginal bleeding. She has longstandi ng very heavy bleeding. Her menses are regular. However, they require double protection . Patient has accidents, getting blood on her bedding and clothing. Is affected work. She changes a pad or tampon every hour. She leaks blood around the pad and tampon. This bleeding has a profound impact on her quality of life and her activities of daily living. she has failed endometria l ablation. Her bleeding has returned after several months. We talked about treatment options. She would like to proceed with definitive surgical treatment. We we agreed to robotic assisted hysterecto my with bilateral salpingect harmeet. The patient understand s the procedure. The procedure was described to the patient in great detail. the patient also understand s the risks. The risks were also explained in detail. She understand s that injuries May occur during surgery. She understand s these injuries can result in hospitaliz ation, more surgery, and severe illness. She understand s there is risk of hemorrhage and infection. I spent over 30 minutes on her care in total. Including documentat ion, interpreta tion radiology results, Health Concerns Section Related Observation LastModified by Organization Detai ls LastModified Time None Recorded Concern Status LastModified by Organization Details LastModified Time None Recorded Advance Directives Directive None Recorded Payers Encounter Date Sequence Insurance Name Policy Number Policy [place] Covered Member ID [place] Member ID Guarantor Name 11/02/2023 1 [facility] (MEDICAID HMO) [id number] Donna Perez [id number] Donna Perez 11/03/2023 1 [facility] (MEDICAID HMO) [id number] Donna Givensr [id number] Donna Ana 10/04/2024 1 [employer] (MEDICAID REPLACEMENT - HMO) Donna Givensr [id number] Donna Ana 10/11/2024 1 [employer] (MEDICAID REPLACEMENT - HMO) Donna Givensr [id number] Donna Ana 10/12/2024 1 [employer] (MEDICAID REPLACEMENT - HMO) Donna Perez [id number] Donna Perez Notes Date Note Type Note Provider Name and Address Organization Details Recorded Time 11/03/2023 text/html This patient is a 43-year-old female who presents for severe menorrhagia. She has very bad bleeding. We would previously agreed to endometrial ablation for this difficult bleeding. We are unable to do it at the time for Nonmedical reasons. we have agreed this time to proceed with endometrial ablation and laparoscopic bilateral salpingectomy. She understands the procedure in great detail. We discussed risk. She understands injuries may occur that result in hospitalization, more surgery, and severe illness. We will proceed with surgery. We made a decision to perform surgery today. We spent over 40 minutes [id number]. More 50% was Counseling Jorge Luis Thomas MD [address], [place], [address], [facility] 11/03/2023 17:15:18 10/04/2024 text/html Annual GYNReport ed bypatient.Menstrual cycle:Bleeding lasts more than 7 days;Irregular cycle intervals Urinary symptoms:No hematuria; No incontinence Vulva:No genital lesion Vagina:Normal vaginal discharge Breast:No breast pain; No breast lump; No nipple discharge Current Contraception:Tubal ligation Sexual complaints:No sexual complaints; No pain during intercourse; Normal libido Menopausal Symptoms:No menopausal symptoms; Normal vaginal lubrication Psychological symptoms:No depression; No anxiety; No PMDD Preventive measures:Encourage self breast examination; Encourage regular exercise; Encourage no tobacco use; Encourage regular mammograms starting age 42Notes:44yo wwelast pap 12/2022 : nilm, HPV (-)h/o BS, endometrial ablation 12/2023. No issues/minimal bleeding for the first 6 months after, now having irregular bleeding for the past 3 months. Bleeding for 2-3 weeks at a time, with about one week off in between. Flow alternates between light/spotting, to moderate flow. GARIMA Pratt [address], [place], [address], [facility] 10/04/2024 14:02:34 10/12/2024 text/html This patient is a 44-year-old female presents for heavy vaginal bleeding. She has longstanding very heavy bleeding. Her menses are regular. However, they require double protection. Patient has accidents, getting blood on her bedding and clothing. Is affected work. She changes a pad or tampon every hour. She leaks blood around the pad and tampon. This bleeding has a profound impact on her quality of life and her activities of daily living. she has failed endometrial ablation. Her bleeding has returned after several months. We talked about treatment options. She would like to proceed with definitive surgical treatment. We we agreed to robotic assisted hysterectomy with bilateral salpingectomy. The patient understands the procedure. The procedure was described to the patient in great detail. the patient also understands the risks. The risks were also explained in detail. She understands that injuries May occur during surgery. She understands these injuries can result in hospitalization, more surgery, and severe illness. She understands there is risk of hemorrhage and infection. I spent over 30 minutes on her care in total. Including documentation, interpretation radiology results, Jorge Luis Thomas MD [address], [place], [address], [facility] 10/12/2024 11:00:00 OBGyn Episode Ob Episode Information Episode Created Date Number of Fetuses Patient Bloodtype Patient rh Status Prepregnancy Weight lbs Domestic Partner Domestic Partner Phone Father Name Program Advisor Status 01/22/20 20 1 CLOSED Fetus Data First Name Last Name Admitted to NICU Weight (g) Sex Living Outcome Pediatric Complications Fetus ID Race Codes Race Delivery Type , Spontane ous 708 Jose Calculation Initial Jose Date Initial Exam Date Initial Exam Provider Initial Ultrasound Date Last Menstrual Period Date Ultra Sound Weeks Gestation 0 Eighteen To Twenty Week Jose Update Ultra Sound Date Fundal Height At Umbil Quickening Date Ultra Sound Latest Weeks Gestation Final Jose Confirmed By Final Jose Confirmed Date Final Jose Date Ultra Sound Latest Days Gestation 0 0 Menstrual History Last Menstrual Date Menses Monthly On Bcp Conception Prior Menses Frequency Hcg Plus Date Menarche Onset Age Delivery Information Delivery Date Delivery Type Labor Anesthesia Weeks Gestation Incision Type Labor Labor Length Hrs Delivered By Post Complications Tubal Sterilization Discharge Date Comments 7 Discharge Information Feeding Method Contraceptive Method Maternal HG B and HCT Levels Ob Episode Information Episode Created Date Number of Fetuses Patient Bloodtype Patient rh Status Prepregnancy Weight lbs Domestic Partner Domestic Partner Phone Father Name Program Advisor Status 01/22/20 20 1 CLOSED Fetus Data First Name Last Name Admitted to NICU Weight (g) Sex Living Outcome Pediatric Complications Fetus ID Race Codes Race Delivery Type , Spontane ous 712 Jose Calculation Initial Jose Date Initial Exam Date Initial Exam Provider Initial Ultrasound Date Last Menstrual Period Date Ultra Sound Weeks Gestation 0 Eighteen To Twenty Week Jose Update Ultra Sound Date Fundal Height At Umbil Quickening Date Ultra Sound Latest Weeks Gestation Final Jose Confirmed By Final Jose Confirmed Date Final Jose Date Ultra Sound Latest Days Gestation 0 0 Menstrual History Last Menstrual Date Menses Monthly On Bcp Conception Prior Menses Frequency Hcg Plus Date Menarche Onset Age Delivery Information Delivery Date Delivery Type Labor Anesthesia Weeks Gestation Incision Type Labor Labor Length Hrs Delivered By Post Complications Tubal Sterilization Discharge Date Comments 0 Discharge Information Feeding Method Contraceptive Method Maternal HG B and HCT Levels Ob Episode Information Episode Created Date Number of Fetuses Patient Bloodtype Patient rh Status Prepregnancy Weight lbs Domestic Partner Domestic Partner Phone Father Name Program Advisor Status 01/22/20 20 1 CLOSED Fetus Data First Name Last Name Admitted to NICU Weight (g) Sex Living Outcome Pediatric Complications Fetus ID Race Codes Race Delivery Type 2976.47 0704 F Full Term 713 Vaginal Delivery Jose Calculation Initial Jose Date Initial Exam Date Initial Exam Provider Initial Ultrasound Date Last Menstrual Period Date Ultra Sound Weeks Gestation 0 Eighteen To Twenty Week Jose Update Ultra Sound Date Fundal Height At Umbil Quickening Date Ultra Sound Latest Weeks Gestation Final Jose Confirmed By Final Jose Confirmed Date Final Jose Date Ultra Sound Latest Days Gestation 0 0 Menstrual History Last Menstrual Date Menses Monthly On Bcp Conception Prior Menses Frequency Hcg Plus Date Menarche Onset Age Delivery Information Delivery Date Delivery Type Labor Anesthesia Weeks Gestation Incision Type Labor Labor Length Hrs Delivered By Post Complications Tubal Sterilization Discharge Date Comments 9 40 HTN post Discharge Information Feeding Method Contraceptive Method Maternal HG B and HCT Levels Ob Episode Information Episode Created Date Number of Fetuses Patient Bloodtype Patient rh Status Prepregnancy Weight lbs Domestic Partner Domestic Partner Phone Father Name Program Advisor Status 01/22/20 20 1 CLOSED Fetus Data First Name Last Name Admitted to NICU Weight (g) Sex Living Outcome Pediatric Complications Fetus ID Race Codes Race Delivery Type , Spontane ous 707 Jose Calculation Initial Jose Date Initial Exam Date Initial Exam Provider Initial Ultrasound Date Last Menstrual Period Date Ultra Sound Weeks Gestation 0 Eighteen To Twenty Week Jose Update Ultra Sound Date Fundal Height At Umbil Quickening Date Ultra Sound Latest Weeks Gestation Final Jose Confirmed By Final Jose Confirmed Date Final Jose Date Ultra Sound Latest Days Gestation 0 0 Menstrual History Last Menstrual Date Menses Monthly On Bcp Conception Prior Menses Frequency Hcg Plus Date Menarche Onset Age Delivery Information Delivery Date Delivery Type Labor Anesthesia Weeks Gestation Incision Type Labor Labor Length Hrs Delivered By Post Complications Tubal Sterilization Discharge Date Comments 3 Discharge Information Feeding Method Contraceptive Method Maternal HG B and HCT Levels Ob Episode Information Episode Created Date Number of Fetuses Patient Bloodtype Patient rh Status Prepregnancy Weight lbs Domestic Partner Domestic Partner Phone Father Name Program Advisor Status 01/22/20 20 1 CLOSED Fetus Data First Name Last Name Admitted to NICU Weight (g) Sex Living Outcome Pediatric Complications Fetus ID Race Codes Race Delivery Type , Spontane ous 711 Jose Calculation Initial Jose Date Initial Exam Date Initial Exam Provider Initial Ultrasound Date Last Menstrual Period Date Ultra Sound Weeks Gestation 0 Eighteen To Twenty Week Jose Update Ultra Sound Date Fundal Height At Umbil Quickening Date Ultra Sound Latest Weeks Gestation Final Jose Confirmed By Final Jose Confirmed Date Final Jose Date Ultra Sound Latest Days Gestation 0 0 Menstrual History Last Menstrual Date Menses Monthly On Bcp Conception Prior Menses Frequency Hcg Plus Date Menarche Onset Age Delivery Information Delivery Date Delivery Type Labor Anesthesia Weeks Gestation Incision Type Labor Labor Length Hrs Delivered By Post Complications Tubal Sterilization Discharge Date Comments 0 Discharge Information Feeding Method Contraceptive Method Maternal HG B and HCT Levels Ob Episode Information Episode Created Date Number of Fetuses Patient Bloodtype Patient rh Status Prepregnancy Weight lbs Domestic Partner Domestic Partner Phone Father Name Program Advisor Status 01/22/20 20 1 DELETED Jose Calculation Initial Jose Date Initial Exam Date Initial Exam Provider Initial Ultrasound Date Last Menstrual Period Date Ultra Sound Weeks Gestation 0 Eighteen To Twenty Week Jose Update Ultra Sound Date Fundal Height At Umbil Quickening Date Ultra Sound Latest Weeks Gestation Final Jose Confirmed By Final Jose Confirmed Date Final Jose Date Ultra Sound Latest Days Gestation 0 0 Menstrual History Last Menstrual Date Menses Monthly On Bcp Conception Prior Menses Frequency Hcg Plus Date Menarche Onset Age Delivery Information Delivery Date Delivery Type Labor Anesthesia Weeks Gestation Incision Type Labor Labor Length Hrs Delivered By Post Complications Tubal Sterilization Discharge Date Comments 0 Discharge Information Feeding Method Contraceptive Method Maternal HG B and HCT Levels Ob Episode Information Episode Created Date Number of Fetuses Patient Bloodtype Patient rh Status Prepregnancy Weight lbs Domestic Partner Domestic Partner Phone Father Name Program Advisor Status 01/22/20 20 1 CLOSED Fetus Data First Name Last Name Admitted to NICU Weight (g) Sex Living Outcome Pediatric Complications Fetus ID Race Codes Race Delivery Type , Induced 709 Jose Calculation Initial Jose Date Initial Exam Date Initial Exam Provider Initial Ultrasound Date Last Menstrual Period Date Ultra Sound Weeks Gestation 0 Eighteen To Twenty Week Jose Update Ultra Sound Date Fundal Height At Umbil Quickening Date Ultra Sound Latest Weeks Gestation Final Jose Confirmed By Final Jose Confirmed Date Final Jose Date Ultra Sound Latest Days Gestation 0 0 Menstrual History Last Menstrual Date Menses Monthly On Bcp Conception Prior Menses Frequency Hcg Plus Date Menarche Onset Age Delivery Information Delivery Date Delivery Type Labor Anesthesia Weeks Gestation Incision Type Labor Labor Length Hrs Delivered By Post Complications Tubal Sterilization Discharge Date Comments 6 Discharge Information Feeding Method Contraceptive Method Maternal HG B and HCT Levels Ob Episode Information Episode Created Date Number of Fetuses Patient Bloodtype Patient rh Status Prepregnancy Weight lbs Domestic Partner Domestic Partner Phone Father Name Program Advisor Status 01/22/20 20 1 DELETED Jose Calculation Initial Jose Date Initial Exam Date Initial Exam Provider Initial Ultrasound Date Last Menstrual Period Date Ultra Sound Weeks Gestation 0 Eighteen To Twenty Week Jose Update Ultra Sound Date Fundal Height At Umbil Quickening Date Ultra Sound Latest Weeks Gestation Final Joes Confirmed By Final Jose Confirmed Date Final Jose Date Ultra Sound Latest Days Gestation 0 0 Menstrual History Last Menstrual Date Menses Monthly On Bcp Conception Prior Menses Frequency Hcg Plus Date Menarche Onset Age Delivery Information Delivery Date Delivery Type Labor Anesthesia Weeks Gestation Incision Type Labor Labor Length Hrs Delivered By Post Complications Tubal Sterilization Discharge Date Comments 4 Discharge Information Feeding Method Contraceptive Method Maternal HG B and HCT Levels Ob Episode Information Episode Created Date Number of Fetuses Patient Bloodtype Patient rh Status Prepregnancy Weight lbs Domestic Partner Domestic Partner Phone Father Name Program Advisor Status 02/18/20 20 1 O Positive 153 CLOSED Fetus Data First Name Last Name Admitted to NICU Weight (g) Sex Living Outcome Pediatric Complications Fetus ID Race Codes Race Delivery Type 2778.25 1 M true Full Term 1518 Vaginal Delivery Problems Problem Notes Problem Name Start Date End Date Resolution Snomed Code Note Past history of pre-eclampsia [id number] per mfm sumi e baby asa Blood coagulation disorder [id number] [facility] does no t need anticoagulation meds History of loop electrosurgical excision procedure [id number] [facility] - noted CL at 16wks, pt no showed. CL is WNL - per Daly 05/12 no other ultrasounds are needed. Low lying placenta 04/10/20 20 [id number] resolved Gastroesophageal reflux disease [id number] Jose Calculation Initial Jose Date Initial Exam Date Initial Exam Provider Initial Ultrasound Date Last Menstrual Period Date Ultra Sound Weeks Gestation 08/26/2020 02/18/2020 02/18/2020 11/20/2019 13 Eighteen To Twenty Week Jose Update Ultra Sound Date Fundal Height At Umbil Quickening Date Ultra Sound Latest Weeks Gestation Final Jose Confirmed By Final Jose Confirmed Date Final Jose Date Ultra Sound Latest Days Gestation 0 [email or web address] 02/18/2020 08/26/20 20 0 Pre- Flowsheet Flowsheet Date 02/18/2020 Stacy Score Blood Edema Fundus Height Fundus Units Glucose Ketones Leukocytes Nitrite Labor Signs Protein Cervic Dilation Cervic Effacement Cervic Station 12 trace Type Weight in lbs Pre/Post Dialysis Refused Weight 159.103298207822 BP Diastolic BP Location Tested BP Systolic BP Type 74 127 Fetus Heart Rate Present A 150 Fetus Movement A No Comments Flowsheet Date 03/20/2020 Stacy Score Blood Edema Fundus Height Fundus Units Glucose Ketones Leukocytes Nitrite Labor Signs Protein Cervic Dilation Cervic Effacement Cervic Station 17 trace Type Weight in lbs Pre/Post Dialysis Refused Weight 163.051597940970 BP Diastolic BP Location Tested BP Systolic BP Type 75 116 Fetus Heart Rate Present A 150 Fetus Movement A No Comments to get u/s for cervical kyleigh th Flowsheet Date 03/20/2020 Satcy Score Blood Edema Fundus Height Fundus Units Glucose Ketones Leukocytes Nitrite Labor Signs Protein Cervic Dilation Cervic Effacement Cervic Station Type Weight in lbs Pre/Post Dialysis Refused BP Diastolic BP Location Tested BP Systolic BP Type Fetus Heart Rate Present Fetus Movement Comments Flowsheet Date 03/25/2020 Stacy Score Blood Edema Fundus Height Fundus Units Glucose Ketones Leukocytes Nitrite Labor Signs Protein Cervic Dilation Cervic Effacement Cervic Station Type Weight in lbs Pre/Post Dialysis Refused BP Diastolic BP Location Tested BP Systolic BP Type Fetus Heart Rate Present Fetus Movement Comments Flowsheet Date 04/08/2020 Stacy Score Blood Edema Fundus Height Fundus Units Glucose Ketones Leukocytes Nitrite Labor Signs Protein Cervic Dilation Cervic Effacement Cervic Station Type Weight in lbs Pre/Post Dialysis Refused Weight 165.543978405740 BP Diastolic BP Location Tested BP Systolic BP Type 76 125 Fetus Heart Rate Present Fetus Movement Comments Flowsheet Date 04/10/2020 Stacy Score Blood Edema Fundus Height Fundus Units Glucose Ketones Leukocytes Nitrite Labor Signs Protein Cervic Dilation Cervic Effacement Cervic Station Type Weight in lbs Pre/Post Dialysis Refused BP Diastolic BP Location Tested BP Systolic BP Type Fetus Heart Rate Present Fetus Movement Comments Flowsheet Date 04/10/2020 Stacy Score Blood Edema Fundus Height Fundus Units Glucose Ketones Leukocytes Nitrite Labor Signs Protein Cervic Dilation Cervic Effacement Cervic Station 20 trace Type Weight in lbs Pre/Post Dialysis Refused Weight 166.898466446130 BP Diastolic BP Location Tested BP Systolic BP Type 73 L arm 115 sitting Fetus Heart Rate Present A 162 Fetus Movement A Yes Comments Pt doing well. No complaints . Flowsheet Date 05/15/2020 Stacy Score Blood Edema Fundus Height Fundus Units Glucose Ketones Leukocytes Nitrite Labor Signs Protein Cervic Dilation Cervic Effacement Cervic Station 25 trace Type Weight in lbs Pre/Post Dialysis Refused Weight 165.313985333296 BP Diastolic BP Location Tested BP Systolic BP Type 77 L arm 122 sitting Fetus Heart Rate Present A 146 Fetus Movement A Yes Comments Pt doing well. Will plan 1 h our gtt at next office visit. Flowsheet Date 06/05/2020 Stacy Score Blood Edema Fundus Height Fundus Units Glucose Ketones Leukocytes Nitrite Labor Signs Protein Cervic Dilation Cervic Effacement Cervic Station neg trace 27 trace Type Weight in lbs Pre/Post Dialysis Refused Weight 167.338894442045 BP Diastolic BP Location Tested BP Systolic BP Type 77 117 Fetus Heart Rate Present A 150 Fetus Movement A Yes Comments patient is having some swell ing, precautions reviewed glucose on tuesday Flowsheet Date 06/19/2020 Stacy Score Blood Edema Fundus Height Fundus Units Glucose Ketones Leukocytes Nitrite Labor Signs Protein Cervic Dilation Cervic Effacement Cervic Station 28 trace Type Weight in lbs Pre/Post Dialysis Refused Weight 163.240683963546 BP Diastolic BP Location Tested BP Systolic BP Type 76 R arm 122 sitting Fetus Heart Rate Present A 145 Fetus Movement A Yes Comments S D -to get growth US+3-Glucose Flowsheet Date 06/19/2020 Stacy Score Blood Edema Fundus Height Fundus Units Glucose Ketones Leukocytes Nitrite Labor Signs Protein Cervic Dilation Cervic Effacement Cervic Station Type Weight in lbs Pre/Post Dialysis Refused BP Diastolic BP Location Tested BP Systolic BP Type Fetus Heart Rate Present Fetus Movement Comments Flowsheet Date 07/04/2020 Stacy Score Blood Edema Fundus Height Fundus Units Glucose Ketones Leukocytes Nitrite Labor Signs Protein Cervic Dilation Cervic Effacement Cervic Station none 32 Type Weight in lbs Pre/Post Dialysis Refused Weight 162.299996259635 BP Diastolic BP Location Tested BP Systolic BP Type 87 140 Fetus Heart Rate Present A 145 Fetus Movement A Yes Comments Wt. Loss and Nausea - rx tx Flowsheet Date 08/12/2020 Stacy Score Blood Edema Fundus Height Fundus Units Glucose Ketones Leukocytes Nitrite Labor Signs Protein Cervic Dilation Cervic Effacement Cervic Station neg none 34 cm trace 3cm 70% -2 Type Weight in lbs Pre/Post Dialysis Refused Weight 163.598561501014 BP Diastolic BP Location Tested BP Systolic BP Type 81 127 Fetus Heart Rate Present A 160 Present Fetus Movement A Yes Comments Donna has not been in for vi sit in almost 6 weeks. She states it is due to her job schedule and their car broke down. Minimal weight gain. Still no appetite and nausea. UDS pos for benzos and MJ. She admits to one of her friend's xanax yesterday and smoking MJ to make her eat. We discussed UDS in labor, SW consult in hospital, and I encouraged her to cease use of both immediately. She is appropriately concerned. Great FM. Occasional ctx. GBS done and discussed. Taking baby ASA. Still smoking cigs. BP good. Precautions given. Agreed to discuss elective induction at next week's appointment. Flowsheet Date 08/21/2020 Stacy Score Blood Edema Fundus Height Fundus Units Glucose Ketones Leukocytes Nitrite Labor Signs Protein Cervic Dilation Cervic Effacement Cervic Station 1+ Type Weight in lbs Pre/Post Dialysis Refused Weight 162.521953555382 BP Diastolic BP Location Tested BP Systolic BP Type 94 R arm 132 sitting Fetus Heart Rate Present A 145 Fetus Movement A Yes Comments +3 Glucose Menstrual History Last Menstrual Date Menses Monthly On Bcp Conception Prior Menses Frequency Hcg Plus Date Menarche Onset Age 0211/20/2019 Genetic Screening And Infection History Question Response Note Mental Retardation/Autism false Patient's Age Will Be 35 Yea rs Or Older At Estimated Date of Delivery true Thalassemia (Swedish, French, Mediterranean, Or Background): MCV < 80 false Neural Tube Defect (Meningomyelocele, Spina Bifi da, Or Anencephaly) false Congenital Heart Defect false Down Syndrome false Bill-Sachs (eg, Sabianist, Cajun, [place]e-[place] Citizen) f alse Paula Disease false Sickle Cell Disease Or Trait () false Hemophilia Or Other Blood Disorders false Muscular Dystrophy false Cystic Fibrosis false [place] Ch[place] false Intellectual Disability/Autism false If Yes, Was Person Tested For Fragile X? false Other Inherited Genetic Or Chromosomal Disorder false Maternal Metabolic Disorder (eg, Type 1 Diabetes , PKU) false Patient Or Baby's Father Had A Child With Defects Not Listed Above false Recurrent Loss, Or A Stillbirth false Medications (including Suppl ements, Vitamins, Herbs, OTC Drugs), Illicit/Recreational Drugs, Alcohol false If Yes, Agent(s) And Strength/Dosage false Any Other Genetic History false Live With Someone With TB Or Exposed To TB false Patient Or Partner Has History Of Genital Herpes true Pt. Rash Or Viral Illness Since Last Menstrual Perio d false History Of STD, Gonorrhea, Chlamydia, HPV, Syphi lis true Abn pap Other Infection History false History of HIV false History of Hepatitis false Prior GBS-infected child false Hemoglobinopathy Or Carrier false Other Structural Defect false Recent Travel History Outside of Country false Delivery Information Delivery Date Delivery Type Labor Anesthesia Weeks Gestation Incision Type Labor Labor Length Hrs Delivered By Post Complications Tubal Sterilization Discharge Date Comments 0 Induce d [facility]- idural 39.3 false Brisa Perkins CNM GERD/clot ting disorder/ hx LEEP Discharge Information Feeding Method Contraceptive Method Maternal HG B and HCT Levels Ob Episode Information Episode Created Date Number of Fetuses Patient Bloodtype Patient rh Status Prepregnancy Weight lbs Domestic Partner Domestic Partner Phone Father Name Program Advisor Status 08/27/20 20 1 DELETED Jose Calculation Initial Jose Date Initial Exam Date Initial Exam Provider Initial Ultrasound Date Last Menstrual Period Date Ultra Sound Weeks Gestation 0 Eighteen To Twenty Week Jose Update Ultra Sound Date Fundal Height At Umbil Quickening Date Ultra Sound Latest Weeks Gestation Final Jose Confirmed By Final Jose Confirmed Date Final Jose Date Ultra Sound Latest Days Gestation 0 0 Menstrual History Last Menstrual Date Menses Monthly On Bcp Conception Prior Menses Frequency Hcg Plus Date Menarche Onset Age Delivery Information Delivery Date Delivery Type Labor Anesthesia Weeks Gestation Incision Type Labor Labor Length Hrs Delivered By Post Complications Tubal Sterilization Discharge Date Comments 0 39.4 missed 6wks of pnc,h/o hsv no valtrex Discharge Information Feeding Method Contraceptive Method Maternal HG B and HCT Levels
--- OUTSIDE RECORDS SUMMARY | 2025-02-02 16:10 | XMS_ITS | Clinical Summary ---
Author Organization [facility] Address [address] [place] [address] Care Team Providers Care Air Cargo Specialist Name Role Phone Ascencion Pelayo MD Primary Care Provider [phone] Source Comments [facility] and Associated [facility]ician Practices is amultiple site organization consisting of ambulatory clinics and hospital sitesin [place], [place], [place] and [place]. This disclosure is being madepursuant to the Care Everywhere program and may not contain all information available regarding this patient. Last updated 18.[facility] Allergies Active Allergy Reactions Criticality Noted Date Comments Meperidine Skin Reactions,Systemic 01/29/2014 Penicillins GI Discomfort 02/20/2020 Medications * Be aware that medications may not be up to date on this document. Alwaysverify current medications with the patient. vitamin-ferrous fumarate-folic acid (NATALCARE PLUS) 27-1 MG tablet Take 1 Tab by mouth once daily. Active folic acid (FOLVITE) 1 MG tablet Take 400 (four hundred) tablets by mouth once daily Active aspirin (ASPIRIN) 81 MG chew tabletIndicatio ns:PREECLAMPSIA PREVENTION Take 2 tablets by mouth once daily Reasons: PREECLAMPSIA PREVENTION 100 tablet 11 0 Active Additional Information Patient not taking.Reported on 07/12/2023 omeprazole (PriLOSEC) 20 MG capsule Take 1 (one) capsule by mouth once daily 3 Active Multiple Vitamins-Minera ls (MULTI ADULT GUMMIES PO) Take 2 Each by mouth once daily Take two gummies daily. Active Active Problems Patient Care Coordination No te Formatting of this note migh t be different from the original. No flow sheet available per Ronda at [facility]'s office Problem Noted Date Diagnosed Date Family history of blood coagulation disorder Overview (02/20/2020): Brother with VTE history and a thrombophilia. Had protein S levels checked during which were low [Protein S is physiologically decreased in ]. Assessment & Plan (02/20/2020 10:30 AM CDT): No records available for protein S levels outside of to review during today's consultation. A true protein as deficiency is not suspected for this patient. Maternal Medicine recommendations: 1. She has no indication for anticoagulation during or . Antepartum multigravida of advanced maternal age 0502/20/2020 Assessment & Plan (02/20/2020 10:31 AM CDT): Advanced maternal age The obstetric risks of advanced maternal age were discussed, including but not limited to the increased risk of Down's syndrome and other genetic disorders, congenital anomalies, SAB, gestational hypertension, preeclampsia, gestational diabetes, labor, morbidity, placental complications such as abruption and previa, delivery via and dysfunctional labor, and other maternal morbidity/mortality. The first-trimester anatomy survey was unremarkable, which is reassuring. Cell free DNA aneuploidy screening has already been drawn and is pending. Maternal Medicine recommendations: 1. follow-up results of cell free DNA aneuploidy screening 2. Detailed anatomy survey at 20 weeks History of abnormal cervical Pap smear 0 Assessment & Plan (02/20/2020 10:15 AM CDT): Has had are repeat occurrence of an abnormal Pap smear with plans for colposcopy during this . We discussed that if she merited a repeat excisional procedure that she may have an increased risk of cervical incompetence/ labor. History of LEEP (loop electr osurgical excision procedure) of cervix complicating 01/29/2014 Overview (02/18/2020): 2012 Assessment & Plan (02/20/2020 10:29 AM CDT): No personal history of delivery. Maternal Medicine recommendations: 1. Recommend cervical length assessment at 16 weeks and then again at 20 weeks during the detailed 2nd trimester anatomy survey Hx of preeclampsia, prior , currently p regnant 01/29/2014 Overview (02/20/2020): Had hypertension surrounding in her 1st . Reported that she took antihypertensives for few months. Subsequently had no issues with blood pressures outside of or in her subsequent to pregnancies. Assessment & Plan (02/20/2020 10:29 AM CDT): Remains at increased risk for recurrent hypertensive disorders of due to previous history and advanced maternal age. Maternal Medicine recommendations: 1. aspirin for preeclampsia risk reduction--prescription provided Tobacco abuse 01/29/2014 Assessment & Plan (02/20/2020 10:30 AM CDT): Maternal Medicine recommendations: 1. Would benefit from complete smoking cessation. Compound heterozygous MTHFR mutation C677T/[id number] C 01/25/2014 Overview (02/20/2020): Anita was screened for thrombophilias in 2013 (during ) when her brother was diagnosed with venous thromboembolism and a blood clotting disorder. She does not have the blood clotting disorder that he was identified to have. Homocystine levels in 2013 at the time of MTHFR mutation detection were normal. Assessment & Plan (02/20/2020 10:30 AM CDT): Anita has had 3 successful pregnancies and has never had an episode of venous thromboembolism. She is unaware of the specific thrombophilia that afflicts her brother but she does know that she does not have share this thrombophilia. She has been taking folic acid supplementation for years. Reduced methylenetetrahydrofolate reductase (MTHFR) enzyme activity is a risk factor for hyperhomocystinemia, especially in the presence of low serum folate levels. Mild to moderate hyperhomocystinemia has been identified as a risk factor for coronary artery disease and venous thromboembolism. Anita was already evaluated and had normal homocystine values and her history suggests that she is at low risk for venous thromboembolism. While she does not need folic acid supplementation since she does not have a hyperhomocystinemia, we discussed that it is reasonable for her to continue with this vitamin supplementation. Maternal Medicine recommendations: 1. She has no indication for anticoagulation during or . Resolved Problems Problem Noted Date Diagnosed Date Resolved Date Heterozygous MTHFR mutation C677T 01/25/2014 02/20/2020 Supervision of other high-risk 01/25/2014 02/20/2020 Overview (02/18/2020): Low protein S Family History Medical History Relation Name Comments Diabetes Brother 2 Cancer - Prostate Father Clotting Disorder Father Diabetes Father Hypertension Father Cancer - Other Maternal Grandmother Colon Cancer after age 50 or unknown Maternal Uncle Cancer - Other Mother Diabetes Paternal Grandfather Colon Cancer after age 50 or unknown Paternal Grandmot her Diabetes Paternal Grandmother Relation Name Status Comments Brother 1 Alive Brother 2 Alive Father Alive Maternal Grandfather Maternal Grandmother Maternal Uncle Mother Alive cervical cancer Paternal Grandfather Paternal Grandmother Social History Tobacco Use Types Packs/Day Years Used Date Smoking Tobacco: Every Day Cigarettes 0.5 25 Smokeless Tobacco: Never Alcohol Use Standard Drinks/Week Comments No 0 (1 standard drink = 0.6 oz pur e alcohol) Comments No Sex and Gender Information Value Date Recorded Sex Assigned at Not on file 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 Gender Identity Not on file Sexual Orientation Not on file Last Filed Vital Signs Vital Sign Reading Time Taken Comments Blood Pressure 111/77 07/12/2023 2:23 PM CDT Pulse 68 07/12/2023 2:23 PM CDT Temperature 36.9 C (98.4 F) 02/20/2020 8:54 AM CDT Respiratory Rate 15 01/29/2014 10:01 AM CDT Oxygen Saturation 100% 01/29/2014 10:01 AM CDT Inhaled Oxygen Concentration - - Weight 77.2 kg (170 lb 3.2 oz) 07/12/2023 2:23 P M CDT Height 162.6 cm (5' 4 ) 07/12/2023 2:23 PM CDT Body Mass Index 29.21 07/12/2023 2:23 PM CDT Plan of Treatment Health Maintenance Due Date Last Done Comments LIPID TESTING 1982 MAMMOGRAM 1982 HIV SCREENING 1997 HEPATITIS C SCREENING 02/05/2000 DTAP/TDAP/TD VACCINES (1 - Tdap) 2001 HEPATITIS B VACCINE (1 of 3 - 19+ 3-dose series) 2001 PNEUMOCOCCAL VACCINE (1 of 2 - PCV) 2001 SCREENING FOR DIABETES 07/12/2023 COVID-19 VACCINE (1 - 2023-2 5 season) 2024 DEPRESSION SCREENING 10/03/2024 INFLUENZA VACCINE (Season Ended) 2025 PAP SMEAR 12/02/2025 12/02/2022 ZOSTER VACCINE (1 of 2) 02/10/2032 HIB VACCINE Aged Out No longer eligi ble based on patient's age to complete this topic HPV VACCINE Aged Out No longer eligi ble based on patient's age to complete this topic MENINGOCOCCAL (Group B) VACC INE SHARED DECISION-MAKING Aged Out No longer eligibl e based on patient's age to complete this topic MENINGOCOCCAL GROUPS A/C/Y/W VACCINE Aged Out No longer eligible b ased on patient's age to complete this topic Insurance [facility] MEDICA[facility] - OUT [facility] SELF PAY NO INSURANCE Member Subscriber Plan / Payer (Ef fective for All Dates) Name:Anita Perez Member ID:Not on file Relation to Subscriber:Not on file Name:ANITA PEREZ Subscriber ID:Not on file Address: [address] [place] [id number] Payer ID:Not on file Group ID:Not on file Type:Self Pay Address: [place], [place] [facility] SELF PAY NO INSURANCE Member Subscriber Plan / Payer (Ef fective for All Dates) Name:Anita Perez Member ID:Not on file Relation to Subscriber:Not on file Name:ANITA PEREZ Subscriber ID:Not on file Address: [address] [place] [phone] Payer ID:Not on file Group ID:Not on file Type:Self Pay Address: [place], [place] [facility] SELF PAY NO INSURANCE Member Subscriber Plan / Payer (Ef fective for All Dates) Name:Anita Perez Member ID:Not on file Relation to Subscriber:Not on file Name:ANITA PEREZ Subscriber ID:Not on file Address: [address] [place] [phone] Payer ID:Not on file Group ID:Not on file Type:Self Pay Address: [place], [place] Care Teams Air Cargo Specialist Relationship Specialty Start Date End Date Ascencion Pelayo MD [address] [place] [address] [address] [place] [address] PCP - General Family Medicine 07/12/23
--- OUTSIDE RECORDS SUMMARY | 2025-02-02 16:10 | XMS_ITS | CONTINUITY OF CARE DOCUMENT ---
Author Name alessandra aparicio Address Unknown Organization [facility] Address [address] [place] [address] Phone [phone] Care Team Providers Care Campus Security Officer Name Role Phone Davey Edouard MD Unavailable [phone] NEIL TALBOT MD Unavailable [phone] NEIL TALBOT MD Unavailable [phone] PROBLEMS Condition Status Date Provider Notes Tobacco abuse active Raoul Armas GERD active Raoul Armas Chest pain-type to be determined active Sona Armas Cardiology examination active Raoul arevalo ENCOUNTERS Date Type Provider Location Encounter Diag nosis - In-person encounter Office Visit Davey Edouard MD [place] [facility] - In-person encounter Office Visit Davey Edouard MD [place] [facility] Cardiology examinationChest pain-type to be determinedGERDTobacco abuse VITAL SIGNS Date Observation Value Provider Body Mass Index (Ratio) 28.32 kg/m2 Leonardo Fletcher pulse rate 86 /min Davey Edouard MD blood pressure, diastolic 76 mm[Hg] Iwona Edouard MD blood pressure, systolic 112 mm[Hg] Davey Edouard MD weight E&M 165 [lb_av] Kianna Cornejo height E&M 64 [in_i] Kianna Cornejo weight E&M 160 [lb_av] Brenda hardwick Body Mass Index (Ratio) 28.32 kg/m2 Zeinab Yeungri blood pressure, diastolic 76 mm[Hg] Chloe nkLogic blood pressure, systolic 110 mm[Hg] Libertad kLogic pulse rate 72 /min Gera y blood pressure, cuff size regular Ja blood pressure, diastolic 76 mm[Hg] Ja blood pressure, systolic 110 mm[Hg] Marta [facility] height E&M 64 [in_i] Gera y respiratory rate E&M 16 /min Gera oxygen saturation, oximetry 98 % Gera weight E&M 165 [lb_av] Gera y ALLERGIES Allergy Name Onset Date Reaction Criticality Status AMOXICILLIN Low Criticality active PENICILLIN Low Criticality active DEMEROL High Criticality active HISTORY OF MEDICATION USE Medication Status Instructions Dates Provider Indications Com ments omeprazole 40 mg capsule,delayed release(DR/EC) active Davey Edouard MD azithromycin 250 mg tablet completed - Davey Edouard MD fluticasone propionate 50 mcg/actuation spray,suspension active Davey Edouard MD SOCIAL HISTORY Date Observation Value Provider smoking history, total pack/day 1 Saulo Fletcher cigarette use yes Saulo Fletcher smoking status Current every day smoker T bianca Fletcher smoking history, total pack/day 1 Gera cigarette use yes Gera sim ay smoking status Current every day smoker J [facility] [place] INSURANCE PROVIDERS Payer name Policy type / Coverage type [employer] party ID [place] MED[place] Medicaid [id number] ADVANCE DIRECTIVES Name Date DISCUSSED - NO DECISION MADE TREATMENT PLAN Date Name Performer Cardiology: T he Patient was encouraged to stop smoking. Saulo Justine Cardiology:w/u bree l, proceed with cath in future if needed Saulo Justine Cardiology:continue prilosec as needed H er updated medication list for this problem includes: Omeprazole 40 Mg Capsule,delayed Release(dr/ec) (Omeprazole) Saulo Fletcher Cardiology:The Patie nt was encouraged to stop smoking. Raoul Armas Cardiology: H er updated medication list for this problem includes: Omeprazole 40 Mg Capsule,delayed Release(dr/ec) (Omeprazole) Raoul Armas Cardiology:Obtain echo and routi ne stress test Raoul Chanda Date Name Stress Exercise Card iolite Stress Routine Complete Echo HISTORY OF PROCEDURES Procedure Date Procedure Name Provider Procedure Notes S tatus EKG Davey Edouard MD completed
--- OUTSIDE RECORDS SUMMARY | 2025-02-02 16:11 | XMS_ITS | CONTINUITY OF CARE DOCUMENT ---
Author Name alessandra aparicio Address Unknown Organization [facility] Address [address] [place] [address] Phone [phone] Care Team Providers Care Patient Care Representative Name Role Phone Davey Edouard MD Unavailable [phone] NEIL TALBOT MD Unavailable [phone] NEIL TALBOT MD Unavailable [phone] PROBLEMS Condition Status Date Provider Notes Cardiology examination active Raoul arevalo Chest pain-type to be determined active Sona Armas GERD active Raoul Armas Tobacco abuse active Raoul Armas ENCOUNTERS Date Type Provider Location Encounter Diag nosis - In-person encounter Office Visit Davey Edouard MD [place] [facility] - In-person encounter Office Visit Davey Edouard MD [place] [facility] Cardiology examinationChest pain-type to be determinedGERDTobacco [...] Ja blood pressure, systolic 110 mm[Hg] Marta [facility] height E&M 64 [in_i] Gera y [...] smoking status Current every day smoker J [facility] INSURANCE PROVIDERS Payer name Policy type / Coverage type [place] [employer] [place] MED[place] Medicaid [id number] ADVANCE DIRECTIVES Name Date DISCUSSED - NO [...]
== END 2025-02-02 10:06 | disposition home or self-care (01) ==
PROVIDERS: Emergency Provider Nurse Practitioner Family; PCP Emergency Medicine
DX: L25.9 Unspecified contact dermatitis, unspecified cause (principal); F17.210 Nicotine dependence, cigarettes, uncomplicated; Z79.899 Other long term (current) drug therapy
CPT/HCPCS: 99213; G0463

== ENCOUNTER 2025-06-10 15:05 | Emergency (ER) | payer OTHER, SELFPAY ==
--- OUTSIDE RECORDS SUMMARY | 2025-06-10 15:07 | XMS_ITS | Clinical Summary ---
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6 cm (5' 4) 09/11/2024 3:52 PM TIN FLOPPER Body Mass Index 27.77 09/11/2024 3:52 PM TIN FLOPPER Plan of Treatment Health Maintenance Due Date Last Done Comments Breast Cancer Screening-Mammogram 1982 Cervical Cancer Screening 1982 Depression Screening 1982 Hepatitis C Screening 1982 Varicella Vaccines (1 of 2 - 13+ 2-dose series) 1994 Hepatitis B Screening 02/10/2000 Regular Well Visit/Exam 18-64 02/10/2000 Pneumococcal vaccine <65 (1 of 2 - PCV) 2001 HPV Vaccines (1 - 3-dose SCDM series) 2009 Influenza Vaccine (#1) 2025 DTaP/Tdap/Td Vaccine (2 - Td or Tdap) 10/29/2028 Insurance [facility] Care Teams Spring Coverer Relationship Specialty Start Date End Date Ascencion Pelayo MD PCP - General Emergency Medicine 07/01/23
--- OUTSIDE RECORDS SUMMARY | 2025-06-10 15:07 | XMS_ITS | Patient Health Record ---
Author Organization [facility] Address [address] [place] [address] Care Team Providers Care Driver License Reviewing Officer Name Role Phone Cece Crowley Primary Care Provider [phone] Allergies Allergen (clinical drug ingredient) Drug/Non Drug [...] medication side effects (nausea) Orally Once a day; Duration: 14 days 08/27/2022 Active Promethazine HCl 25 MG 1 Tablet Orally e very 6 hours Active Cyproheptadine HCl 4 MG 1 tablet Orally Once before bed as needed for nightmares; Duration: 30 days 09/14/2022 Not-Taking FLUoxetine HCl 10 MG 1 capsule in the mo rning Orally Once a day; Duration: 30 days Active hydrOXYzine HCl 25 MG 1 - 2 tablets Oral ly every 6 hrs as needed for anxiety; Duration: 30 days Active Social History Tobacco Use: Social History Observation Description Date Details (start date - stop date) Current Smoker NA - NA Sex Assigned At : Social History Observation Description Sex Assigned At Female Dont use, Tobacco Use/Smoking Question Answer Notes Are you a current smoker How many cigarettes a day do you smoke? - Problems Problem Type SNOMED Code ICD Code Onset Dates Problem Status W/U Status Risk Notes Problem Tobacco user (089303838) Nicotine dependence, unspecified, uncomplicated (F17.200) Active confirmed Problem Spasm of back muscles (545162502) Muscle spasm of back (M62.830) Active confirmed Problem Posttraumatic stress disorder (39357067) PTSD (post-traumatic stress disorder) (F43.10) Active confirmed Problem Generalized anxiety disorder (40788594) RAULITO (generalized anxiety disorder) (F41.1) Active confirmed Problem Visual impairment (297586556) Vision impairment (H54.7) Active confirmed Problem Impacted cerumen of both ears (7746419456217719 ) Impacted cerumen of both ears (H61.23) Active confirmed Problem Recurrent major depression (45086836) Major depressive disorder, recurrent episode with anxious distress (F33.9) Active confirmed Plan Of Treatment No Information Insurance Providers Payer Name Payer Address Payer Phone Subscriber Number Group Number Insured Name Patient Relationship to Insured Coverage Start Date Coverage End Date [email or web address] [address] [place] [phone] [id number] Donna Perez Self - patient is the insured 2 [employer] [address] [place] [address] [id number] Donna Perez Self - patient is the insured 2 Medical (General) History Medical History History ICD Code anxiety ptsd nicotine dependence Surgical History Surgery Date(Month/Year) Leep Uterus and ovary growth Colposcopy 2 inch tear in colon Hospitalization History Reason Date(Month/Year)
--- OUTSIDE RECORDS SUMMARY | 2025-06-10 15:08 | XMS_ITS | Clinical Summary ---
Author Organization [facility] Address [address] [place] [address] Care Team Providers Care Manager Of Engineering Name Role Phone Ascencion Pelayo MD Primary Care Provider [phone] Source Comments [facility] and Associated Physician Practices is amultiple site organization consisting of ambulatory clinics and hospital sitesin [place], [place], [place] and [place]. This disclosure is being madepursuant to the Care Everywhere program and may not contain all information available regarding this patient. 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 Gender Identity Not on file Sexual Orientation [...] P M CDT Height 162.6 cm (5' 4) 07/12/2023 2:23 PM CDT Body Mass Index 29.21 07/12/2023 2:23 PM CDT Plan of Treatment Health Maintenance Due Date Last Done Comments LIPID TESTING 1982 MAMMOGRAM 1982 HIV SCREENING 1997 HEPATITIS C SCREENING 02/05/2000 DTAP/TDAP/TD VACCINES (1 - Tdap) 2001 HEPATITIS B VACCINE (1 of 3 - 19+ 3-dose series) 2001 PNEUMOCOCCAL VACCINE (1 of 2 - PCV) 2001 HPV VACCINE (1 - 3-dose SCDM series) 2009 SCREENING FOR DIABETES 07/12/2023 DEPRESSION SCREENING 10/03/2024 COVID-19 VACCINE (1 - 2023-2 5 season) 2025 INFLUENZA VACCINE (#1) 2025 PAP SMEAR 12/02/2025 12/02/2022, 12/02/2022 ZOSTER VACCINE (1 of 2) 02/10/2032 HIB VACCINE Aged Out No longer eligi ble based on patient's age to complete this topic MENINGOCOCCAL (Group B) VACCINE SHARED DECISION-MAKING Aged Out No longer eligible based on patient's age to complete this topic MENINGOCOCCAL GROUPS A/C/Y/W VACCINE Aged Out No longer eligible b ased on patient's age to complete this topic Insurance [facility] MEDICAID - OUT [facility] SELF PAY NO INSURANCE Member Subscriber Plan / Payer (Ef fective for All Dates) Name:Anita Perez Member ID:Not on file Relation to Subscriber:Not on file Name:ANITA PEREZ Subscriber ID:Not on file Address: [address] [place] [phone] Payer ID:Not on file Group ID:Not on file Type:Self Pay Address: [place], [place] [facility] SELF PAY NO INSURANCE Member Subscriber Plan / Payer (Ef fective for All Dates) Name:Anita Perez Member ID:Not on file Relation to Subscriber:Not on file Name:ANITA PEREZ Subscriber ID:Not on file Address: [address] [place] [phone] Payer ID:Not on file Group ID:Not on file Type:Self Pay Address: [place], [place] [facility] SELF PAY NO INSURANCE Member Subscriber Plan / Payer (Ef fective for All Dates) Name:Anita Perez Member ID:Not on file Relation to Subscriber:Not on file Name:ANITA PEREZ Subscriber ID:Not on file Address: [address] [place] [phone] Payer ID:Not on file Group ID:Not on file Type:Self Pay Address: [place], [place] Care Teams Manager Of Engineering Relationship Specialty Start Date End Date Ascencion Pelayo MD [address] [place] [address] [address] [place] [address] PCP - General Family Medicine 07/12/23
[2025-06-10 15:12] VITALS: BP 126/80; PULSE 100; RESP 18; TEMP 36.4; O2SAT 100
--- NOTE | 2025-06-10 15:14 | ED.DENTAL ---
HPI - Dental/Oral General Chief complaint: Dental/Oral Stated complaint: oral infection Time Seen by Provider: 06/10/25 15:16 Source: patient, RN notes reviewed and old records reviewed Mode of arrival: ambulatory Limitations: no limitations History of Present Illness HPI Narrative: 45year old female Related Data Home Medications ?Medication ?Instructions ?Recorded ?Confirmed ?Last Taken ?Type omeprazole 40 mg capsule,delayed 40 mg PO DAILY 11/01/23 02/02/25 Unknown History release multivitamin 1 tablet PO DAILY 01/16/24 02/02/25 Unknown History Allergies Allergy/AdvReac Type Severity Reaction Status Date / Time amoxicillin AdvReac Intermediate N&V/DROWSY Verified 02/02/25 09:47 meperidine AdvReac Intermediate REDNESS Verified 02/02/25 09:47 AND BURNING AT IV SITE WITH INJECTION clindamycin AdvReac Mild Diarrhea Verified 06/10/25 15:20 Review of Systems Review of Systems: CONSTITUTIONAL: Denies fever, chills, or sweats. CARDIOVASCULAR: Denies chest pain, palpitations, or edema. RESPIRATORY: Denies cough or dyspnea. SKIN: Reports MUSCULOSKELETAL: Denies joint pain or myalgia. NEUROLOGIC: Denies headache, numbness, or weakness. All systems reviewed & are unremarkable except as noted in HPI and below PMFSH Past Medical History Medical History Anxiety Back injury Injury of left hip Right clavicle fracture Left hand fracture Ankle fracture, left Arthritis Kidney infection HSV infection GI bleed Surgical History Surgical History H/O laparoscopy H/O: hemorrhoidectomy S/P LEEP H/O dilation and curettage Family History Family History Father Cancer Hypertension Heart disease Other Diabetes mellitus High cholesterol Social History Social History Social History: She continues to smoke 1 pack a cigarettes a day. She lives with her boyfriend and has 3 children. She is not interested in smoking cessation Code status full code Smoking packs per day: 1 Smoking cigarettes per day: 20.0 Years smoked: 20 Smoking pack-years: 20.00 Smoking status: Current every day smoker Tobacco type: cigarettes Second hand tobacco smoke exposure: Yes Alcohol intake: never Substance use: current Substance use type: marijuana Other substance usage details: every other day Do You Feel Safe in your Home?: Yes Lack of Transportation: No Lack of Food: Never True Current Housing: I Have Housing Concerned About Future Housing: No Difficulty Paying Gas/Electric Bills: No Difficulty Paying for Meds: No Currently Unemployed: No Education: High School Diploma/GED Difficulty w/ Childcare or Family Care: No Living arrangements: with family Gender identity (if verbalized by the patient): Female Sexual Orientation (if Verbalized by the Patient): Straight or Heterosexual Spiritual care concerns: No Comments At time of signature, agree with nursing past medical, surgical, social and family history. There is no relevant family history pertinent to the presenting complaint Exam Narrative: GENERAL: Well-appearing, well-nourished, and in no acute distress. HEAD: Normocephalic, atraumatic. EYES: PERRLA, conjunctivae clear, and EOMI. ENT: Mucous membranes moist. Oropharynx without edema, erythema or lesions. NECK: Supple. No lymphadenopathy CHEST: Clear to auscultation. No respiratory distress. HEART: Regular rate and rhythm. SKIN: Warm, dry.? Patches of erythema and edema NEURO:? Alert and oriented x3. PSYCH: Normal mood and affect Course Course Emergency Course: Patient is aware of diagnosis, understands and agrees to treatment plan.? Anticipatory guidance given.? Patient agrees to follow-up as directed and is aware of reasons to seek care at the emergency department. Portions of this record may have been created with voice recognition software Level of Care: Express Care Visit Vital Signs Vital signs: Vital Signs Temperature 36.4 C L 06/10/25 15:12 Pulse Rate 100 06/10/25 15:12 Respiratory Rate 18 06/10/25 15:12 Blood Pressure 126/80 06/10/25 15:12 Pulse Oximetry 100 06/10/25 15:12 Oxygen Delivery Room Air 06/10/25 15:12 Temperature 36.4 C L 06/10/25 15:12 Pulse Rate 100 06/10/25 15:12 Respiratory Rate 18 06/10/25 15:12 Blood Pressure 126/80 06/10/25 15:12 Pulse Oximetry 100 06/10/25 15:12 Oxygen Delivery Room Air 06/10/25 15:12 Reviewed Discharge Plan Discharge Patient Language: Ethiopian Prescriptions: No Action bupropion HCl 150 mg tablet sustained-release 12 hr PO metronidazole 500 mg tablet erythromycin 5 mg/gram (0.5 %) ointment 0.5 inch EACH EYE QID 5 Days Qty: 3.5 0RF omeprazole 40 mg capsule,delayed release(DR/EC) 40 mg PO DAILY oxycodone-acetaminophen 5-325 mg tablet 1 tablet PO Q4H PRN (Reason: pain) Qty: 10 0RF ondansetron 4 mg tablet,disintegrating 4 mg PO Q8H PRN (Reason: nausea and vomiting) Qty: 14 0RF multivitamin [Daily Multivitamin] Tablet 1 tablet PO DAILY Follow-up/Referrals: Ascencion Pelayo MD [Primary Care Provider, Family Practice] Stand Alone Forms: Work/School Release IP
--- NOTE | 2025-06-10 15:35 | ED.SKABFB ---
HPI - Skin/Abscess/Foreign Bdy General Chief complaint: Skin/Abscess/Foreign Body Stated complaint: oral infection Time Seen by Provider: 06/10/25 15:16 Source: patient, family, RN notes reviewed and old records reviewed Mode of arrival: ambulatory Limitations: no limitations History of Present Illness HPI narrative: 45 year old female who presents to [facility] care with complaints of 2 day history of sore to the right side of her face near mouth with pain and swelling and some yellow green drainage. Patient reports that her son was seen for impetigo 4 days ago and given cephalexin and Mupirocin with his infection clearing to his leg. Mother reports that she has been taking Tylenol and Ibuprofen for her discomfort and has been using some of her son's Mupirocin ointment to lesion. MD complaint: lesion (face) Onset (ago): day(s) (2) Location: face (right side near mouth) Severity: mild Treatments prior to arrival: other (Tylenol Ibuprofen and Mupirocin ointment) Related Data Home Medications ?Medication ?Instructions ?Recorded ?Confirmed ?Last Taken ?Type omeprazole 40 mg capsule,delayed 40 mg PO DAILY 11/01/23 02/02/25 Unknown History release multivitamin 1 tablet PO DAILY 01/16/24 02/02/25 Unknown History Allergies Allergy/AdvReac Type Severity Reaction Status Date / Time amoxicillin AdvReac Intermediate N&V/DROWSY Verified 02/02/25 09:47 meperidine AdvReac Intermediate REDNESS Verified 02/02/25 09:47 AND BURNING AT IV SITE WITH INJECTION clindamycin AdvReac Mild Diarrhea Verified 06/10/25 15:20 Review of Systems Review of Systems: CONSTITUTIONAL: Denies fever, chills, or sweats. CARDIOVASCULAR: Denies chest pain, palpitations, or edema. RESPIRATORY: Denies cough or dyspnea. SKIN: Reports lesion to the right side of her face with yellowish greenish drainage noted and tenderness for the past 2 days MUSCULOSKELETAL: Denies joint pain or myalgia. NEUROLOGIC: Denies headache, numbness, or weakness. All systems reviewed & are unremarkable except as noted in HPI and below PMFSH Past Medical History Medical History C. difficile colitis Anxiety Back injury Injury of left hip Right clavicle fracture Left hand fracture Ankle fracture, left Arthritis Kidney infection HSV infection GI bleed Surgical History Surgical History H/O laparoscopy H/O: hemorrhoidectomy S/P LEEP H/O dilation and curettage Family History Family History Father Cancer Hypertension Heart disease Other Diabetes mellitus High cholesterol Social History Social History Social History: She continues to smoke 1 pack a cigarettes a day. She lives with her boyfriend and has 3 children. She is not interested in smoking cessation Code status full code Smoking packs per day: 1 Smoking cigarettes per day: 20.0 Years smoked: 20 Smoking pack-years: 20.00 Smoking status: Current every day smoker Tobacco type: cigarettes Second hand tobacco smoke exposure: Yes Alcohol intake: never Substance use: current Substance use type: marijuana Other substance usage details: every other day Do You Feel Safe in your Home?: Yes Lack of Transportation: No Lack of Food: Never True Current Housing: I Have Housing Concerned About Future Housing: No Difficulty Paying Gas/Electric Bills: No Difficulty Paying for Meds: No Currently Unemployed: No Education: High School Diploma/GED Difficulty w/ Childcare or Family Care: No Living arrangements: with family Gender identity (if verbalized by the patient): Female Sexual Orientation (if Verbalized by the Patient): Straight or Heterosexual Spiritual care concerns: No Comments At time of signature, agree with nursing past medical, surgical, social and family history. There is no relevant family history pertinent to the presenting complaint Exam Narrative: GENERAL: Well-appearing, well-nourished, and in no acute distress. HEAD: Normocephalic, atraumatic. EYES: PERRLA, conjunctivae clear, and EOMI. ENT: Mucous membranes moist. Oropharynx without edema, erythema or lesions. NECK: Supple. No lymphadenopathy CHEST: Clear to auscultation. No respiratory distress.SAO2 100% on room air HEART: Regular rate and rhythm. SKIN: Warm, dry.0.5cm diameter lesion which has some yellow crusty drainage to her right face near mouth minimal surrounding redness NEURO:? Alert and oriented x3. PSYCH: Normal mood and affect Course Course Emergency Course: Patient is aware of diagnosis, understands and agrees to treatment plan.? Anticipatory guidance given.? Patient agrees to follow-up as directed and is aware of reasons to seek care at the emergency department. Portions of this record may have been created with voice recognition software Level of Care: Express Care Visit Vital Signs Vital signs: Vital Signs Temperature 36.4 C L 06/10/25 15:12 Pulse Rate 100 06/10/25 15:12 Respiratory Rate 18 06/10/25 15:12 Blood Pressure 126/80 06/10/25 15:12 Pulse Oximetry 100 06/10/25 15:12 Oxygen Delivery Room Air 06/10/25 15:12 Temperature 36.4 C L 06/10/25 15:12 Pulse Rate 100 06/10/25 15:12 Respiratory Rate 18 06/10/25 15:12 Blood Pressure 126/80 06/10/25 15:12 Pulse Oximetry 100 06/10/25 15:12 Oxygen Delivery Room Air 06/10/25 15:12 Reviewed MDM - Skin/Abscess/Foreign Bdy MDM Narrative Medical decision making narrative: Does not appear at this time to be erythema multiforme, bullous, SJS, TEN; no evidence at this time to suggest RMSF, endocarditis or Lyme disease; patient looks well, nontoxic and is tolerating oral intake; no neurologic signs or symptoms; no headache, photophobia or neck pain; afebrile; appropriate for initial outpatient treatment; discussed the importance of follow-up, patient agrees; question, viral exanthema, contact dermatitis, allergic dermatitis, eczema, urticaria. No soft palate or uvula edema, no tongue, lip edema or other mucosal involvement, no respiratory compromise, no stridor, no wheezing, no wheezing, no history of syncope, no hypotension, no nausea, vomiting, or diarrhea.? Instructed patient to go to nearest ER immediately for any worsening symptoms including but not limited to: fever, spreading rash, pain, sore throat, headache, dizziness, chest pain, trouble breathing, or any symptoms concerning to the patient. Differential Diagnosis Differential diagnosis: Likely abscess of skin or subcutaneous tissue, cellulitis and impetigo Medical Records Attestation: I reviewed the patient's medical records. Critical Care Time Critical Care Time Critical Care Time: No Discharge Plan Discharge Clinical Impression: Impetigo Patient Disposition: Home Condition: Stable Instructions: Antibiotic Form, Impetigo (ED) Additional Instructions: Wash area with liquid Dial soap twice daily rinse pat dry pat dry and apply mupirocin ointment cover if in public watch for increasing infection--redness, swelling, drainage Zyrtec or Claritin for any itching Tylenol or ibuprofen for pain follow up with PCP in 7-10 days for a wound check recheck if develop fever, chills, increasing symptom Go to the ER if your symptoms become worse of if ANY new symptoms develop Take oral antibiotic as prescribed If your symptoms persist, change or worsen significantly before you can contact your personal physician then please, without delay, go to the emergency department for further evaluation. Follow-up with PCP in 7-10 days or sooner if needed Follow up with PCP soon in regards to your blood pressure which is elevated above threshold for referral. Blood pressure above 120/80 may indicate pre-hypertension. 126/80 use good handwashing and do not share towels or wash clothes Patient Language: Stateless Prescriptions: New cephalexin 500 mg capsule 500 mg PO Q12H Qty: 20 0RF mupirocin [Centany] 2 % ointment 1 applic topical BID Qty: 15 0RF No Action omeprazole 40 mg capsule,delayed release(DR/EC) 40 mg PO DAILY multivitamin [Daily Multivitamin] Tablet 1 tablet PO DAILY Follow-up/Referrals: Ascencion Pelayo MD [Primary Care Provider, Family Practice] Stand Alone Forms: Work/School Release IP Time of Disposition: 15:29 [place] Coma Scale Eyes: Open Verbal: Oriented and Alert Motor: Follows Commands Jelena Coma Total Score: 15
== END 2025-06-10 15:36 | disposition home or self-care (01) ==
PROVIDERS: Emergency Provider Registered Nurse; PCP Emergency Medicine
DX: L01.00 Impetigo, unspecified (principal); F17.210 Nicotine dependence, cigarettes, uncomplicated; M19.90 Unspecified osteoarthritis, unspecified site
CPT/HCPCS: 99213; G0463

== ENCOUNTER 2025-06-12 08:27 | Emergency (ER) | payer OTHER, SELFPAY ==
[2025-06-12 08:27] VITALS: BP 134/88; PULSE 86; RESP 13; TEMP 36.7; O2SAT 99
[2025-06-12 10:00] VITALS: BP 138/98; PULSE 78; RESP 14; TEMP 36.8; O2SAT 100
--- NOTE | 2025-06-12 10:01 | ED_ITS ---
HPI - Skin/Abscess/Foreign Bdy General Chief complaint: Skin/Abscess/Foreign Body Stated complaint: wound, fever Time Seen by Provider: 06/12/25 09:15 Source: patient and RN notes reviewed Mode of arrival: ambulatory Limitations: no limitations History of Present Illness HPI narrative: 45-year-old female presents to ER complaining of redness and swelling to the right lower part of her face. They said it started about a week ago she was prescribe cephalexin. Patient says she is taking cephalexin for last 3 days and reports worsening redness and swelling reports that is not getting much better. Patient said her child had wounds on his legs and thinks she got something from him from cleaning his wounds. Patient reports that is draining purulent drainage. Patient reports tactile fevers. Patient said is traveled into the inside of her mouth as well. Patient denies any difficulty breathing, difficulty clearing secretions, difficulty swallowing, body aches, chills, or any other symptoms. Related Data Home Medications ?Medication ?Instructions ?Recorded ?Confirmed ?Last Taken ?Type omeprazole 40 mg capsule,delayed 40 mg PO DAILY 06/12/25 06/11/25 History release multivitamin 1 tablet PO DAILY 01/16/24 0 06/12/25 06/11/25 History Allergies Allergy/AdvReac Type Severity Reaction Status Date / Time amoxicillin AdvReac Intermediate N&V/DROWSY Verified 06/12/25 08:34 meperidine AdvReac Intermediate REDNESS Verified 06/12/25 08:34 AND BURNING AT IV SITE WITH INJECTION clindamycin AdvReac Mild Diarrhea Verified 06/12/25 08:34 Review of Systems Review of Systems: CONSTITUTIONAL: Denies fever, chills, or sweats. EYES: Denies visual changes, redness, or discharge. ENT: Denies rhinorrhea, congestion, sore throat, or otalgia. CARDIOVASCULAR: Denies chest pain, palpitations, or edema. RESPIRATORY: Denies cough or dyspnea. GASTROINTESTINAL: Denies abdominal pain, nausea, vomiting, or diarrhea. GENITOURINARY: Denies dysuria or hematuria. SKIN: Denies rash or itching. Positive for redness and swelling to face. MUSCULOSKELETAL: Denies back pain, joint pain, or myalgia. NEUROLOGIC: Denies headache, numbness, or weakness. PSYCHIATRIC: Denies anxiety or depression. All other systems reviewed are negative, except as documented in HPI. [facility] Past Medical History Medical History C. difficile colitis Anxiety Back injury Injury of left hip Right clavicle fracture Left hand fracture Ankle fracture, left Arthritis Kidney infection HSV infection GI bleed Surgical History Surgical History H/O laparoscopy H/O: hemorrhoidectomy S/P LEEP H/O dilation and curettage Family History Family History Father Cancer Hypertension Heart disease Other Diabetes mellitus High cholesterol Social History Social History Social History: She continues to smoke 1 pack a cigarettes a day. She lives with her boyfriend and has 3 children. She is not interested in smoking cessation Code status full code Smoking packs per day: 1 Smoking cigarettes per day: 20.0 Years smoked: 20 Smoking pack-years: 20.00 Smoking status: Current every day smoker Tobacco type: cigarettes Second hand tobacco smoke exposure: Yes Alcohol intake: never Substance use: current Substance use type: marijuana Other substance usage details: every other day Do You Feel Safe in your Home?: Yes Lack of Transportation: No Lack of Food: Never True Current Housing: I Have Housing Concerned About Future Housing: No Difficulty Paying Gas/Electric Bills: No Difficulty Paying for Meds: No Currently Unemployed: No Education: High School Diploma/GED Difficulty w/ Childcare or Family Care: No Living arrangements: with family Gender identity (if verbalized by the patient): Female Sexual Orientation (if Verbalized by the Patient): Straight or Heterosexual Spiritual care concerns: No Comments At the time of my signature, I reviewed and agree with the nursing past medical, surgical, social, and family history. There is no relevant family history pertinent to the patient complaint. Exam Narrative: GENERAL: This is a well-nourished, well-developed adult, in no apparent distress. They are non ill-appearing, nontoxic appearing. HEAD: normocephalic, atraumatic. EYES: Sclera clear/white. Conjunctiva normal. Vision is grossly intact. Extraocular movements intact EARS: External ears normal, Hearing grossly intact. NOSE: External nose normal THROAT: Mucous membranes moist, NECK: Neck supple, CARDIOVASCULAR: Regular rate and rhythm RESPIRATORY: Respiratory rate normal, respiratory effort nonlabored, no respiratory distress SKIN: Face: Erythematous pustular lesion to the right lower face just below the right lower lip. Pustule traveling to the inside of mucosa of the cheek. Is tender to palpate. It is exudative and draining. Surrounding cellulitis present stain to the right lower facial region. NEURO: awake, alert, and oriented to person, place and time. There were no obvious focal neurologic abnormalities. EXTREMITIES: No joint tenderness, effusion, or edema noted. Course Course Emergency Course: Portions of this record may have been created with voice recognition software Vital Signs Vital signs: Vital Signs Temperature 98.1 F 06/12/25 08:27 Pulse Rate 86 06/12/25 08:27 Respiratory Rate 13 06/12/25 08:27 Blood Pressure 134/88 06/12/25 08:27 Pulse Oximetry 99 06/12/25 08:27 Oxygen Delivery Room Air 06/12/25 08:27 Temperature 98.1 F 06/12/25 08:27 Pulse Rate 86 06/12/25 08:27 Respiratory Rate 13 06/12/25 08:27 Blood Pressure 134/88 06/12/25 08:27 Pulse Oximetry 99 06/12/25 08:27 Oxygen Delivery Room Air 06/12/25 08:27 Reviewed MDM - Skin/Abscess/Foreign Bdy MDM Narrative Medical decision making narrative: Wound culture obtained and pending. Appears patient has cellulitis in his small abscess to her face. Is actively draining. Will cover for MRSA since symptoms are not improving with cephalexin. Prescription of Bactrim sent to pharmacy. Strict ER precautions discussed with patient says she developed worsening re dness, swelling, pain, drainage, fevers, bites, chills, breathing problems, difficulty swallowing, or any serious concerns. Discussed physical exam findings. Advised supportive measures and signs/symptoms to go to the ER. Pt is appropriate for outpt treatment and f/u. Differential Diagnosis Differential diagnosis: Likely abscess of skin or subcutaneous tissue, cellulitis and impetigo Critical Care Time Critical Care Time Critical Care Time: No Discharge Plan Discharge Clinical Impression: Cellulitis and abscess of face Patient Disposition: Home Condition: Stable Instructions: Antibiotic Form, Cellulitis (ED) Additional Instructions: Stop taking cephalexin. Start taking Bactrim. Take Bactrim as directed finish the course completely. It wound cultures sent off and if it is resistant to treatment we contacted started antibiotic. Clean with soap and water only; Avoid using alcohol and peroxide. You may take ibuprofen 600 mg to 800 mg every 6-8 hours. Do not exceed more than 800 mg of ibuprofen per dose. Do not exceed more than 3200 mg ibuprofen in a day. You may take up to 1000 mg Tylenol every 6-8 hours. Do not exceed 1000 mg per dose, do exceed more than 4000 mg of Tylenol in a day. Follow-up PCP in 3-5 days. If the redness and swelling become worse cover you develops fevers, difficulty breathing or feel like is not getting better on [place] atment please return to the ER immediately. Patient Language: [place] Prescriptions: New sulfamethoxazole-trimethoprim [Bactrim DS] 800-160 mg tablet 1 tablet PO Q12H 7 Days Qty: 14 0RF No Action cephalexin 500 mg capsule 500 mg PO Q12H Qty: 20 0RF mupirocin [Centany] 2 % ointment 1 applic topical BID Qty: 15 0RF omeprazole 40 mg capsule,delayed release(DR/EC) 40 mg PO DAILY multivitamin [Daily Multivitamin] Tablet 1 tablet PO DAILY Follow-up/Referrals: Ascencion Pelayo MD [Primary Care Provider, Family Practice] Time of Disposition: 09:40
--- OUTSIDE RECORDS SUMMARY | 2025-06-12 10:24 | XMS_ITS | Clinical Summary ---
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 Not on file Not on file Not on file Obstetrics History Last Filed Vital Signs Vital Sign Reading Time Taken Comments Blood Pressure 118/80 09/11/2024 3:52 PM [employer] Pulse 74 09/11/2024 3:52 PM [employer] Temperature 36.9 C (98.5 F) 01/31/2024 3:00 PM CDT Respiratory Rate 18 09/11/2024 3:52 PM [employer] Oxygen Saturation 99% 09/11/2024 3:52 PM [employer] Inhaled Oxygen Concentration - - Weight 73.4 kg (161 lb 12.8 oz) 09/11/2024 3:52 PM [employer] Height 162.6 cm (5' 4) 09/11/2024 3:52 PM [employer] [facility] Body Mass Index 27.77 09/11/2024 3:52 PM [employer] Plan of Treatment Health Maintenance Due Date [...] (2 - Td or Tdap) 10/29/2028 Insurance [facility] Care Teams Loan Supervisor Relationship Specialty Start Date End Date Ascencion Pelayo MD PCP - General Emergency Medicine 07/01/23
--- OUTSIDE RECORDS SUMMARY | 2025-06-12 10:24 | XMS_ITS | Clinical Summary ---
Author Organization [facility] Address [address] [place] [address] Care Team Providers Care Fnps Name Role Phone Ascencion Pelayo MD Primary Care Provider [phone] Source Comments [facility] and Associated [facility]ician Practices is amultiple site organization consisting of ambulatory clinics and hospital sitesin [place], [place], [place] and [place]. This disclosure is being madepursuant to the Care Everywhere program and may not contain all information available regarding this patient. 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 Gender Identity Not on file Sexual Orientation [...] patient's age to complete this topic Insurance [facility] MEDICAID - OUT [facility] SELF PAY NO INSURANCE Member Subscriber Plan / Payer (Ef fective for All Dates) Name:Anita Perez Member ID:Not on file Relation to Subscriber:Not on file Name:ANITA PEREZ Subscriber ID:Not on file Address: [address] [place] [phone] Payer ID:Not on file Group ID:Not on file Type:Self Pay Address: [place], [place] [facility] SELF PAY NO INSURANCE Member Subscriber Plan / Payer (Ef fective for All Dates) Name:Anita Perez Member ID:Not on file Relation to Subscriber:Not on file Name:ANITA PEREZ Subscriber ID:Not on file Address: [address] [place] [phone] Payer ID:Not on file Group ID:Not on file Type:Self Pay Address: [place], [place] [facility] SELF PAY NO INSURANCE Member Subscriber Plan / Payer (Ef fective for All Dates) Name:Anita Perez Member ID:Not on file Relation to Subscriber:Not on file Name:ANITA PEREZ Subscriber ID:Not on file Address: [address] [place] [phone] Payer ID:Not on file Group ID:Not on file Type:Self Pay Address: [place], [place] Care Teams Fnps Relationship Specialty Start Date End Date Ascencion Pelayo MD [address] [place] [address] [address] [place] [address] PCP - General Family Medicine 07/12/23
--- OUTSIDE RECORDS SUMMARY | 2025-06-12 10:24 | XMS_ITS | Patient Health Record ---
Author Organization formerly [facility] Address [address] [place] [address] Care Team Providers Care Boom Truck Driver Name Role Phone Cece Crowley Primary Care Provider Allergies Allergen (clinical drug ingredient) Drug/Non Drug [...] W/U Status Risk Notes Problem Tobacco user (004428559) Nicotine dependence, unspecified, uncomplicated (F17.200) Active confirmed Problem Spasm of back muscles (459953444) Muscle spasm of back (M62.830) Active confirmed Problem Posttraumatic stress disorder (23143878) PTSD (post-traumatic stress disorder) (F43.10) Active confirmed Problem Generalized anxiety disorder (96505418) RAULITO (generalized anxiety disorder) (F41.1) Active confirmed Problem Visual impairment (632563852) Vision impairment (H54.7) Active confirmed Problem Impacted cerumen of both ears (3634938486520926 ) Impacted cerumen of both ears (H61.23) Active confirmed Problem Recurrent major depression (47204066) Major depressive disorder, recurrent episode with anxious distress (F33.9) Active confirmed Plan Of Treatment No Information Insurance Providers Payer Name Payer Address Payer Phone Subscriber Number Group Number Insured Name Patient Relationship to Insured Coverage Start Date Coverage End Date [employer] [address] [place] [phone] [id number] Donna Perez Self - patient is the insured 2 [employer] [address] [place] [address] [id number] Donna Perez Self - patient is the insured 2 Medical (General) History Medical History History ICD Code anxiety ptsd nicotine dependence Surgical History Surgery Date(Month/Year) Leep Uterus and ovary growth Colposcopy 2 inch tear in colon Hospitalization History Reason Date(Month/Year)
== END 2025-06-12 10:21 | disposition home or self-care (01) ==
PROVIDERS: PCP Emergency Medicine
DX: L02.01 Cutaneous abscess of face (principal); L03.211 Cellulitis of face; M19.90 Unspecified osteoarthritis, unspecified site; F17.210 Nicotine dependence, cigarettes, uncomplicated
CPT/HCPCS: 87070; 87075; 87186; 99283

== ENCOUNTER 2025-07-25 11:00 | Emergency (ER) | payer OTHER, SELFPAY ==
[2025-07-25 11:06] VITALS: BP 120/64; PULSE 93; RESP 18; TEMP 36.3; O2SAT 100
--- NOTE | 2025-07-25 11:13 | ED.FEMALEGU ---
HPI - Female Genitourinary General Chief complaint: Urogenital-Female Stated complaint: UTI Time Seen by Provider: 07/25/25 11:08 Source: patient and RN notes reviewed Mode of arrival: ambulatory Limitations: no limitations History of Present Illness HPI Narrative: 45-year-old female presents with concern for urinary tract infection. She reports a 5 day history of symptoms of frequency, dysuria, lower abdominal pressure. Reports she took sulfa antibiotics set up for horses for for 5 days. Reports that helped in the beginning but in no longer is improving her symptoms. She denies fever, body aches, chills, sweats. She denies nausea or vomit MD elicited complaint: UTI Related Data Home Medications ?Medication ?Instructions ?Recorded ?Confirmed ?Last Taken ?Type omeprazole 40 mg capsule,delayed 40 mg PO DAILY 11/01/23 07/25/25 06/11/25 History release multivitamin 1 tablet PO DAILY 01/16/24 07/25/25 06/11/25 History Allergies Allergy/AdvReac Type Severity Reaction Status Date / Time amoxicillin AdvReac Intermediate N&V/DROWSY Verified 07/25/25 11:05 meperidine AdvReac Intermediate REDNESS Verified 07/25/25 11:05 AND BURNING AT IV SITE WITH INJECTION clindamycin AdvReac Mild Diarrhea Verified 07/25/25 11:05 Review of Systems Review of Systems: CONSTITUTIONAL: Denies malaise, chills, sweats, or fever. CARDIOVASCULAR: Denies chest pain, palpitations, or edema. RESPIRATORY: Denies cough or dyspnea. GASTROINTESTINAL: Denies abdominal pain, nausea, vomiting, diarrhea GENITOURINARY: Reports dysuria, frequency, urgency, suprapubic pressure. Denies flank pain or hematuria. SKIN: Denies rash or itching. MUSCULOSKELETAL: Denies back pain or myalgia. All systems reviewed & are unremarkable except as noted in HPI and below PMFSH Past Medical History Medical History C. difficile colitis Anxiety Back injury Injury of left hip Right clavicle fracture Left hand fracture Ankle fracture, left Arthritis Kidney infection HSV infection GI bleed Surgical History Surgical History H/O laparoscopy H/O: hemorrhoidectomy S/P LEEP H/O dilation and curettage Family History Family History Father Cancer Hypertension Heart disease Other Diabetes mellitus High cholesterol Social History Social History Social History: She continues to smoke 1 pack a cigarettes a day. She lives with her boyfriend and has 3 children. She is not interested in smoking cessation Code status full code Smoking packs per day: 1 Smoking cigarettes per day: 20.0 Years smoked: 20 Smoking pack-years: 20.00 Smoking status: Current every day smoker Tobacco type: cigarettes Second hand tobacco smoke exposure: Yes Alcohol intake: never Substance use: current Substance use type: marijuana Other substance usage details: every other day Do You Feel Safe in your Home?: Yes Lack of Transportation: No Lack of Food: Never True Current Housing: I Have Housing Concerned About Future Housing: No Difficulty Paying Gas/Electric Bills: No Difficulty Paying for Meds: No Currently Unemployed: No Education: High School Diploma/GED Difficulty w/ Childcare or Family Care: No Living arrangements: with family Gender identity (if verbalized by the patient): Female Sexual Orientation (if Verbalized by the Patient): Straight or Heterosexual Spiritual care concerns: No Comments At time of signature, agree with nursing past medical, surgical, social and family history. There is no relevant family history pertinent to the presenting complaint Exam Narrative: GENERAL: Well-appearing, well-nourished, and in no acute distress. HEAD: Normocephalic. EYES: PERRLA, conjunctivae clear. NECK: Supple. No lymphadenopathy CHEST: Clear to auscultation. No respiratory distress. HEART: Regular rate and rhythm. ABDOMEN: Soft, nontender upon palpation, nondistended, no palpable or pulsatile masses, no guarding. No CVA tenderness SKIN: Warm, dry, no rash. NEURO: Alert and oriented x3. PSYCH: Normal mood and affect Course Course Emergency Course: Patient is aware of diagnosis, understands and agrees to treatment plan. Anticipatory guidance given. Patient agrees to follow-up as directed and is aware of reasons to seek care at the emergency department. Portions of this record may have been created with voice recognition software Level of Care: Express Care Visit Vital Signs Vital signs: Vital Signs Temperature 97.3 F L 07/25/25 11:06 Pulse Rate 93 07/25/25 11:06 Respiratory Rate 18 07/25/25 11:06 Blood Pressure 120/64 07/25/25 11:06 Pulse Oximetry 100 07/25/25 11:06 Oxygen Delivery Room Air 07/25/25 11:06 Temperature 97.3 F L 07/25/25 11:06 Pulse Rate 93 07/25/25 11:06 Respiratory Rate 18 07/25/25 11:06 Blood Pressure 120/64 07/25/25 11:06 Pulse Oximetry 100 07/25/25 11:06 Oxygen Delivery Room Air 07/25/25 11:06 Reviewed. MDM - Female Genitourinary MDM Narrative Medical decision making narrative: Exam findings and UA show no acute concerns or changes; patient is non-toxic appearing and is in no distress. Patient is appropriate for outpatient treatment and follow-up. Differential Diagnosis Differential diagnosis: Likely urinary tract infection and cystitis Critical Care Time Critical Care Time Critical Care Time: No Discharge Plan Discharge Clinical Impression: Urinary tract infection Patient Disposition: Home Condition: Stable Instructions: Antibiotic Form, Urinary Tract Infection in Women (ED) Additional Instructions: We will send a urine culture to the lab; if the culture identifies an organism that the prescribed antibiotic will not treat, you will receive a phone call from an urgent care staff member and an appropriate antibiotic will be prescribed. -Your symptoms should begin to improve within a day of starting antibiotics. But you should finish all the antibiotic pills you get. Otherwise your infection might come back. -Also recommend: increase water intake. Tylenol/ibuprofen as needed for pain or fever -Follow-up with your primary care provider for urine recheck or seek ER visit if condition worsens with high fever, nausea, vomiting and severe back pain. Patient Language: Serbian Prescriptions: New ciprofloxacin HCl 500 mg tablet 500 mg PO Q12H 7 Days Qty: 14 0RF No Action omeprazole 40 mg capsule,delayed release(DR/EC) 40 mg PO DAILY multivitamin [Daily Multivitamin] Tablet 1 tablet PO DAILY Follow-up/Referrals: Ascencion Pelayo MD [Primary Care Provider, [facility]] Time of Disposition: 11:17
[2025-07-25 11:15] LABS: EDUAAPPEAR Cloudy; EDUABILI 1+ (Negative); EDUABLOOD Trace (Negative); EDUACOLOR1 Yellow; EDUAGLUCOSE Negative (Negative); EDUAKETONE Trace (Negative); EDUALEUKO 1+ (Negative); EDUANITRATE Positive (Negative); EDUAPH 6.0; EDUAPROTEIN Trace (Negative); EDUASPGRAVITY 1.030; EDUAUROBILI 0.2
--- OUTSIDE RECORDS SUMMARY | 2025-07-25 12:08 | XMS_ITS | Clinical Summary ---
Author Organization [facility] Address [address] [place] [address] Care Team Providers Care Strategy Intern Name Role Phone Ascencion Pelayo MD Primary Care Provider [phone] Source Comments [facility] [facility] and Associated Physician Practices is amultiple site organization consisting of ambulatory clinics and hospital sitesin [place], [place], [place] and [place]. This disclosure is being madepursuant to the Care Everywhere program and may not contain all information available regarding this patient. 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 Gender Identity Not on file Sexual [...] patient's age to complete this topic Insurance [facility] MEDICAID - OUT [facility] SELF PAY NO INSURANCE Member Subscriber Plan / Payer (Ef fective for All Dates) Name:Anita Perez Member ID:Not on file Relation to Subscriber:Not on file Name:ANITA PEREZ Subscriber ID:Not on file Address: [address] [place] [phone] Payer ID:Not on file Group ID:Not on file Type:Self Pay Address: [place], [place] [facility] SELF PAY NO INSURANCE Member Subscriber Plan / Payer (Ef fective for All Dates) Name:Anita Perez Member ID:Not on file Relation to Subscriber:Not on file Name:ANITA PEREZ Subscriber ID:Not on file Address: [address] [place] [phone] Payer ID:Not on file Group ID:Not on file Type:Self Pay Address: [place], [place] [facility] SELF PAY NO INSURANCE Member Subscriber Plan / Payer (Ef fective for All Dates) Name:Anita Perez Member ID:Not on file Relation to Subscriber:Not on file Name:ANITA PEREZ Subscriber ID:Not on file Address: [address] [place] [phone] Payer ID:Not on file Group ID:Not on file Type:Self Pay Address: [place], [place] Care Teams Strategy Intern Relationship Specialty Start Date End Date Ascencion Pelayo MD [address] [place] [address] [address] [place] [address] PCP - General Family Medicine 07/12/23
--- OUTSIDE RECORDS SUMMARY | 2025-07-25 12:08 | XMS_ITS | Clinical Summary ---
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 Not on file Not on file Not on file Obstetrics History Last Filed Vital Signs Vital Sign Reading Time Taken Comments Blood Pressure 118/80 09/11/2024 3:52 PM LEAD INSTRUCTOR/FLIGHT ATTENDANT Pulse 74 09/11/2024 3:52 PM LEAD INSTRUCTOR/FLIGHT ATTENDANT Temperature 36.9 C (98.5 F) 01/31/2024 3:00 PM CDT Respiratory Rate 18 09/11/2024 3:52 PM LEAD INSTRUCTOR/FLIGHT ATTENDANT Oxygen Saturation 99% 09/11/2024 3:52 PM LEAD INSTRUCTOR/FLIGHT ATTENDANT Inhaled Oxygen Concentration - - Weight 73.4 kg (161 lb 12.8 oz) 09/11/2024 3:52 PM LEAD INSTRUCTOR/FLIGHT ATTENDANT Height 162.6 cm (5' 4) 09/11/2024 3:52 PM LEAD INSTRUCTOR/FLIGHT ATTENDANT Body Mass Index 27.77 09/11/2024 3:52 PM LEAD INSTRUCTOR/FLIGHT ATTENDANT Plan of Treatment Health Maintenance Due Date [...] (2 - Td or Tdap) 10/29/2028 Insurance [facility] Care Teams Ingot Caster Relationship Specialty Start Date End Date Ascencion Pelayo MD PCP - General Emergency Medicine 07/01/23
--- OUTSIDE RECORDS SUMMARY | 2025-07-25 12:12 | XMS_ITS | Data Portability ---
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 We spent over 40 minutes [id number]. More 50% was Counseling [email or web address] Not available 11/03/2023 17:14:30 10/04/2024 10/04/2024 Annual gynecological exam performed. Patient will come back in a year unless there are new symptoms. [email or web address] Not available 10/04/2024 11:00:15 Plan of Treatment Reminders Order Date Submit Date Provider Last Modified By Organization Details Last Modified Time Details Appointments None recorded. Lab None recorded. Referral None recorded. Procedures None recorded. Surgeries robotic assisted hysterectom y with salpingecto my (SURG) 2024 07/ 025 [facility], [facility], [place], [address], 07/22/202 5 11:09:13 hysteroscop y, with endometrial ablation (SURG) 2023 024 [email or web address] [facility], [address], [place], [address], 5 16:25:33 salpingecto my, laparoscopi c (SURG) 2023 024 [id number] [facility], [address], [place], [address], 4 11:08:34 Imaging US, transvagina l 2024 025 [email or web address] [place], [address], [place], [address], 5 14:33:57 US, pelvis, complete 2024 025 [email or web address] [address], [address], [place], [address], 5 18:44:19 US, transvagina l 2023 024 [email or web address] [address], [address], [place], [address], 4 22:06:35 Medication Orders None recorded. Patient [...] Repor t Case: [id number] Autho ribharathn g Provi dora: Marquita Jones NP Colle cted: 10/04 1130 Order ing Locat ion: [place] [facility] Recei bakari: 10/05 0847 First Scree n: Angela Nichole , CT Speci men: Frankie ibarra Pap - Image d, Cervi x STATE MENT OF ADEQU ACY: Satis facto ry for evalu ation Trans forma tion zone compo nent prese nt Cr whitt ring infla mmati on prese nt. ----- ----- ----- ----- ----- ----- ----- ----- ----- ----- ----- ----- ----- ----- ----- ----- ----- ---- FINAL DIAGN OSIS: Negat ilana for Intra epith surekha jaime or David bkaer ([facility]) . 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 Not Available [facility] (Lab) [address], [place], [address], 10/12/2024 16:14:35 10/27/19 24 10/25/2023 MAMMO , diagn ostic , digit al, bilat eral No observ ation record ed. [facility] [address] [facility] [address], [place], [address], 10/28/2023 16:21:40 11/02/19 24 11/03/2023 US, trans lita al No observ ation record ed. [facility] [address], [place], [address], 11/03/2023 12:27:47 11/02/19 24 11/02/2023 US, trans kyein al No observ ation record ed. [address] [facility], [place], [address], 11/03/2023 17:30:48 10/11/19 25 10/11/2024 US, trans kyein al No observ ation record ed. [facility] [address], [place], [address], 10/11/2024 18:48:38 10/11/19 25 10/11/2024 US, trans vagin al No observ ation record ed. [email or web address] [facility] [address], [place], [address], 10/11/2024 20:12:44 Result Notes None recorded. Problems Name Problem SNOMED Code Status Onset Date Resolution Date Notes Provider Name and Address Organization Details Recorded Time Low-lyin g placenta 586394155 Completed 04/10/2020 resolved [facility] 13:28:31 Gastroes ophageal reflux disease 101329633 Completed [facility] 13:28:32 Past pregnanc y history of pre-ecla mpsia 35098732065 9100 Completed per mfm take baby asa [facility] 13:28:32 Blood coagulat ion disorder 74759786 Completed saw mfm does not need anticoag ulation meds [facility] 13:28:31 History of loop electros urgical excision procedur e [id number] 102 Completed MFM - 02/19 noted CL at 16wks, pt no showed. CL is WNL - per Daly 05/12 no other ultrasou nds are needed. [facility] Frankie [facility] 13:28:32 Proteinu donis 65694159 Completed 201010/21/2020 Proteinu donis;Prac monse ID: 0001 Grace Nazario [facility] 10:17:56 Anxiety state 035341375 Active 2010 Anxiety state, unspecif ied;Prac monse ID: 0001 Not Available [facility] 0 16:49:07 Cytologi c finding Completed 201010/21/2020 Pap Abnormal LGSIL;Pr actice ID: 0001 Grace hendrix, [facility] 1 10:16:00 Anorecta l disorder 307517485 Completed 201010/21/2020 Other specifie d disorder s of rectum and anus;Rec orded Elsewher e: No Locat ion: [facility] S ource: EHR Weight Loss Consultant luis m: N Practi ce ID: 0001 Leonardo lable Time: 03:45:00 PM Grace hendrix, [facility] 1 10:15:47 Genital herpes simplex 99413937 Active 2010 Genital herpes, unspecif ied;Prac monse ID: 0001 Not Available [facility] 0 16:49:07 Ill-defi rashmi intestin al infectio n Completed 201010/21/2020 No Show Fee;Prac monse ID: 0001 Grace hendrix, [facility] 1 10:16:50 Screenin g for malignan t neoplasm of cervix Completed 201210/21/2020 Screenin g for malignan t neoplasm s of the cervix;R ecorded Elsewher e: No Locat ion: [facility] S ource: EHR Weight Loss Consultant luis m: N Practi ce ID: 0001 Leonardo lable Time: 10:15:00 AM Grace hendrix [facility] 1 10:18:05 Pregnanc y test positive 786861388 Completed 201210/21/2020 Pregnanc y examinat ion or test, positive result;R ecorded Elsewher e: No Locat ion: [facility] S ource: EHR Weight Loss Consultant luis m: N Practi ce ID: 0001 Leonardo lable Time: 10:15:00 AM Grace hendrix [facility] 1 10:17:11 Speciali zed medical examinat ion Completed 201210/21/2020 Gynecolo gical Examinat ion;Silvano rded Elsewher e: No Locat ion: Hector herr [facility] S ource: EHR Weight Loss Consultant luis m: N Practi ce ID: 0001 Leonardo lable Time: 10:15:00 AM Grace Lange [facility], [facility] 1 10:17:30 Uterine size for dates discrepa ncy 957057508 Completed 201210/21/2020 UTERINE SIZE TREVA-ANTE PAR;Silvano rded Elsewher e: No [facility] S ource: EHR Weight Loss Consultant luis m: N Practi ce ID: 0001 Leonardo lable Time: 01:30:00 PM Grace Lange [facility], [facility] 1 10:17:48 Cytologi c finding Completed 201210/21/2020 Papanico laou smear of cervix with high grade squamous intraepi thelial lesion (HGSIL); Recorded Elsewher e: No Locat ion: [facility] S ource: EHR Weight Loss Consultant luis m: N Practi ce ID: 0001 Leonardo lable Time: 03:30:00 PM Grace Lange [facility], [facility] 1 10:16:02 Routine antenata l care Completed 201310/21/2020 Supervis ion of other normal pregnanc y;Record ed Elsewher e: No Locat ion: [facility] S ource: EHR Weight Loss Consultant luis m: N Practi ce ID: 0001 Leonardo lable Time: 02:30:00 PM Grace Lange [facility] 1 10:17:59 Amenorrh ea 13246075 Completed 201310/21/2020 Absence of menstrua tion;Rec orded Elsewher e: No Locat ion: [facility] S ource: EHR Weight Loss Consultant luis m: N Practi ce ID: 0001 Leonardo lable Time: 02:30:00 PM Grace Lassitertz simeon [facility] 1 10:15:45 Ultrason ography Completed 201310/21/2020 Antenata l screenin g for malforma tion using ultrason ics;Silvano rded Elsewher e: No Locat ion: [facility] S ource: EHR Weight Loss Consultant luis m: N Kishati ce ID: 0001 Leonardo lable Time: 10:30:00 AM Grace hendrix, [facility] 1 10:17:42 Antenata l screenin g Completed 201310/21/2020 Antenata l screenin g for malforma tion using ultrason ics;Silvano rded Elsewher e: No Locat ion: [facility] S ource: EHR Weight Loss Consultant luis m: N Kishati ce ID: 0001 Leonardo lable Time: 10:30:00 AM Graceyvette Lange [facility], [facility] 1 10:15:50 Congenit al malforma tion 286532872 Completed 201310/21/2020 Antenata l screenin g for malforma tion using ultrason ics;Silvano rded Elsewher e: No Locat ion: [facility] S ource: EHR Weight Loss Consultant luis m: N Kishati ce ID: 0001 Leonardo lable Time: 10:30:00 AM Grace Lange [facility] 1 10:15:56 High risk pregnanc y care Completed 201310/21/2020 Supervis ion of other high-ris k pregnanc y;Record ed Elsewher e: No Locat ion: [facility] S ource: EHR Weight Loss Consultant luis m: N Practi ce ID: 0001 Leonardo lable Time: 10:15:00 AM Grace Lange [facility], [facility] 1 10:16:14 Hemorrho ids 68757548 Active 2014 Hemorrho id;Recor ded Elsewher e: No Locat ion: [facility] S ource: EHR Weight Loss Consultant luis m: N Practi ce ID: 0001 Leonardo lable Time: 01:00:00 PM Not Available [facility] 0 16:49:04 Spontane ous ecchymos is 374663965 Completed 201410/21/2020 Spontane ous ecchymos es;Recor ded Elsewher e: No Locat ion: [facility] S ource: EHR Weight Loss Consultant luis m: N Practi ce ID: 0001 Leonardo lable Time: 01:00:00 PM Grace hendrix, [facility] 1 10:17:33 Ulcerati on of vulva 57514944 Completed 201510/21/2020 Ulcerati on of vulva;Re corded Elsewher e: No Locat ion: [facility] S ource: EHR Weight Loss Consultant luis m: N Practi ce ID: 0001 Leonardo lable Time: 01:45:00 PM Grace hendrix, [facility] 1 10:17:40 Acute vaginiti s 48362971 Completed 201610/21/2020 Acute vaginiti s;Practi ce ID: 0001 Grace hendrix, [facility] 10:15:43 Postcoit al finding 053947709 Completed 201610/21/2020 Postcoit al and contact bleeding ;Practic e ID: 0001 Grace hendrix, [facility] 1 10:17:02 Pregnanc y test negative 233371754 Completed 201610/21/2020 Encounte r for pregnanc y test, result negative ;Practic e ID: 0001 Grace hendrix, [facility] 1 10:17:08 Infectio n screenin g Completed 201610/21/2020 Encounte r for screenin g for oth infec/pa rastc diseases ;Recorde d Elsewher e: No Locat ion: [facility] S ource: EHR Weight Loss Consultant luis m: N Kishati ce ID: 0001 Leonardo lable Time: 03:45:00 PM Grace L[facility]it[facility]z [facility] 10:16:56 Syphilis test finding 061526041 Completed 201610/21/2020 Encntr screen for infectio ns w sexl mode of transmis s;Record ed Elsewher e: No Locat ion: [facility] S ource: EHR Weight Loss Consultant luis m: N Kishati ce ID: 0001 Leonardo lable Time: 03:45:00 PM Grace Lange [facility], [facility] 10:17:36 Urinary tract infectio us disease 05228345 Completed 201610/21/2020 UTI;Silvano rded Elsewher e: No Locat ion: [facility] S ource: EHR Weight Loss Consultant luis m: N Kishati ce ID: 0001 Leonardo lable Time: 04:15:00 PM Grace Lange [facility] 10:17:45 Blood leukocyt e number above referenc e range 758172832 Completed 201610/21/2020 Elevated white blood cell count, unspecif ied;Silvano rded Elsewher e: No [facility] S ource: EHR Weight Loss Consultant luis m: N Kishati ce ID: 0001 Leonardo lable Time: 04:15:00 PM Grace Lange simeon, [facility] 10:16:53 Evaluati on finding Completed 201610/21/2020 Hematuri a, unspecif ied;Silvano rded Elsewher e: No Locat ion: [facility] carmenza [facility] S ource: EHR Weight Loss Consultant luis m: N Kishati ce ID: 0001 Leonardo lable Time: 04:15:00 PM Grace Lange [facility] 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 10:17:23 Pelvic and perineal pain 537824760 Completed 201810/21/2020 Pelvic and perineal pain;Pra ctice ID: 0001 Grace Lange [facility] 1 10:16:59 Procedur e on genitour inary system Completed 201810/21/2020 Encounte r for surgical aftcr followin g surgery on the sys;Prac monse ID: 0001 Grace Lange [facility] 10:18:02 Postoper ative care Completed 201810/21/2020 Encounte r for surgical aftcr followin g surgery on the sys;Prac monse ID: 0001 Grace Lange [facility] 1 10:17:04 Pregnanc y 09550843 Completed 201910/20/2020 Ruddy David [facility] 13:28:36 Human papillom a virus infectio n 904891038 Completed 201910/21/2020 high risk + Grace Lange [facility] 1 10:16:47 Abnormal cervical Papanico laou smear 673350487 Active 2019 HPV18, HPV high risk / 2019 lgsil HPV high risk Grace Lassitertz [facility] 0 16:10:35 Problem Notes None recorded. Procedures Surgical History Date Name Laterality Status Provider Name and Address Organization Details Recorded Time 024 SALPINGECTOMY, LAPAROSCOPIC (SURG) completed [facility] 12/28/2023 15:06:07 024 Date of Last Mammogram completed [facility] 10/04/2024 11:04:05 023 Date of Last Pap Smear completed [facility] 10/04/2024 10:55:21 020 Colposcopy completed Jorge Luis Thomas MD [address], [place], [address], [facility] 04/08/2020 11:06:00 019 Ovarian Cystectomy completed [facility] 01/21/2020 17:25:49 018 hemorrhoidectomy completed [facility] 01/21/2020 17:24:17 017 Colposcopy completed [facility] 12/14/2022 20:00:50 017 Colposcopy completed [facility] 12/14/2022 20:01:38 017 hemorrhoidectomy completed [facility] 01/21/2020 17:24:41 013 Colposcopy completed [facility] 12/14/2022 20:01:44 013 LEEP completed [facility] 01/21/2020 17:24:53 001 Dilation and Curettage completed [facility] 01/21/2020 17:26:33 000 Dilation and Curettage completed [facility] 12/14/2022 20:01:25 endometrial ablation completed Marquita LaMay, [facility] [address], [place], [address], [place] [facility] 10/04/2024 14:00:31 Imaging Results None recorded. Procedure Notes None recorded. Medical Equipment None Reported. Allergies Allergen ID Allergen Name Allergen Category Reaction Reaction Severity Criticality Documentation Date Start Date Code Code System Note Provider Name and Address Organization Details Recorded Time 97090 Demerol medicatio n Not available Not available Not available 10/22/2020 03224 1 RxNorm Grace Lange [facility] 1 14:40:13 33965 amoxicill in medicatio n Not available Not available Not available 10/22/2020 723 RxNorm Grace Lange [facility] 1 14:40:21 75604 Product containin g penicilli n (product) medicatio n Not available Not available Not available 10/22/2020 48796 8001 SNOMED Grace Lange [facility], [facility] 1 14:40:42 267 meperidin e medicatio n Not available Not available Not available 01/21/2020 6754 RxNorm Kalie Remy [facility], [facility] 0 17:23:21 Medications Name Sig Start [...] TABLET BY MOUTH DAILY FOR 4 DAYS 04/21 completed Not Available Not Available Not Available [...] Prescrib ed Elsewher e: No Locat ion: [facility] odify By: amkuhlan Herr ncounter DateTime : 10/09/19 13 10:01:47 AM Not Available Not Available Not Available clindamyc in HCl 150 mg capsule TAKE 3 CAPSULES BY MOUTH EVERY 8 HOURS FOR 7 DAYS 12/02 completed Not Available Not Available Not Available metronida zole 500 mg tablet Take 1 tablet twice a day by oral route for 7 days. 04/21 completed Not Available Not Available Not Available [...] Prescrib ed Elsewher e: No [facility] By: orly pradhan DateTime : 06/14/20 [...] Prescrib ed Elsewher e: No Locat ion: [facility] odify By: deisi keysuntscout DateTime : 05/24/20 02:18:49 PM Not Available Not Available Not Available cephalexi n 500 mg capsule TAKE 1 CAPSULE BY MOUTH EVERY 8 HOURS 12/02 completed Not Available Not Available Not Available erythromy chrissy 5 mg/gram (0.5 %) eye ointment APPLY 1/2 INCH IN EACH EYE FOUR TIMES DAILY FOR 5 DAYS 04/21 completed Not Available Not Available Not Available [...] Prescrib ed Elsewher e: No Locat ion: [facility] odify By: orly pradhan DateTime : 02/20/20 14 10:11:20 AM Not Available Not Available Not Available fluoxetin e 20 mg capsule TAKE 1 CAPSULE BY MOUTH EVERY DAY 12/02 completed Not Available Not Available Not Available fluticaso ne propionat e 50 mcg/actua tion nasal spray,miguel pension INSTILL 1 SPRAY IN EACH NOSTRIL TWICE DAILY active Not Available Not Available No t Available naproxen 500 mg tablet 02/17 completed [...] Prescrib ed Elsewher e: No Locat ion: [facility] odify By: deisi keysuntscout DateTime : 08/12/20 15 01:00:00 PM Not Available Not Available Not Available cyclobenz aprine 5 mg tablet 12/02 completed Not Available Not Available Not Available aspirin 10/22 completed Not Available Not Available Not Available 10/22 completed Not Available Not Available Not Available Triveen-D uo DHA 29 mg-1 mg-400 mg oral pack take 1 by Oral route every day 08/12 completed Prescrib ed Elsewher e: No Locat ion: [facility] odify By: orly pradhan DateTime : 02/13/20 [...] Prescrib ed Elsewher e: No Locat ion: [facility] odify By: deisi keysuntscout DateTime : 08/12/20 15 01:00:00 PM Not Available Not Available Not Available Slynd 4 mg (28) tablet TAKE 1 TABLET BY MOUTH EVERY DAY 12/02 completed Not Available Not Available Not Available Daily-Vit e (with folic acid) 400 mcg tablet active Not Available Not Available Not Available Vitals Date Recorded Body height Body mass index (BMI) Body weight Systolic And Diastolic Provider Name and Address Organization Details Last Updated DateTime 10/04/2024 160.02 cm 29.2 kg/m2 51886.74 g 116/77 mm[Hg] Karlie Holt [facility] 10/04/2024 11:01:13 Date Recorded Body height Body mass index (BMI) Body weight Systolic And Diastolic Provider Name and Address Organization Details Last Updated DateTime 10/12/2024 160.02 cm 29.2 kg/m2 98540.74 g 113/70 mm[Hg] Wen Obed [facility] 10/12/2024 10:20:11 Date Recorded Body height Body mass index (BMI) Body weight Systolic And Diastolic Provider Name and Address Organization Details Last Updated DateTime 11/03/2023 160.02 cm 29.4 kg/m2 69216.33 g 119/80 mm[Hg] Parul Hull [facility] 11/03/2023 16:41:33 Social History Question Answer Notes LastModified by Organizat ion Details LastModified Time Tobacco Smoking Status Current Every Day Smoker Grace hendrix, [facility] 12/02/2022 11:37:30 If You Are , What Was Your Level Of Alcohol Consumption Prior To ? Occasional [email or web address] Information not available 12/02/2022 How Many Years Have You Consumed Alcohol? 0 [email or web address] Information not available 12/02/2022 Are You Blind Or Do You Have Difficulty Seeing? No [email or web address] Information not available 12/02/2022 What Is Your Level Of Caffeine Consumption? Heavy [email or web address] Information not available 10/22/2020 In The 14 Days Before Symptom Onset, Have You Had Close Contact With A Laboratory-[facility] COVID-19 While That Case Was Ill? No Information not available 12/02/2022 In The 14 Days Before Symptom Onset, Have You Had Close Contact With A Person Who Is Under Investigation For COVID-19 While That Person Was Ill? No [email or web address] Information not available 12/02/2022 Have You Been To An Area Known To Be High Risk For COVID-19? No [email or web address] Information not available 12/02/2022 Are You Deaf Or Do You Have Serious Difficulty Hearing? No Information not available 09/28/2023 What Type Of Diet Are You Following? REGULAR [email or web address] Information not available 12/02/2022 Which Illicit Or Recreational Drugs Have You Used? Marijuana [email or web address] Information not available 12/02/2022 What Is The Highest Grade Or Level Of School You Have Completed Or The Highest Degree You Have Received? [id number] [email or web address] Information not available 12/02/2022 How Many Days Of Moderate To Strenuous Exercise, Like A Brisk Walk, Did You Do In The Last 7 Days? 3 [email or web address] Information not available 12/02/2022 On Those Days That You Engage In Moderate To Strenuous Exercise, How Many Minutes, On Average, Do You Exercise? 60 [email or web address] Information not available 12/02/2022 Are There Any Guns Present In Your Home? No [email or web address] Information not available 12/02/2022 How Many Years Have You Used Illicit Or Recreational Drugs? 20 [email or web address] Information not available 12/02/2022 What Was The Date Of Your Most Recent Tobacco Screening? 10/22/2020 [email or web address] Information not available 12/02/2022 Have You Ever Been Counseled For Unhealthy Alcohol Use? No [email or web address] Information not available 12/02/2022 Do You Use Protection During Sex? No Information not available 12/02/2022 Do You Use Your Seat Belt Or Car Seat Routinely? Yes [email or web address] Information not available 12/02/2022 Do You Have Smoke And Carbon Monoxide Detectors In Your Home? Yes [email or web address] Information not available 12/02/2022 At What Age Did You Start Smoking Tobacco? 15 [email or web address] Information not available 10/22/2020 How Much Tobacco Do You Smoke? 1 PPD [email or web address] Information not available 10/22/2020 Do You Use Sunscreen Routinely? No [email or web address] Information not available 12/02/2022 Has Tobacco Cessation Counseling Been Provided? No [email or web address] Information not available 12/02/2022 Have You Used IV Drugs? No [email or web address] Information not available 10/22/2020 Do You Have Difficulty Walking Or Climbing Stairs? No Information not available 09/28/2023 Sex: Unknown Functional Status Question Answer Note LastModified by Organizat ion Details LastModified Time Do you use any illicit or recreational drugs? No Information not available 12/02/2022 Do you or have you ever used any other forms of tobacco or nicotine? No [email or web address] Information not available 12/02/2022 What is your level of alcohol consumption? Occasional [email or web address] Information not available 10/22/2020 Do you or have you ever used smokeless tobacco? Never used smokeless tobacco Information not available 12/02/2022 Are you able to walk independently without assistance or assistive devices? YESWOREST [email or web address] Information not available 12/02/2022 Are you able to care for yourself independently? 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 No Information not available 09/28/2023 Do you or have you ever used e-cigarettes or vape? Never used electronic cigarettes [email or web address] Information not available 12/02/2022 What is your exercise level? Moderate [email or web address] Information not available 01/22/2020 Mental Status Question Answer Note LastModified by Organization D etails LastModified Time Do you feel stressed (tense, restless, nervous, or anxious, or unable to sleep at night)? [id number] [email or web address] Information not available 12/02/2022 Family History Relationship Description Onset Age of [...] history of malignant neoplasm cervic al cancer [email or web address] Not available 10/11/2024 17:22:53 Father Family history of malignant neoplasm of prostate [email or web address] Not available 2024 17:22:53 Medical History Condition Response Allergies (Food, seasonal, environmental ) N Other Y Breast Cancer N Drug/Latex Allergies/Reactions Y Blood Transfusion N Dermatologic Disorders N Lung Disease N Defects or Inherited Disease N Breast Problem N Gestational Diabetes N Hematologic disorders N Anesthesia Complications N History of STI Y Deep Vein Thrombosis N Polycystic ovary syndrome N Anxiety Disorder Y Autoimmune disease N Arthritis N Infertility N Polyps N Acid Reflux (GERD) N History of abnormal pap Y Cancer N Stroke N Varicosities N Neurologic/Epilepsy N Endometriosis N High Cholesterol N Headaches N Fibromyalgia N Kidney Disease N Heart Problems N Kidney or Bladder Problems N Thyroid Problems N GI Problems Y Eating Disorder [...] Diagnosis SNOMED-CT Code Diagnosis ICD10 Code Diagnosis IMO Codes Diagnosis Note [id number] KARLEY Funez [address] [address] 01/22/2020 15:49:33 01/22/2020 16:45:18 Gynecologic examination 56988046 Z01.419 test positive 514788900 Z32.01 Risk factors addressed: Tobacco Cessation, Safe [...] was 6 years ago. Task sent to [facility] to schedule. 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 She will not be riding during the . Discussed precaution s. If previous , counseling .Pt verbalizes that she understand s the importance of above instructio ns.All questions were answered. Patient reminded to have annual well woman examinatio n and address [facility] . [id number] Jorge Luis Thomas MD [place] [address] [address] 02/18/2020 13:48:05 02/18/2020 14:33:15 screening 701651395 Z36.82 4611 Jorge Luis Thomas MD [place] [address] [address] 02/18/2020 13:48:50 02/18/2020 15:30:38 screening 564070017 Z36.89 Routine an tenatal care 944569900 Z34.81 6440 Jorge Luis Thomas MD [place] [address],[place] [address] 03/25/2020 16:01:38 03/31/2020 11:00:52 8437 Jorge Luis Thomas MD [place] [address],[place] [address] 03/20/2020 10:15:30 03/20/2020 11:02:08 Routine care 814442692 Z34.81 8501 Jorge Luis Thomas MD [place] [address],[place] [address] 03/20/2020 12:30:30 03/20/2020 13:36:37 Medical examination for suspected condition 446747243 Z03.75 [id number] Jorge Luis Thomas MD [place] [address],[place] [address] 04/08/2020 10:26:56 04/08/2020 13:15:07 Low grade squamous intraepithelial lesion on cervical Papanicolaou smear 8969971876 9105 R87.612 [id number] Jorge Luis Thomas MD [place] [address],[place] [address] 04/10/2020 15:00:11 04/10/2020 17:03:25 screening for malformation 399058443 Z36.3 [id number] Maryjo Combs [facility] [address],[place] [address] 04/10/2020 15:00:42 04/10/2020 16:54:45 Routine care 799670676 Z34.92 [id number] Maryjo Combs [facility] [address],[place] [address] 05/15/2020 15:29:35 05/21/2020 23:22:06 Routine care 231746545 Z34.92 [id number] Brisa Perkins [facility] [address],[place] [address] 06/05/2020 11:06:55 06/05/2020 11:54:39 Routine care 577946788 Z34.93 [id number] Jorge Luis Thomas MD [place] [address],[place] [address] 06/19/2020 09:44:25 06/19/2020 11:03:47 Small for gestational age fetus 101899671 O36.5999 [id number] MD Gladis Duckworth [address],[place] [address] 06/19/2020 13:56:11 06/19/2020 14:45:25 Uterine size for dates discrepancy 951903705 O26.843 Z3A.30 [id number] Jorge Luis Thomas MD [place] [address],[place] [address] 07/04/2020 09:52:56 07/04/2020 10:19:23 Routine care 376587936 Z34.81 [id number] Nancy Luna MD [place] [address],[place] [address] 08/12/2020 16:42:53 08/12/2020 18:00:12 screening 859553983 Z36.9 Marijuana user 810116006 F12.90 Insufficie nt care 0977607589 109 O09.33 High risk 4720 0007 O09.33 Past pregn aliyah history of pre-eclampsia 7409283831 25031 Z87.59 Tobacco user 700653528 Z 72.0 Counseling for harmful pattern of substance use 074208208 Z71.51 Multigravi da of advanced maternal age 226599997 O09.529 [id number] Jorge Luis Thomas MD [place] [address],[place] [address] 08/21/2020 10:06:27 08/21/2020 11:07:42 Routine care 434657405 Z34.81 05209 [facility] [address] [place] [address] 10/22/2020 14:18:06 10/22/2020 17:03:59 Anxiety 56483351 F41.9 care 08989361 8 Z39.0 [id number] Maryjo Combs [facility] [address],[place] [address] 12/02/2022 11:09:06 12/02/2022 11:55:08 Gynecologic examination 56473681 Z01.419 Z11.51 Take Calcium with Vitamin D [...] copy of today's plan if desired. Menorrhagia 198070633 N9 2.0 Ultrasound and follow up with . Family history of cancer. Pt will schedule appointmen ts today. [id number] Jorge Luis Thomas MD [place] [address] [place] [address] 12/03/2022 11:03:28 12/03/2022 11:42:45 Menorrhagia 264815900 N92.0 [id number] Jorge Luis Thomas MD [place] [address] [place] [address] 12/08/2022 11:58:23 12/08/2022 12:37:02 Menorrhagia 012587973 N92.0 this patient is a 42-year-ol d [...] l ablation. She understand s the risks. [id number] [facility] [address] [address] 09/28/2023 17:14:05 09/28/2023 17:53:40 Discharge from left nipple [id number] 2804723 N64.52 Exam and subjective complaints warrant further imaging and labs at this time.Order given; will call for apptComple te lab workWill await return of results and determine what f/u is needed. Time spent in visit is a total of 22 mins with at least 50% of visit consisting of counseling and review of plan of care. Screening mammography 24 472507 Z12.31 [id number] GARIMA Pratt [place] [address],[facility] [address] 10/27/2023 15:50:19 10/27/2023 17:13:10 Abnormal uterine bleeding 1115500491 9100 N93.9 The patient and I discussed [...] scheduled for u/s f/u with Dr. Thomas [id number] Jorge Luis Thomas MD [place] [address] [address] 11/02/2023 17:14:38 11/03/2023 16:05:28 Abnormal uterine bleeding 4710257539 9100 N93.9 [id number] Jorge Luis Thomas MD [place] [address] [address] 11/03/2023 16:28:21 11/03/2023 17:49:38 Menorrhagia 736575247 N92.0 this patient is a 42-year-ol d [...] l ablation. She understand s the risks. [id number] GARIMA Pratt [place] [address] [address] 10/04/2024 10:55:46 10/04/2024 14:38:12 Gynecologic examination 92851511 Z01.419 [facility] - BSPap - done todaySTI screen - declinedMa mmogram - scheduling /follows with breast specialist at [facility] cancer screening - n/aRoutine labs - [...] have been answered. Abnormal u terine bleeding 5004590707 9100 N93.9 Discussed AUB and h/o endometria l ablationpe lvic u/s ordered, u/s f/u with Dr. Thomas scheduled Time spent in visit is a total of 30 mins with at least 50% of visit consisting of counseling and review of plan of care. [id number] Jorge Luis Thomas MD [place] [address] [address] 10/11/2024 17:22:50 10/12/2024 14:33:57 Abnormal uterine bleeding 9294210601 9100 N93.9 [id number] Jorge Luis Thomas MD [place] [address] [address] 10/12/2024 10:12:10 10/12/2024 11:07:58 Menorrhagia 191216217 N92.0 This patient is a 44-year-ol d [...] Recorded Advance Directives Directive None Recorded Payers Insurance Date Sequence Insurance Name Policy Number Policy Archuleta Covered Member ID Archuleta Member ID Guarantor Name 04/02/2025 1 [facility] (MEDICAID HMO) [id number] Donna Givensr [id number] Donna Givensr 02/01/2022 *SELF PAY* Chalo desouza Ana 04/23/2025 1 [facility] (MEDICAID REPLACEMENT - HMO) Donna Perez [id number] Donna Perez 02/13/2023 PAYMENT PLAN Donna Perez 02/21/2023 PAYMENT PLAN Donna Perez Notes Date Note Type Note Provider Name and Address Organization Details Recorded Time 4 text/html This patient is a 43-year-old female [...] surgery today. We spent over 40 minutes [id number]. More 50% was Counseling Jorge Luis Thomas MD [address], [place], [address], [place] [facility] 11/03/2023 17:15:18 5 text/html Annual GYNReported by PatientGenitourinary symptomsFor menstrual cycle, patient reportsbleeding lasts more than 7 daysandirregular cycle intervals. For urinary symptoms, patient reportsno hematuriaandno incontinence. For vulva, patient reportsno genital lesion. For vagina, patient reportsnormal vaginal discharge.Breast symptomsFor breast, patient reportsno breast pain,no breast lump, andno nipple discharge.ContraceptionFo r current contraception, patient reportstubal ligation.Endocrine symptomsFor sexual complaints, patient reportsno sexual complaints,no pain during intercourse, andnormal libido. For menopausal symptoms, patient reportsno menopausal symptomsandnormal vaginal lubrication.Psychological symptomsFor psychological symptoms, patient reportsno depression,no anxiety, andno pmdd.Preventative measuresFor preventive measures, patient reportsencourage self breast examination,encourage regular exercise,encourage no tobacco use, andencourage regular mammograms starting age [age]yo wwelast pap 12/2022 : nilm, HPV (-)h/o BS, endometrial ablation 12/2023. No issues/minimal bleeding for the first 6 months after, now having irregular bleeding for the past 3 months. Bleeding for 2-3 weeks at a time, with about one week off in between. Flow alternates between light/spotting, to moderate flow. GARIMA Pratt [address], [place], [address], [facility] 10/04/2024 14:02:34 5 text/html This patient is a 44-year-old female [...] Jorge Luis Thomas MD [address], [place], [address], [facility] 10/12/2024 11:00:00 OBGyn Episode Ob Episode Information Episode Created Date Number of Fetuses Patient Bloodtype Patient rh Status Prepregnancy Weight lbs Domestic Partner Domestic Partner Phone Father Name Direct Service Professional Status 01/22/20 20 1 CLOSED Fetus Data [...] Domestic Partner Domestic Partner Phone Father Name Direct Service Professional Status 01/22/20 20 1 CLOSED Fetus Data [...] Domestic Partner Domestic Partner Phone Father Name Direct Service Professional Status 01/22/20 20 1 CLOSED Fetus Data [...] Domestic Partner Domestic Partner Phone Father Name Direct Service Professional Status 01/22/20 20 1 CLOSED Fetus Data [...] Domestic Partner Domestic Partner Phone Father Name Direct Service Professional Status 01/22/20 20 1 CLOSED Fetus Data [...] Domestic Partner Domestic Partner Phone Father Name Direct Service Professional Status 01/22/20 20 1 DELETED Jose Calculation [...] Domestic Partner Domestic Partner Phone Father Name Direct Service Professional Status 01/22/20 20 1 CLOSED Fetus Data [...] Domestic Partner Domestic Partner Phone Father Name Direct Service Professional Status 01/22/20 20 1 DELETED Jose Calculation [...] Domestic Partner Domestic Partner Phone Father Name Direct Service Professional Status 02/18/20 20 1 O Positive 153 CLOSED Fetus Data First Name Last Name Admitted to NICU Weight (g) Sex Living Outcome Pediatric Complications Fetus ID Race Codes Race Delivery Type 2778.25 1 M true Full Term 1518 Vaginal Delivery Problems Problem Notes Problem Name Start Date End Date Resolution Snomed Code Note Past history of pre-eclampsia [id number] per [facility] sumi e baby asa Blood coagulation disorder 57960768 saw mfm does no t need anticoagulation meds History of loop electrosurgical excision procedure [id number] [facility] - noted CL at 16wks, pt no showed. CL is WNL - per Daly 05/12 no other ultrasounds are needed. Low-lying placenta 04/10/20 20 SELFRESOLVED [id number] resolved Gastroesophageal reflux disease [id number] Jose Calculation Initial Jose Date Initial Exam [...] Gestation 0 [email or web address] 02/18/2020 08/26/20 20 0 Pre-katiuska Flowsheet Flowsheet Date 02/18/2020 Stacy Score Blood Edema Fundus Height Fundus Units Glucose Ketones Leukocytes Nitrite Labor Signs Protein Cervic Dilation Cervic Effacement Cervic Station 12 trace Type Weight in lbs Pre/Post Dialysis Refused Weight 159.860486579099 BP Diastolic BP Location Tested BP Systolic BP Type 74 127 Fetus Heart Rate Present A 150 Fetus Movement A No Comments Flowsheet Date 03/20/2020 Stacy Score Blood Edema Fundus Height Fundus Units Glucose Ketones Leukocytes Nitrite Labor Signs Protein Cervic Dilation Cervic Effacement Cervic Station 17 trace Type Weight in lbs Pre/Post Dialysis Refused Weight 163.444564009570 BP Diastolic BP Location Tested BP Systolic BP Type 75 116 Fetus Heart Rate Present A 150 Fetus Movement A No Comments to get u/s for cervical kyleigh th Flowsheet Date 03/20/2020 Stacy Score Blood Edema [...] Weight in lbs Pre/Post Dialysis Refused Weight 165.291094343100 BP Diastolic BP Location Tested BP Systolic [...] Weight in lbs Pre/Post Dialysis Refused Weight 166.759206717865 BP Diastolic BP Location Tested BP Systolic [...] Weight in lbs Pre/Post Dialysis Refused Weight 165.639722849431 BP Diastolic BP Location Tested BP Systolic [...] Weight in lbs Pre/Post Dialysis Refused Weight 167.696877898660 BP Diastolic BP Location Tested BP Systolic [...] Weight in lbs Pre/Post Dialysis Refused Weight 163.683525087454 BP Diastolic BP Location Tested BP Systolic [...] Weight in lbs Pre/Post Dialysis Refused Weight 162.999079439070 BP Diastolic BP Location Tested BP Systolic [...] Weight in lbs Pre/Post Dialysis Refused Weight 163.057552610963 BP Diastolic BP Location Tested BP Systolic [...] Weight in lbs Pre/Post Dialysis Refused Weight 162.045666706255 BP Diastolic BP Location Tested BP Systolic [...] At Estimated Date of Delivery true Thalassemia (Welsh, Georgian, Mediterranean, Or Background): MCV < 80 false Neural Tube Defect (Meningomyelocele, Spina Bifi da, Or Anencephaly) false Congenital Heart Defect false Down Syndrome false Bill-Sachs (eg, Caodaism, Cajun, Nicaraguan-Indonesian) f alse Paula Disease false Sickle Cell Disease Or Trait () false Hemophilia Or Other Blood Disorders false Muscular Dystrophy false Cystic Fibrosis false Kermit's Chorea false Intellectual Disability/Autism false If Yes, [...] Sterilization Discharge Date Comments 0 Induce d Regional-Ep idural 39.3 false Brisa Perkins CNM GERD/clot ting disorder/ hx LEEP Discharge Information Feeding Method Contraceptive Method Maternal HG B and HCT Levels Ob Episode Information Episode Created Date Number of Fetuses Patient Bloodtype Patient rh Status Prepregnancy Weight lbs Domestic Partner Domestic Partner Phone Father Name Direct Service Professional Status 08/27/20 20 1 DELETED Jose Calculation [...]
== END 2025-07-25 11:20 | disposition home or self-care (01) ==
PROVIDERS: Emergency Provider Nurse Practitioner; PCP Emergency Medicine
DX: N39.0 Urinary tract infection, site not specified (principal); F17.210 Nicotine dependence, cigarettes, uncomplicated; F12.90 Cannabis use, unspecified, uncomplicated; M19.90 Unspecified osteoarthritis, unspecified site; Z86.19 Personal history of other infectious and parasitic diseases
CPT/HCPCS: 81003; 87077; 87086; 87186; 99213; G0463